=== PATIENT | female | born 1965 | race Caucasian/White ===

== ENCOUNTER 2016-09-22 11:17 | Emergency (ER) | payer OTHER ==
[2016-09-22] MEDS ORDERED: Ondansetron INJ* 2 MG/ML VIAL IV ONE (11:46)
[2016-09-22] MEDS ORDERED: Meclizine TAB* 12.5 MG PO ONE (11:46)
[2016-09-22] MEDS ORDERED: NS 0.9% 1000 ML* 1,000 ML IV ONE (11:46)
[2016-09-22 12:10] LABS: Urine Bilirubin Negative (Negative); Urine Glucose Negative (Negative); Urine Nitrite Negative (Negative)
--- NOTE | 2016-09-22 12:24 | RAD ---
HISTORY: Dizziness, near syncope, head trauma COMPARISONS: November 27, 2012 TECHNIQUE: Multiple contiguous axial CT scans were obtained of the head without intravenous contrast. FINDINGS: HEMORRHAGE/INFARCT: There is no hemorrhage or acute infarct. MASSES/SHIFT: There is no mass or shift. EXTRA-AXIAL SPACES: There are no extra-axial fluid collections. SULCI AND VENTRICLES: The sulci and ventricles are normal in size and position for the patient's stated age. CEREBRUM: There are no focal parenchymal abnormalities. BRAINSTEM: There are no focal parenchymal abnormalities. CEREBELLUM: There are no focal parenchymal abnormalities. VESSELS: The vessels are grossly normal. PARANASAL SINUSES: The paranasal sinuses are clear. ORBITS: The orbits are unremarkable. BONES AND SOFT TISSUE: No bone or soft tissue abnormalities are noted. OTHER: None IMPRESSION: NO ACUTE INTRACRANIAL PATHOLOGY.
[2016-09-22 12:25] LABS: Benzodiazepine Urine Screen None Detected (None Detect)
--- NOTE | 2016-09-22 12:27 | RAD ---
HISTORY: Dizziness anxiety COMPARISONS: June 06, 2015 VIEWS: 2: Frontal dual-energy and lateral views of the chest. FINDINGS: CARDIOMEDIASTINAL SILHOUETTE: The cardiomediastinal silhouette is normal. CULLEN: The cullen are normal. PLEURA: The costophrenic angles are sharp. No pleural abnormalities are noted. LUNG PARENCHYMA: There is a stable mild diffuse reticular pattern. ABDOMEN: The upper abdomen is clear. There is no subphrenic gas. BONES AND SOFT TISSUES: No bone or soft tissue abnormalities are noted. OTHER: None. IMPRESSION: STABLE MILD CHRONIC APPEARING INTERSTITIAL CHANGES. NO ACTIVE CARDIOPULMONARY DISEASE.
[2016-09-22 12:44] LABS: Hematocrit 39 % (35-47); Hemoglobin 13.2 g/dl (12.0-16.0); Mean Corpuscular HGB Conc 34 g/dl (31-36); Mean Corpuscular Hemoglobin 29 pg (27-31); Mean Corpuscular Volume 85 fL (80-97); Mean Platelet Volume 9 um3 (7.4-10.4); Red Blood Count 4.53 10^6/ul (4.0-5.4); Red Cell Distribution Width 14 % (10.5-15); White Blood Count 7.6 10^3/ul (3.5-10.8)
[2016-09-22 12:58] LABS: ALT 33 U/L (7-52); AST 21 U/L (13-39); Albumin 4.3 g/dL (3.2-5.2); Alkaline Phosphatase 55 U/L (34-104); Anion Gap 6 mmol/L (2-11); BUN/Creatinine Ratio 15.9 (8-20); Blood Urea Nitrogen 13 mg/dL (6-24); C Reactive Protein 12.59 mg/L (< 5.00); CO2 Carbon Dioxide 29 mmol/L (22-32); Calcium 9.5 mg/dL (8.6-10.3); Chloride 103 mmol/L (101-111); Creatine Kinase 56 U/L (10-223); EGFR African American 94.1 (>60); EGFR Non-African American 73.2 (>60); Globulin 2.8 g/dL (2-4); Glucose 116 mg/dL (70-100); Magnesium 1.7 mg/dL (1.9-2.7); Potassium 3.8 mmol/L (3.5-5.0); Sodium 138 mmol/L (133-145); Total Protein 7.1 g/dL (6.4-8.9)
[2016-09-22 13:13] LABS: Alcohol < 10 mg/dL (<10)
[2016-09-22 13:24] LABS: TSH (Thyroid Stimulating Horm) 1.72 mcIU/mL (0.34-5.60)
[2016-09-22] MEDS ORDERED: Magnesium Oxide TAB* 400 MG PO ONE (14:08)
[2016-09-22 14:30] VITALS: BP 116/81
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
== END 2016-09-22 14:28 | disposition home or self-care (01) ==
LOC: ED 11:17
DX: R42 Dizziness and giddiness (principal); R51 Headache; I25.2 Old myocardial infarction; K21.9 Gastro-esophageal reflux disease without esophagitis; Z87.891 Personal history of nicotine dependence
CPT/HCPCS: 36415; 70450; 71020; 80053; 80307; 80320; 81003; 82550; 83605; 83735; 83880; 84443; 84484; 85025; 86140; 87502; 93005; 96361; 96374; 99284; A9270-GY; G0480; J2405

== ENCOUNTER 2016-11-15 16:27 | Observation (INO) | payer OTHER ==
[2016-11-15] MEDS ORDERED: Aspirin Low Dose CHEW TAB* 81 MG PO ONE (18:55)
[2016-11-15 19:02] LABS: Hematocrit 40 % (35-47); Hemoglobin 13.4 g/dl (12.0-16.0); Mean Corpuscular HGB Conc 34 g/dl (31-36); Mean Corpuscular Hemoglobin 28 pg (27-31); Mean Corpuscular Volume 84 fL (80-97); Mean Platelet Volume 9 um3 (7.4-10.4); Red Blood Count 4.73 10^6/ul (4.0-5.4); Red Cell Distribution Width 14 % (10.5-15); White Blood Count 10.9 10^3/ul (3.5-10.8)
[2016-11-15 19:17] LABS: Albumin 4.6 g/dL (3.2-5.2); BUN/Creatinine Ratio 18.4 (8-20); Calcium 9.9 mg/dL (8.6-10.3); EGFR African American 87.6 (>60); EGFR Non-African American 68.1 (>60); Total Bilirubin 0.5 mg/dL (0.2-1.0); Total Protein 7.6 g/dL (6.4-8.9)
[2016-11-15] MEDS ORDERED: Albuterol HFA INHALER* 8 gm MDI INH PRN (19:30)
[2016-11-15] MEDS ORDERED: ALPRAZolam TAB* 0.25 MG PO PRN (19:30)
[2016-11-15] MEDS: Heparin VIAL(*) 5000 UNITS/ML VIAL (FIVE THOUSAND) SUBCUT SCH (21:07)
--- NOTE | 2016-11-15 21:10 | RAD ---
Indication: Chest pain, dizziness. Single frontal view of the chest performed at 1922 hours was reviewed. Comparison is made with previous exam dated September 22, 2016. No mediastinal shift is noted. Heart is of normal size and configuration. Lung dougherty appear clear. IMPRESSION: NO ACTIVE CARDIOPULMONARY DISEASE IS NOTED.
--- NOTE | 2016-11-15 21:39 | HP ---
CC: Dr. Jacqui Joseph * [facility] MEDICINE HISTORY AND PHYSICAL: DATE OF ADMISSION: 11/15/16 PRIMARY CARE PHYSICIAN: Dr. Jacqui Joseph. ATTENDING PHYSICIAN: Dr. Jeet Olvera *(dictation provided by Nesha Luis NP). CHIEF COMPLAINT: Presyncopal episodes. HISTORY OF PRESENT ILLNESS: Ms. Lieberman is a 51-year-old female with a past medical history of obesity, BOOP, anxiety, who presents today to the hospital with concern for presyncopal episodes. Ms. Lieberman states that over the past few weeks, she has been having episodes where she will feel like she is about to pass out. She describes her vision as gtunneling and going dark. She describes feeling sweaty and tingly. She has had some nausea. She has felt short of breath. She is also describing burning sensation in the center of her chest with these episodes. These episodes occur randomly and they are not associated with activity. She was a previous smoker and alcoholic, who has been abstinent from both of these for the past couple of years. She has been in increased stress recently with plans for going to a conference this weekend. Because of these symptoms, she went to see Dr. Sears, who felt that it was not pulmonary in nature. She also went to see Gastroenterology, who felt that these symptoms were not gastroenterological in nature. The patient also described symptoms consistent with IBS with constipation, diarrhea, abdominal pain, nausea, and vomiting. The plan had been for the patient to follow up with the family services manager for endoscopy, both upper and lower, and that is being arranged outpatient. These symptoms are separate from these episodes where she feels presyncopal. After she went to see the family services manager today , they recommended that she follow up with Cardiology. She stopped by Dr. Best's office where an EKG was checked and there was concern that there were subtle changes in the ST segments and therefore, she was asked to come to the emergency room for evaluation. The patient states she needed to stop at home to take care of her pet, but then did present today. She states that while at Dr. Best's office, she had another episode where she felt presyncopal. She describes having a sense of "impending doom." She had another episode on driving back here to the hospital today where she felt like she would pass out and actually was about to pull off the road when the symptoms resolved. In the emergency room today, the patient's troponin is 0.00. Her EKG showed some depressions in V2, V3, T-wave inversions in V2 and V3, with a little bit of flattening in V3 compared to previous. She is in sinus rhythm. PAST MEDICAL HISTORY: 1. History of PVCs, on metoprolol. 2. Obesity. 3. Anxiety. 4. History of alcoholism, currently alcohol free for the past 2 years. 5. 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 6. History of recurrent aspiration pneumonitis secondary to alcoholism. 7. IBS. PAST SURGICAL HISTORY: 1. History of x2. 2. History of hysterectomy and oophorectomy. MEDICATIONS: 1. B complex vitamin 1 tab daily. 2. Calcium 2000 mg p.o. daily. 3. Calcium, magnesium, zinc 1 tab p.o. daily. 4. Fluticasone/vilanterol 1 inhalation daily. 5. Multivitamin 1 tab p.o. daily. 6. [place]-3 fatty acid 1200 mg p.o. daily. 7. Alprazolam 0.25 mg p.o. t.i.d. p.r.n. 8. Albuterol inhaler 2 puffs inhaled q.4 hours p.r.n. 9. Cholecalciferol 1000 units p.o. daily. 10. Escitalopram 20 mg p.o. daily. 11. Metoprolol succinate 50 mg p.o. daily. 12. Spironolactone 25 mg p.o. daily. ALLERGIES: To NICKEL and SULFA DRUGS. FAMILY HISTORY: The patient states her father has but she did not know the circumstances surrounding that. Her mother is alive and well. No history of significant cardiac disease in the family per her recollection today. SOCIAL HISTORY: Again, the patient is a former smoker, but quit and has been off alcohol for the past 2 years. REVIEW OF SYSTEMS: A 14-point review of systems is completed on Ms. Lieberman and all those not mentioned above were negative. PHYSICAL EXAMINATION GENERAL: Ms. Lieberman is sitting in the bed. She is in no acute distress. VITAL SIGNS: Temperature 97.5, heart rate 60, respiratory rate 16, O2 saturation 97% on room air, blood pressure 103/58. LUNGS: Clear to auscultation bilaterally with no accessory muscle use and good aeration. HEART: S1, S2. No murmur, rub, or gallop, and regular. ABDOMEN: Soft and nontender with bowel sounds positive x4. EXTREMITIES: No cyanosis or edema. NEURO: She is alert, she is oriented x3. She moves all extremities equally. There is no facial asymmetry or focal weakness. Extraocular movements are intact. SKIN: Intact. DIAGNOSTIC STUDIES/LAB DATA: Sodium 135, potassium 4.0, chloride 100, serum bicarbonate 27, BUN 16, creatinine 0.87, glucose 115. Troponin 0.00. WBC 10.9 , hemoglobin 13.4, hematocrit 40, platelet count 222. EKG is as been read above. Chest x-ray is pending. ASSESSMENT AND PLAN: Ms. 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 Dr. Best's office was concerned that her EKG showed some ST depression and T-wave inversions that were perhaps new. Therefore, she was asked to come to the emergency room and to be admitted for further evaluation. Our plans are as follows: 1. Presyncopal episodes. Again, the patient has a first troponin which was negative. Her EKG does show some mild changes. Plan to repeat EKG in the a.m. Her troponins will be trended and she will go on for nuclear medicine chemical stress test tomorrow. She will also be monitored on telemetry for any evidence of arrhythmia that could be leading to this symptom. Also plan to check orthostatic vitals. I do not have any other clear sense of what would be causing these symptoms if they are not cardiac in nature. The patient does describe being under extreme stress recently, perhaps, it is a stress reaction. She also reports having some gastrointestinal upset that is a little more intense for her than usual and she is following up with Gastroenterology for that. Further workup will be determined based on clinical course. 2. 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 Plan to continue home medications. 3. Premature ventricular contractions. Continue metoprolol. 4. Hypertension. Continue spironolactone. 5. DVT prophylaxis. With heparin subcu. 6. Disposition. To telemetry floor. TIME SPENT: Approximately 60 minutes was spent in the admission of this patient , more than half the time spent with the patient at the bedside reviewing the events leading to this hospitalization, performing the physical examination, and reviewing my plan of care. NESHA LUIS NP [id number]/[facility] #: [id number] [place]
[2016-11-16] MEDS: Heparin VIAL(*) 5000 UNITS/ML VIAL (FIVE THOUSAND) SUBCUT SCH ×2 (05:34→15:12)
[2016-11-16] MEDS ORDERED: Metoprolol Succinate XL TAB* 50 MG PO SCH (09:00)
[2016-11-16] MEDS ORDERED: Citalopram TAB* 40 MG PO SCH (09:00)
[2016-11-16] MEDS ORDERED: Cholecalciferol TAB* 1000 UNITS PO SCH (09:00)
[2016-11-16] MEDS ORDERED: Spironolactone TAB* 25 MG PO SCH (09:00)
[2016-11-16] MEDS ORDERED: Regadenoson* 0.4 MG/5 ML SYRINGE ONE (12:13)
[2016-11-16] MEDS ORDERED: Aminophylline IV* 25 MG/ML 10 ML VIAL ONE (12:14)
--- NOTE | 2016-11-16 14:49 | PN ---
Subjective Date of Service: 11/16/16 Interval History: Ms. Lieberman denies complaint today and is eager for discharge to home. Objective Active Medications: Albuterol (Ventolin Hfa Inhaler*) 1 puff INH Q4H PRN Alprazolam (Xanax Tab*) 0.25 mg PO TID PRN Cholecalciferol (Vitamin D Tab*) 1,000 units PO DAILY [facility] Citalopram Hydrobromide (Celexa Tab*) 40 mg PO DAILY [facility] Heparin Sodium (Porcine) (Heparin Vial(*)) 5,000 units SUBCUT Q8HR [facility] Metoprolol Succinate (Toprol Xl Tab*) 50 mg PO DAILY [facility] Spironolactone (Aldactone Tab*) 25 mg PO DAILY [facility] Vital Signs 11/15/16 11/15/16 11/15/16 19:09 19:25 19:32 Temperature Pulse Rate 70 71 Respiratory 17 17 Rate Blood Pressure 125/79 (mmHg) O2 Sat by Pulse 94 Oximetry 11/15/16 11/15/16 11/16/16 20:00 23:46 00:07 Temperature 98.7 F 97.5 F Pulse Rate 75 58 Respiratory 20 20 17 Rate Blood Pressure 128/93 97/61 (mmHg) O2 Sat by Pulse 94 97 Oximetry 11/16/16 11/16/16 11/16/16 02:03 04:09 07:24 Temperature 97.3 F 98.0 F Pulse Rate 58 59 Respiratory 16 16 20 Rate Blood Pressure 103/62 105/65 (mmHg) O2 Sat by Pulse 97 93 Oximetry 11/16/16 11:10 Temperature 97.5 F Pulse Rate 61 Respiratory 16 Rate Blood Pressure 114/81 (mmHg) O2 Sat by Pulse 96 Oximetry Oxygen Devices in Use Now: None Appearance: Female sitting up in bed in NAD Eyes: No Scleral Icterus Ears/Nose/Mouth/Throat: Mucous Membranes Moist Neck: Trachea Midline Respiratory: Symmetrical Chest Expansion and Respiratory Effort, Clear to Auscultation Cardiovascular: NL Sounds; No Murmurs; No JVD, No Edema Abdominal: NL Sounds; No Tenderness; No Distention Lymphatic: No Cervical Adenopathy Extremities: No Edema Skin: No Rash or Ulcers Neurological: Alert and Oriented x 3, NL Muscle Strength and Tone Nutrition: Taking PO's Result Diagrams: 11/15/16 18:50 11/15/16 18:50 Additional Lab and Data: Lab Results 11/15/16 Range/Units 18:50 WBC 10.9 H (3.5-10.8) 10^3/ul RBC 4.73 (4.0-5.4) 10^6/ul Hgb 13.4 (12.0-16.0) g/dl Hct 40 (35-47) % MCV 84 (80-97) fL MCH 28 (27-31) pg MCHC 34 (31-36) g/dl RDW 14 (10.5-15) % Plt Count 222 (150-450) 10^3/ul MPV 9 (7.4-10.4) um3 Neut % (Auto) 67.6 (38-83) % Lymph % (Auto) 24.5 L (25-47) % [place] % (Auto) 5.2 (1-9) % Eos % (Auto) 1.0 (0-6) % Baso % (Auto) 1.7 (0-2) % Absolute Neuts (auto) 7.4 (1.5-7.7) 10^3/ul Absolute Lymphs (auto) 2.7 (1.0-4.8) 10^3/ul Absolute Monos (auto) 0.6 (0-0.8) 10^3/ul Absolute Eos (auto) 0.1 (0-0.6) 10^3/ul Absolute Basos (auto) 0.2 (0-0.2) 10^3/ul Absolute Nucleated RBC 0.01 10^3/ul Nucleated RBC % 0 Assess/Plan/Problems-Billing Assessment: Mr. 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 - Patient Problems (1) Pre-syncope Comment: Associated with chest pain. Trops negative. Concern new possibly ischemic EKG changes. Stress test without evidence of reversible ischemia, low risk. (2) BOOP (bronchiolitis obliterans with organizing pneumonia) Comment: Asymptomatic. Follows with Dr. Sears. Continue breo and albuterol. (3) Anxiety Comment: Continue alprazolam and escitalopram. (4) Afib Comment: In SR. Not on anticoagulation due to history of cerebral aneurysm, follows with Dr. Murray. (5) DVT prophylaxis Comment: Heparin SQ. Status and Disposition: OBV. Anticipate discharge to home when medically stable.
--- NOTE | 2016-11-16 14:59 | RAD ---
Edited for charges. INDICATION: Near syncopal episodes. COMPARISON: No relevant prior exams available on the [facility] [place] for comparison. TECHNIQUE: 10.570 mCi of Tc-99m Myoview were administered IV. SPECT images of the heart were obtained. Later on the same day, under the direction of Dr. Dodd, the patient was given an IV injection of a pharmacologic stress agent. Subsequently, the patient was given an IV injection of 25.300 mCi Tc-99m Myoview. SPECT images of the heart were obtained and a gated wall motion study was performed. FINDINGS: Gated wall motion images were obtained at stress and demonstrate wall motion to be within normal limits. The calculated left ventricular ejection fraction is 65 % at stress. Estimated LEFT ventricular end diastolic volume is 113 mL. TID 1.14. Artifact from inferior gut activity noted. Suggestion of mild fixed thinning at the cardiac apex. Based on review of the attenuation corrected and non corrected images the distribution of radiopharmaceutical within the myocardium on the stress and rest images is within normal limits. No suspicious fixed or reversible regions of hypoperfusion evident. IMPRESSION: 1. Upper normal LEFT ventricular end-diastolic volume. Normal range LEFT ventricular ejection fraction at stress. 2. No compelling evidence for presence of an infarct or stress-induced ischemia. ASSESSMENT: Low risk. MTDD
[2016-11-16 16:11] VITALS: BP 126/80
--- NOTE | 2016-11-17 03:31 | DS ---
CC: Dr. Jacqui Joseph; Dr. Best * DISCHARGE SUMMARY: DATE OF ADMISSION: 11/15/16 DATE OF DISCHARGE: 11/16/16 ATTENDING PHYSICIAN: Yazan Bueno MD *(dictation provided by Nesha Luis NP ) PRIMARY CARE PHYSICIAN: Dr. Jacqui Joseph. BINDER LAYER: Danitza Best MD PRIMARY DIAGNOSIS: Presyncopal episodes. SECONDARY DIAGNOSES: 1. History of premature ventricular contractions, on metoprolol. 2. Obesity. 3. Anxiety. 4. History of alcoholism, currently abstinent from past 2 years. 5. 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 6. History of recurrent aspirations pneumonitis secondary to alcoholism. 7. Irritable bowel syndrome. PAST SURGICAL HISTORY: 1. History of x2. 2. History of hysterectomy and oophorectomy. MEDICATIONS AT THE TIME OF DISCHARGE: There are no medications changes: 1. B complex vitamin 1 tab daily. 2. Calcium 2000 mg p.o. daily. 3. Calcium, magnesium, and zinc 1 tab p.o. daily. 4. Fluticasone/vilanterol 1 inhalation daily. 5. Multivitamin 1 tab p.o. daily. 6. Hammond-3 fatty acid 1200 mg p.o. daily. 7. Alprazolam 0.25 mg p.o. t.i.d. p.r.n. 8. Albuterol inhaler 2 puffs inhaled q.4 hours p.r.n. 9. Cholecalciferol 1000 units p.o. daily. 10. Escitalopram 20 mg p.o. daily. 11. Metoprolol succinate 50 mg p.o. daily. 12. Spironolactone 25 mg p.o. daily. HOSPITAL COURSE: Ms. Lieberman is a 51-year-old female who presents to the hospital on 11/15/16 with concern for episodes of presyncope. Please see the dictated H and P from myself for complete details. In brief, the patient had reported that she had had episodes where she felt like she was going to pass out starting in September. There was no clear pattern to these episodes. One episode happened while at school while walking out, one episode happened at [employer] while standing in line to pay, and one episode happened when she was sitting on a couch at home. She describes feeling like the room was going dark , with symptoms of diaphoresis and nausea. She has had some discomfort in the center of her chest with these episodes. She has been evaluated in the emergency department here and then in [place] for the episodes with no acute findings. She followed with Dr. 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 She also followed up at [facility], and she is scheduled for an upper and lower endoscopy, though it was not felt that her her presyncopal episodes were related to any GI complaint. She then saw Dr. Best and the EKG was obtained, which showed concern for possible ST segment changes and therefore she came to the emergency room. In the emergency room here, she had troponin, which was 0. EKG showed suppressions of V2, V3 with T-wave inversions in V2, V3 with sinus rhythm. Ms. Lieberman was admitted to the hospital. She went on for a stress test, which was read as follows: "Upper normal left ventricular end-diastolic volume, normal range left ventricular ejection fraction at rest. No compelling evidence for presence of infarct or stress-induced ischemia, low risk." Ms. Lieberman had no episodes of presyncope while here in the hospital. She had no evidence of arrhythmia on telemetry monitoring. Her orthostatic vital signs did not show her to be orthostatic. Her symptoms do not appear to be related to any ischemic heart disease. I question, whether or not perhaps she does have arrhythmia leading to these symptoms although her description of them are a bit unusual. I have recommended to her that she go follow up with Dr. Best and possibly consider a loop monitor implantation. I have also discussed with her that her symptoms could be related to stress and anxiety, a possibility that she herself suggested. Regardless, I think she warrants consideration of loop monitor implantation and close follow up, Ms. Lieberman is medically stable discharge to home to follow up with Dr. Best and Dr. Jacqui Joseph. DISPOSITION: Home. DIET: Low-fat, low salt. ACTIVITY: As tolerated. FOLLOWUP PLANS: Please follow up with Dr. Best and Dr. Jacqui Joseph. I asked the patient to call for an appointment tomorrow morning. TIME SPENT: Approximately 60 minutes was spent in the discharge of this patient , more than half of the time was spent with the patient at the bedside reviewing the events leading up to this hospitalization, performing the physical examination, and reviewing my plan of care. NESHA LUIS NP [id number]/[facility] #: [id number] [place]
== END 2016-11-16 17:18 | disposition home or self-care (01) ==
LOC: ED 16:27 → MEDTELE 19:05
PROVIDERS: ADMIT Internal Medicine; ATTEND Internal Medicine
DX: R55 Syncope and collapse (principal); I49.3 Ventricular premature depolarization; E66.9 Obesity, unspecified; F41.9 Anxiety disorder, unspecified; F10.20 Alcohol dependence, uncomplicated; K58.9 Irritable bowel syndrome, unspecified; Z79.899 Other long term (current) drug therapy; Z88.2 Allergy status to sulfonamides; Z87.891 Personal history of nicotine dependence; R94.31 Abnormal electrocardiogram [ECG] [EKG]
CPT/HCPCS: 36415; 71010; 78452; 80053; 83605; 84484; 85025; 93005; 93017; 96372; 99283; A9270-GY; A9502; G0378; J0280; J1644; J2785

== ENCOUNTER 2016-12-03 09:01 | Day surgery (SDC) | payer OTHER ==
--- NOTE | 2016-11-27 22:28 | HP ---
PREOPERATIVE HISTORY AND PHYSICAL: DATE OF ADMISSION: 12/03/16 PROVIDER: David Green MD (DICTATED BY RALF ANDREWS) CHIEF COMPLAINT: Left foot pain. HISTORY OF PRESENT ILLNESS: Jarrod is a 51-year-old female who has been followed by Dr. Green for ongoing pain and swelling in the left foot secondary to a ganglion cyst. This has been giving her some dorsal nerve tingling as well. She underwent an MRI showing a multiloculated ganglion cyst which stretches the entire length of the first web space and tracks to the second MTP joint. She states that it is gradually getting worse and is making footwear harder to find that is comfortable without pressing on this area. She is interested in surgical intervention for excision of the cyst. PAST MEDICAL HISTORY: 1. History of high blood pressure. 2. History of a heart attack. 3. Arthritis. 4. Thyroid nodules. 5. GERD. 6. Depression. 7. Anxiety. 8. History of alcohol abuse. PAST SURGICAL HISTORY: 1. Tonsils and adenoids. 2. Pilonidal cystectomy. 3. Appendectomy. 4. Two C-sections. 5. Complete hysterectomy. 6. An open lung biopsy. She reports facial itching and also states that she stopped breathing with anesthesia. CURRENT MEDICATIONS: 1. Breo Ellipta 100/25 mcg inhaler 1 to 2 puffs inhaled daily. 2. Ranitidine HCl 300 mg 1 p.o. q.h.s. 3. Toprol-XL 50 mg 1 p.o. daily. 4. Lexapro 20 mg 1 p.o. daily. 5. Multivitamin 1 p.o. daily. 6. Vitamin B complex 1 p.o. daily. 7. Calcium and magnesium 750, 300/300 mg daily. 8. Fish oil supplement daily. 9. Vitamin C supplement daily. 10. Spironolactone 25 mg 1 p.o. daily. 11. Vitamin D3 1000 international units 1 p.o. daily. 12. Probiotic as needed. 13. Ventolin HFA 108 mcg 1 to 2 puffs q.4 hours p.r.n. 14. Xanax 0.25 mg 1 p.o. 4 times daily as needed. ALLERGIES: SULFA ANTIBIOTICS and NICKEL. FAMILY HISTORY: Positive for high blood pressure. SOCIAL HISTORY: The patient lives alone. 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 She is a previous smoker; however, she quit 2-1/ 2 years ago. She smoked for 30 years prior to that. She denies alcoholic beverages, though she is a recovering addict. She does not exercise regularly. REVIEW OF SYSTEMS: Constitutional: Positive for recent hospitalization for chest pain; however, she was diagnosed with anxiety. Negative for fevers, chills, or night sweats. Eyes: Negative for blurred or double vision. ENT: Positive for runny nose secondary to allergies. Negative for frequent nosebleeds or hearing changes. Cardiovascular: Positive for recent chest pain. Negative for heart palpitations. Respiratory: Positive for shortness of breath. Negative for chronic cough. Gastrointestinal: Negative for nausea , vomiting, diarrhea, or constipation. Positive for GERD. Genitourinary: Negative for urinary tract infections or kidney stones. Musculoskeletal: Negative for chronic back pain or previous fractures. Neurologic: Negative for dizziness, lightheadedness, peripheral neuropathy, or weakness. Skin: Positive for rash on her face. Negative for any other skin lesions. Endocrine: Positive for recent weight gain. Negative for fatigue. Hematology: Negative for easy bleeding or bruising. Allergic: Positive for seasonal allergies. Negative for hay fever. Psychiatric: Positive for depression and anxiety. PHYSICAL EXAMINATION GENERAL: She is a well-developed, well-nourished pleasant female in no acute distress at rest. She is alert and oriented x3 with appropriate mood and affect. VITAL SIGNS: The patient is 5 feet 9 inches, 275 pounds, blood pressure 115/75 , pulse of 76, temperature 97.2, respirations 17. HEENT: Normocephalic, atraumatic. Her hearing and vision are grossly intact. NECK: Her trachea is midline. RESPIRATORY: Lungs clear to auscultation bilaterally. No wheezes, rales, or rhonchi. CARDIOVASCULAR: Regular rate and rhythm. No murmurs, rubs, or gallops. Normal S1, S2. ABDOMEN: Obese, nontender. Normal bowel sounds. EXTREMITIES: Exam of the left lower extremity, skin is intact without abrasions or open wounds. There is a palpable soft tissue mass over the dorsum of the foot that extends down into the forefoot. This is tender to palpation. She has a strongly positive Tinel's over the DP and in this area. Her sensation to light touch is intact distally. She has a 2+ dorsalis pedis pulse. IMPRESSION: Left foot ganglion cyst. PLAN: The patient is to undergo left midfoot ganglion cyst excision by Dr. Green on 12/03/16. The risks, benefits, and postoperative course were discussed with the patient at length and she would like to proceed. A prescription for oxycodone was sent to her pharmacy for postoperative pain. All of her questions were answered to her full satisfaction. She is understanding to call if she develops problems or concerns. We will follow up with the patient in the postoperative phase. RALF ANDREWS [id number]/[facility] #: [id number] [place]
[~2016-12-03 09:01] MED LIST: Buffered Lidocaine 0.9% SYRIN* 5 ML/SYR SYRINGE INTRADERM ONE; Buffered Lidocaine 0.9% SYRIN* 5 ML/SYR SYRINGE ONE; Famotidine IV* 10 MG/ML 2 ML (20 mg) IV ONE; Famotidine IV* 10 MG/ML 2 ML (20 mg) ONE; ceFAZolin 2 GM PREMIX(*) 2 GM/50 ML BAG IVPB ONE
[2016-12-03] MEDS ORDERED: Ondansetron INJ* 2 MG/ML VIAL ONE (09:28)
[2016-12-03] MEDS ORDERED: Ketorolac INJ* 30 MG/ML 1 ML VIAL ONE (09:28)
[2016-12-03] MEDS ORDERED: Dexamethasone IV* 4 MG/ML 1 ML (4 MG) ONE (09:28)
[2016-12-03] MEDS ORDERED: Propofol* 10 MG/ML 20 ML BTL IV PUSH ONE (09:28)
[2016-12-03] MEDS ORDERED: Lidocaine 2% PF * 5 ML VIAL ONE (09:28)
[2016-12-03] MEDS ORDERED: fentaNYL* 50 MCG/ML 2 ML VIAL (100 MCG VIAL) ONE ×2 (09:29→10:29)
[2016-12-03] MEDS ORDERED: KETAMINE HCL* 50 MG/ML 10 ML VIAL ONE (09:29)
[2016-12-03] MEDS ORDERED: Midazolam* 1 MG/ML 5 ML VIAL (5 MG) ONE (09:29)
[2016-12-03] MEDS ORDERED: Lidocaine 2% PF* 10 ML AMP ONE (10:04)
[2016-12-03] MEDS ORDERED: Bupivacaine 0.5% SDV PF* 30 ML VIAL ONE (10:04)
[2016-12-03] MEDS ORDERED: Ondansetron INJ* 2 MG/ML VIAL IV PRN (10:43)
[2016-12-03] MEDS ORDERED: oxyCODONE/Acetamin 5/325 MG* TAB PO PRN (10:43)
[2016-12-03] MEDS ORDERED: DiMENhydriNATE IV* 50 MG/ML VIAL IV PUSH PRN (10:43)
[2016-12-03] MEDS ORDERED: fentaNYL* 50 MCG/ML 2 ML VIAL (100 MCG VIAL) IV PRN (10:43)
[2016-12-03] MEDS ORDERED: HYDROmorphone* 1 MG/ML 1 ML SYR ONE (11:06)
[2016-12-03] MEDS ORDERED: oxyCODONE/Acetamin 5/325 MG* TAB ONE (12:12)
[2016-12-03 13:06] VITALS: BP 125/68
--- NOTE | 2016-12-04 16:13 | OP ---
DATE OF OPERATION: 12/03/16 - [facility] DATE OF : 61 SURGEON: David Green MD TECHNICAL MARKETING ENGINEER: Sylwia Barriga PA-C ANESTHESIOLOGIST: Petr Solomon MD ANESTHESIA: General PRE-OP DIAGNOSIS: Cyst, left ganglion, mid foot. POST-OP DIAGNOSIS: Cyst, left ganglion, mid foot. OPERATIVE PROCEDURE: Excision of cyst, left mid foot. DESCRIPTION OF PROCEDURE: The patient was taken to the operating room where S- shaped incision was made along the first and second metatarsal interspace dorsally. The ganglion was encountered just deep to the tendons. We freed up the distal end of the tendon and retracting it proximally as we dissected it away from the first and second metatarsals. Proximally, there was a small tongue of the ganglion coursing more laterally near the base of the second metatarsal. This was transected and then we irrigated and cauterized the small tail at that level. The connecting branch over the redundant branch of the deep peroneal artery was interrupted at this point and cauterized. The cyst was sent for pathology. We irrigated all the area thoroughly and closing with 2 -0 Vicryl, 3-0 nylon for the skin and a compressive dressing plaster splint. [id number]/[facility] #: [id number] MTDD
== END 2016-12-03 13:14 | disposition home or self-care (01) ==
LOC: OR 09:01
PROVIDERS: ATTEND Orthopaedic Surgery
DX: M67.472 Ganglion, left ankle and foot (principal); I10 Essential (primary) hypertension; I25.2 Old myocardial infarction; K21.9 Gastro-esophageal reflux disease without esophagitis; F32.9 Major depressive disorder, single episode, unspecified; F41.9 Anxiety disorder, unspecified; Z88.2 Allergy status to sulfonamides; Z87.891 Personal history of nicotine dependence
CPT/HCPCS: 88304; A9270-GY; J0690; J1100; J1170; J1885; J2001; J2250; J2405; J2704; J3010

== ENCOUNTER 2017-11-28 09:31 | Day surgery (SDC) | payer OTHER ==
[~2017-11-28 09:31] MED LIST changes: -Buffered Lidocaine 0.9% SYRIN* 5 ML/SYR SYRINGE ONE; +Bupivacaine 0.25% SDV* 30 ML ONE; -Famotidine IV* 10 MG/ML 2 ML (20 mg) IV ONE; -Famotidine IV* 10 MG/ML 2 ML (20 mg) ONE; +Sodium Citrate/Citric Acid* 15 ML UDC PO ONE; -ceFAZolin 2 GM PREMIX(*) 2 GM/50 ML BAG IVPB ONE
[2017-11-28] MEDS ORDERED: ceFAZolin 2 GM PREMIX (*) 2 GM/50 ML BAG IVPB ONE (09:52)
[2017-11-28] MEDS ORDERED: ceFAZolin 1 GM VIAL(*) ONE (09:52)
[2017-11-28] MEDS ORDERED: Sodium Citrate/Citric Acid* 15 ML UDC ONE (09:53)
[2017-11-28] MEDS ORDERED: Mepivacaine 2% MPF (20 MG/ML)* 20 ML MPF ONE (10:19)
[2017-11-28] MEDS ORDERED: Mepivacaine 1% (10 MG/ML)* 30 ML SDV ONE (10:20)
[2017-11-28] MEDS ORDERED: fentaNYL* 50 MCG/ML 2 ML VIAL (100 MCG VIAL) ONE (10:21)
[2017-11-28] MEDS ORDERED: Midazolam* 1 MG/ML 2 ML VIAL (2 MG) ONE ×4 (10:21→11:57)
[2017-11-28] MEDS ORDERED: Lidocaine 0.5%* 50 ML SDV ONE (11:12)
[2017-11-28] MEDS ORDERED: KETAMINE HCL* 50 MG/ML 10 ML VIAL ONE (11:30)
[2017-11-28] MEDS ORDERED: Propofol* 10 MG/ML 20 ML BTL IV PUSH ONE (11:37)
[2017-11-28] MEDS ORDERED: Naloxone* 0.4 MG/ML 1 ML VIAL IV PRN (12:01)
[2017-11-28] MEDS ORDERED: Levalbuterol 0.63MG/3ML NEB* UNIT OF USE INH ONE (13:11)
[2017-11-28 13:42] VITALS: BP 111/60
--- NOTE | 2017-11-29 08:34 | OP ---
DATE OF OPERATION: 11/28/17 - [facility] DATE OF : 61 SURGEON: Davdi Urbano MD MEDICAL AND SCIENTIFIC ILLUSTRATOR: RALF Gonzalez, followed by RALF Roberts. ANESTHESIOLOGIST: Dr. Reynolds. ANESTHESIA: Axillary block plus local plus MAC. 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 OPERATIVE PROCEDURE: 1. Left thumb basal joint arthroplasty with trapeziectomy. 2. Distally based split flexor carpi radialis tendon transfer with some suspension and tendon interposition. ESTIMATED BLOOD LOSS: 10 mL. COMPLICATIONS: None. FINDINGS: Severe osteoarthritis as expected. The scaphotrapezoid joint was okay. DESCRIPTION OF PROCEDURE: Jarrod was seen in the preoperative holding area. The correct side, site, and procedure were identified. We came back to the operating room. The arm was prepped and draped in the usual fashion. A time- out was performed. I began by exsanguinating the arm with the Esmarch and the tourniquet was inflated to 250 mmHg. I then made a longitudinal incision just dorsal to the first dorsal compartment tendons. Dissection was carried down full thickness to preserve the dorsal sensory nerve. The radial artery was mobilized and retracted out of the way with the Ragnell retractor. I then raised the subperiosteal and capsular flaps to expose the trapezium. The soft tissue all about the trapezium was released. A rongeur was used to excise the trapezium in piecemeal fashion until it was excised in its entirety together with all the osteophytes and synovitis. The FCR tendon was healthy and intact in the base of the wound. My research lab assistant applied axial traction on the second ray and placed the [place] elevator into the scaphotrapezoid joint. I was able to inspect the joint. The articular surface looked good. I then released the soft tissue subperiosteally over the dorsal radial aspect of the thumb and metacarpal base. Sequentially larger drill beads were used to drill a drill hole from the dorsal radial aspect of the base of thumb metacarpal extending out the volar ulnar articular surface, corner of articular surface just adjacent to the base of the second metacarpal. The bone tunnel and area was copiously irrigated. We then turned out attention to harvesting the tendon. I made a 1 to 2 cm transverse incision over the distal FCR tendon just proximal to the wrist flexion crease. The sheath overlying the tendon was released. The tendon was pulled up into the wound with the right angle clamp. I then split the tendon with the 15-blade and a 26 gauge wire was passed into the tendon splint. I then came about 7 cm proximal to the first transverse incision and made a second incision and then a third transverse incision proximal to that. The sheath was released along the entirety of the tendon. A Pooja clamp was then used to pull the wire underneath the skin into the most proximal wound releasing the tendon at the musculotendinous junction. The free end of the tendon was then pulled into the distal wound. The end of the tendon was sewn tightly with the 3-0 Ethibond suture to prevent fraying. The muscle remnant was debrided off with the knife. I then used two 26 gauge wires to pass the tendon from the distal wrist wound into the thumb base wound. The tendon was split all the way down to the base of the second metacarpal. I then took the split end and used the 26-gauge wire to pass it through my bone tunnel back around the intact limb and then appropriate tension was set and the tendon transfer was secured with 3-0 Ethibond [id number] suture securing all 3 limbs at the transfer. Two additional [id number] sutures were used to complete the tendon transfer, each of these sewing intact limb to intact limb. The remainder of the tendon end was rolled up into a ball and secured with a 3- 0 Ethibond suture. This was placed as an interposition between the base of the metacarpal and the distal pole of the scaphoid and trapezoid. The wounds were irrigated out. The capsule was closed with 3-0 Ethibond suture. The skin was closed with 4-0 nylon suture. I had already infiltrated Marcaine and 0.5% Lidocaine prior to making skin incision. So, no additional local was needed. Wounds were dressed with Xeroform, 4x4s, sterile Webril, and then a thumb spica splint was placed with the IP joint free. Tourniquet was deflated while we are closing the skin. The hand pinked up immediately. After dressings were on, she was taken to the recovery room in stable condition. [id number]/[facility] #: [id number] [facility] HOSPITALJoby
== END 2017-11-28 13:58 | disposition home or self-care (01) ==
LOC: OREAST 09:31
PROVIDERS: ATTEND Orthopaedic Surgery Hand Surgery
DX: M18.12 Unilateral primary osteoarthritis of first carpometacarpal joint, left hand (principal); I10 Essential (primary) hypertension; E78.00 Pure hypercholesterolemia, unspecified; I51.9 Heart disease, unspecified; Z87.891 Personal history of nicotine dependence; Z88.2 Allergy status to sulfonamides; Z91.048 Other nonmedicinal substance allergy status
CPT/HCPCS: A9270-GY; J0670; J0690; J2250; J2704; J3010

== ENCOUNTER 2017-12-18 11:50 | Day surgery (SDC) | payer OTHER ==
[2017-12-18] MEDS ORDERED: Lidocaine 1% MPF wEPI 200,000* 30 ML SDV ONE (12:02)
--- NOTE | 2017-12-26 22:56 | OP ---
CC: Jacqui Joseph MD * DATE OF OPERATION: 12/18/17 - [facility] DATE OF : 61 SURGEON: Malik Paredes MD DISTRIBUTOR CLEANER: None. ANESTHESIA: Local. PRE-OP DIAGNOSIS: Lipoma, left upper back. POST-OP DIAGNOSIS: Lipoma, left upper back. OPERATIVE PROCEDURE: Excision of lipoma, left upper back. ESTIMATED BLOOD LOSS: Minimal. IV FLUIDS: None. SPECIMEN: Lipoma, left upper back. DRAINS: None. COMPLICATIONS: None. COUNTS: Instrument, needle, and sponge counts correct. DESCRIPTION OF PROCEDURE: The patient was brought to the operating room and placed on the table prone. The skin overlying the mass had been marked preoperatively and site was sterilely prepped, draped, and time-out was performed. Local anesthetic was infiltrated consisting of 1% lidocaine with epinephrine was infiltrated into the skin and soft tissue. A transverse incision was made over the palpable mass. Subcutaneous tissues were entered and using a combination of sharp and blunt dissection, a fatty mass was excised from the surrounding tissues. This measured 2 x 1.5 x 1 cm. The specimen was submitted to pathology in formalin. The wound hemostasis was assured with cautery. Closure was performed with 4-0 Monocryl in a running subcuticular fashion. Steri-Strips were applied. The patient tolerated the procedure well. [id number]/[facility] #: [id number] [facility]
== END 2017-12-18 12:57 | disposition home or self-care (01) ==
LOC: OR 11:50
PROVIDERS: ATTEND Surgery
DX: D17.1 Benign lipomatous neoplasm of skin and subcutaneous tissue of trunk (principal); Z87.891 Personal history of nicotine dependence; E78.5 Hyperlipidemia, unspecified; J45.909 Unspecified asthma, uncomplicated; K21.9 Gastro-esophageal reflux disease without esophagitis; E78.2 Mixed hyperlipidemia; E66.01 Morbid (severe) obesity due to excess calories; G47.33 Obstructive sleep apnea (adult) (pediatric); I10 Essential (primary) hypertension
CPT/HCPCS: 88304; J2001

== ENCOUNTER 2018-04-25 12:28 | Inpatient (IN) | payer OTHER ==
[2018-04-25] MEDS ORDERED: Aspirin 81 mg CHEW TAB* 81 MG TAB.CHEW PO ONE (12:42)
[2018-04-25] MEDS ORDERED: Nitroglycerin TAB 0.4 MG* 0.4 MG TAB SL ONE (12:42)
--- NOTE | 2018-04-25 12:43 | ED ---
HPI Chest Pain - HPI Summary HPI Summary: Patient is a 52 y/o F w/ c/o SOB and "cold tingling" in her chest with radiation to shoulders. She states that she had an episode of SOB which awoke her from her sleep today at 0830. Patient is on bipap at night, she reports that she readjusted her mask and went to sleep. At 0915, patient reports another episode of SOB alongside a "cold tingling" feeling in her chest which radiated to her shoulders. Cold sweats are also reported. Patient reports PMHx of [place] and panic attack. She took .5 mg of alprazolam SL, felt a little bit better temporarily, but Sx resumed. Patient took 1 nitro with no relief, decided to come to ED. In room, she states she is experiencing throat tightness and nausea. SOB and "cold tingling" are noted to come and go, patient states she is not having these Sx in the room. Hx of stents, bypass surgery is denied. She reports blockage in one artery, but not enough for stent. Patient's stone mason is Dr. Best, last seen a couple of months ago for routine check- up. She denies pain, swelling in legs. Patient does note recent left leg surgery performed by Dr. Hernandes. Fever, chills, erythema at eyes, sore throat, cough, abdominal pain, vomiting, dysuria, hematuria, myalgia, edema, rash and dizziness are not reported. On triage, pain is rated 3/10, nothing is noted to aggravate/alleviate Sx. Home medications and allergies are reviewed. - History of Current Complaint Chief Complaint: EDChestPainROMI Time Seen by Provider: 04/25/18 12:33 Hx Obtained From: Patient Onset/Duration: Started Hours Ago - onset 0830, Still Present - nause, throat tightness, Resolved - patient reports no SOB or chest "cold tingling" in room Timing: Intermittent Initial Severity: Mild - 3/10 Current Severity: None - chest Sx resolved, only notes nausea and throat tightness in room Pain Intensity: 0 Pain Scale Used: 0-10 Numeric - 0/10 Chest Pain Location: Diffuse Chest Pain Radiates: Yes Chest Pain Radiates To:: Shoulder - bilateral Character: Other: - "cold tingling" Aggravating Factor(s): Nothing Alleviating Factor(s): Nothing Associated Signs and Symptoms: Positive: Chest Pain - "cold tingling", Tingling - "cold tingling" in chest, Shortness of Breath, Diaphoresis, Nausea, Other: - POSITIVE - THROAT TIGHTNESS; NEGATIVE - ERYTHEMA OF EYES, SORE THROAT, DYSURIA, HEMATURIA, MYALGIA, RASH. Negative: Dizziness, Swelling, Fever, Chills, Cough, Productive Cough, Nonproductive Cough, Abdominal Pain, Calf Pain/Swelling, Vomiting, Edema - Additional Pertinent History Primary Care Physician: MIKHAIL - Allergy/Home Medications Allergies/Adverse Reactions: Allergies Allergy/AdvReac Type Severity Reaction Status Date / Time nickel Allergy Intermediate Blisters Verified 04/25/18 12:31 Sulfa (Sulfonamide Allergy Intermediate muscle Verified 04/25/18 12:31 Antibiotics) spasms Home Medications: Home Medications Escitalopram (NF) [Lexapro 20 mg (NF)] 20 mg PO QAM 04/25/18 [History Confirmed 04/25/18] Milk Thistle 500 mg PO BEDTIME 04/25/18 [History Confirmed 04/25/18] [place]-3 Fatty Acids (Nf) [Fish Oil (NF)] 1,200 mg PO DAILY 04/25/18 [History Confirmed 04/25/18] Vitamin B Complex TAB* [B Complex-50*] 1 tab PO QAM 04/25/18 [History Confirmed 04/25/18] PMH/Surg Hx/FS Hx/Imm Hx Endocrine/Hematology History: Denies: Hx Diabetes Cardiovascular History: Reports: Hx Angina, Hx Hypertension - When was drinking , stopped drinking BP down, Hx Myocardial Infarction, Other Cardiovascular Problems/Disorders - DID A CARDIAC CATH NO STENTS Denies: Hx Coronary Artery Disease, Hx Hypercholesterolemia, Hx Pacemaker/ICD Respiratory History: Reports: Hx Seasonal Allergies, Hx Sleep Apnea, Other Respiratory Problems/Disorders - INTERSTITIAL LUNG DISEASE GI History: Reports: Hx Gastroesophageal Reflux Disease - diet controlled, Hx Irritable Bowel - under control, Hx Ulcer - healed at this time, Other GI Disorders - ulcer History: Reports: Other Problems/Disorders - urethra stretched Denies: Hx Renal Disease Musculoskeletal History: Reports: Hx Arthritis - lower back Denies: Other Musculoskeletal History Sensory History: Reports: Hx Contacts or Glasses Denies: Hx Hearing Aid Opthamlomology History: Reports: Hx Contacts or Glasses Neurological History: Denies: Other Neuro Impairments/Disorders Psychiatric History: Reports: Hx Anxiety, Hx Depression Denies: Hx Panic Disorder - Cancer History Hx Chemotherapy: No Hx Radiation Therapy: No - Surgical History Surgery Procedure, Year, and Place: appendectomy. hysterectomy, x2. oophorectomy. pilonidal cyst ,removed ganglion cyst. tonsillectomy and adenoidectomy 5 years ald Hx Anesthesia Reactions: Yes - after appy had mod itching- no issues with other surgeries-was given benedr - Immunization History Date of Tetanus Vaccine: unknown Date of Influenza Vaccine: unknown Infectious Disease History: No Infectious Disease History: Denies: History Other Infectious Disease, Traveled Outside the [place] in Last 30 Days - Family History Known Family History: Positive: Other - Positive breast CA to aunt - Social History Alcohol Use: None Alcohol Amount: 5 DRINKS Hx Substance Use: No Substance Use Type: Reports: None Substance Use Comment - Amount & Last Used: age 18 Hx Tobacco Use: Yes Smoking Status (MU): Former Smoker Amount Used/How Often: smoked 35 yrs, 1 ppd Review of Systems Negative: Fever, Chills Negative: Erythema Positive: Other - POSITIVE - THROAT TIGHTNESS . Negative: Sore Throat Positive: Chest Pain - "COLD TINGLING" WITH RADIATION TO SHOULDERS Positive: Shortness Of Breath. Negative: Cough Positive: Nausea. Negative: Abdominal Pain, Vomiting Negative: dysuria, hematuria Positive: Other - NEGATIVE - CALF PAIN . Negative: Myalgia, Edema Negative: Rash Neurological: Other - NEGATIVE - DIZZINESS All Other Systems Reviewed And Are Negative: Yes Physical Exam - Summary Physical Exam Summary: Constitutional: Well-developed, Well-nourished, Alert. (-) Distressed Skin: Warm, Dry HENT: Normocephalic; Atraumatic Eyes: Conjunctiva normal Neck: Musculoskeletal ROM normal neck. (-) JVD, (-) Stridor, (-) Tracheal deviation Cardio: Rhythm regular, rate normal, Heart sounds normal; Intact distal pulses; The pedal pulses are 2+ and symmetric. Radial pulses are 2+ and symmetric. (-) Murmur Pulmonary/Chest wall: Effort normal. (-) Respiratory distress, (-) Wheezes, (-) Rales Abd: Soft, (-) epigastric tenderness, (-) Distension, (-) Guarding, (-) Rebound Musculoskeletal: (-) Edema Lymph: (-) Cervical adenopathy Neuro: Alert, Oriented x3 Psych: Mood and affect Normal Triage Information Reviewed: Yes Vital Signs On Initial Exam: Initial Vitals Temp Pulse Resp BP Pulse Ox 96.9 F 92 20 152/90 97 04/25/18 12:29 04/25/18 12:29 04/25/18 12:29 04/25/18 12:29 04/25/18 12:29 Vital Signs Reviewed: Yes Diagnostics - Vital Signs Vital Signs Temp Pulse Resp BP Pulse Ox 04/25/18 12:29 96.9 F 92 20 152/90 97 - Laboratory Result Diagrams: 04/25/18 12:56 04/25/18 12:56 Lab Statement: Any lab studies that have been ordered have been reviewed, and results considered in the medical decision making process. - Radiology CXR Radiology Interpretation Completed By: Radiologist Summary of Radiographic Findings: CXR IMPRESSION: NO ACTIVE CARDIOPULMONARY DISEASE. THIS REPORT WAS REVIEWED BY ED PHYSICIAN. - EKG 1230 Cardiac Rate: NL - RATE OF 79 BPM EKG Rhythm: Sinus Rhythm Summary of EKG Findings: FIRST EKG SHOWS SINUS SHYTHM WITH RATE OF 79 BPM, T- WAVE INVERSION IN V2, V3, NO STEMI. 1510 Cardiac Rate: Bradycardia - RATE OF 59 BPM EKG Rhythm: Sinus Bradycardia Summary of EKG Findings: SECOND EKG SHOWED SINUS BRADYCARDIA WITH RATE OF 59 BPM , T-WAVE INVERSION V1,V2,V3. NO STEMI. Re-Evaluation - Re-Evaluation First Eval Re-Evaluation Time: 13:37 Change: Improved Comment: 1337 - Patient reports that she would prefer to be worked up as outpatient. Patient is not experiencing Sx at this point. Second Eval Re-Evaluation Time: 13:50 Change: Unchanged Comment: [facility] consult was discussed, patient agreeable with follow up with [facility] as outpatient if second trop is negative. Third Eval Re-Evaluation Time: 16:15 Change: Worse Comment: Patient reports that she is experiencing indigestion and throat discomfort with radiation to chest. As Sx have resumed, patient is agreeable with admission at this point. Chest Pain Course/Dx - Course Course Of Treatment: Patient is a 52 y/o F w/ c/o SOB and "cold tingling" in her chest with radiation to shoulders. She states that she had an episode of SOB which awoke her from her sleep today at 0830. Patient is on bipap at night, she reports that she readjusted her mask and went to sleep. At 0915, patient reports another episode of SOB alongside a "cold tingling" feeling in her chest which radiated to her shoulders. Cold sweats are also reported. Patient reports PMHx of [place] and panic attack. She took .5 mg of alprazolam SL, felt a little bit better temporarily, but Sx resumed. Patient took 1 nitro with no relief, decided to come to ED. In room, she states she is experiencing throat tightness and nausea. SOB and "cold tingling" are noted to come and go, patient states she is not having these Sx in the room. Hx of stents, bypass surgery is denied. She reports blockage in one artery, but not enough for stent. Patient's stone mason is Dr. Best, last seen a couple of months ago for routine check- up. She denies pain, swelling in legs. Patient does note recent left leg surgery performed by Dr. Hernandes. Physical exam is unremarkable. During ED course, patient received ASA 324 mg, Xanax 0.5 mg. Labs showed first trop negative, second trop negative. Glucose 167, BUN/creatinine 26.3, D-dimer <200, baso% 2.1, eos% 1.3, lymph% 24.8. FIRST EKG SHOWS SINUS SHYTHM WITH RATE OF 79 BPM, T-WAVE INVERSION IN V2, V3, NO STEMI. SECOND EKG SHOWED SINUS BRADYCARDIA WITH RATE OF 59 BPM, T-WAVE INVERSION V1,V2,V3. NO STEMI. CXR IMPRESSION: NO ACTIVE CARDIOPULMONARY DISEASE. 1337 - Patient reports that she would prefer to be worked up as outpatient. Patient is not experiencing Sx at this point. 1335 - Patient's case discussed with Dr. Alvarez, it is recommended that Dr. Best be contacted. 1346 - Dr. Best states that as atypical chest pain has resolved, patient can be discharged and set up appointment with her in three days if second trop is negative. 1615 - Patient reports that she is experiencing indigestion and throat discomfort with radiation to chest. As Sx have resumed, patient is agreeable with admission at this point. 1622 - Patient 's Sx discussed with Dr. Alvarez once more, Dr. Alvarez accepts for admission. Dx of unspecified chest pain. - Diagnoses Provider Diagnoses: Chest pain, unspecified - Provider Notifications Discussed Care Of Patient With: Nelly Alvarez Time Discussed With Above Provider: 13:35 Instructed by Provider To: Other - 1335 - Patient's case discussed with Dr. Alvarez , it is recommended that Dr. Best be contacted. 1346 - Dr. Best states that as atypical chest pain has resolved, patient can be discharged and set up appointment with her in three days if second trop is negative. 1622 - Patient's Sx discussed with Dr. Alvarez once more, Dr. Alvarez accepts for admission. Discharge - Sign-Out/Discharge Documenting (check all that apply): Patient Departure - admit - Discharge Plan Condition: Good Disposition: ADMITTED TO [facility] Referrals: Jacqui Joseph MD [Primary Care Provider] - - Attestation Statements Document Initiated by Scribe: Yes Documenting Scribe: NE MULLINS Provider For Whom Scribe is Documenting (Include Credential): MARILYNN COE MD Scribe Attestation: NE Mon , scribed for MARILYNN COE MD on 04/25/18 at 1818.
--- OUTSIDE RECORDS SUMMARY | 2018-04-25 12:53 | XMS REPORT ---
:1965 External Reference #:[id number] Author Organization [facility] Address [address] [place] [address] Phone [phone] Care Team Providers Name Role Phone Jacqui Joseph M.D. 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 Primary Care Physician Unavailable Payers Type Date Identification Numbers Payment Provider Subscriber Medicaid Effective: Policy Number: [id number] [facility] Maral Lieberman 2013 PayID: [id number] [address] [address] [place] [address] Problems Date Description Provider Status Onset: 04/30/2011 Generalized anxiety disorder Neeru Patel M.D. Active Onset: 05/08/2011 Depressive disorder Neeru Patel M.D. Active Onset: 10/30/2012 Vitamin D deficiency Neeru Patel M.D. Active Onset: 10/30/2012 Lichen Neeru Patel M.D. Active Onset: 09/14/2015 Moderate recurrent major depression Werner Bolivar M.D. Active Onset: 09/14/2015 Chronic alcoholism in remission Werner Bolivar M.D. Active Onset: 09/14/2015 Impaired fasting glycaemia Werner Bolivar M.D. Active Onset: 09/14/2015 Coronary arteriosclerosis Jacqui Joseph M.D. Active Onset: 09/14/2015 Obstructive sleep apnea syndrome Jacqui Joseph M.D. Active Onset: 09/14/2015 Bronchiolitis obliterans organizing Jacqui Joseph M.D. Active pneumonia Note: 2/2 aspiration PNA alcohol Onset: 09/14/2015 Morbid obesity Jacqui Joseph M.D. Active Onset: 07/14/2016 Essential hypertension Jacqui Joseph M.D. Active Onset: 06/18/2017 Obesity Jacqui Joseph M.D. Active Onset: 07/10/2011 Hand joint pain Neeru Patel M.D. Inactive Inactive: 09/14/2015 Onset: 12/03/2011 Lesion of ulnar nerve Chema Suarez M.D. Inactive Inactive: 09/14/2015 Onset: 06/17/2014 Continuous chronic alcoholism Neeru Patel M.D. Inactive Inactive: 09/14/2015 Onset: 07/26/2014 Chronic pain syndrome Neeru Patel M.D. Inactive Inactive: 09/14/2015 Onset: 07/26/2014 Paroxysmal supraventricular Neeru Patel M.D. Inactive tachycardia Inactive: 09/14/2015 Family History Date Family Member(s) Problem(s) Comments General No lung or colon CA. Maternal grandmother of burst aortic aneurysm. Father due to Unknown Causes () Father Diabetes Mellitus, II Father mostly unknown. DM, throat cancer. smoker. drinker. Mother Alcoholism Mother Arthritis Mother Abusive to patient growing up. First Daughter Bipolar Disorder First Daughter Layne. Second Daughter Luann, Number of Siblings 1 brother, 1 sister. healthy. First Brother Skin Cancer First Brother [place] with his . healthy. etoh. First Sister Juan. [place] near mom, healthy. Maternal Aunts Breast CA. Social History Type Date Description Comments Education Some college. Marital Status Patient is Living Situation Patient lives alone Diet Patient is on a cardiac diet Cigarette Use Former Cigarette Smoker Got depressed when tried to quit in 2010. Stopped again 01/26/2014. ETOH Use Has consumed alcohol in the finished detox when past 09/26/2014. AA in past, SOBER Smoking Patient is a former smoker Exercise Type/Frequency Does not exercise Current Allergies, Adverse Reactions, Alerts Date Description Reaction Status Severity Comments 09/06/2010 Sulfa muscle spasms active Medications Medication Date Status Form Strength Qnty SIG Indications Ordering Provider Cyclobenzaprine 03/26/ Active Tablets 5mg 30tabs 1/2-1 M54.5 Jacqui HCL 2018 tablet [place], every M.D. night at bedtime as needed True Metrix Meter 12/10/ Active Kit W/Device 1units test R73.09 Jacqui 2018 three [place], times a M.D. day - Dx-R73.09 - last seen 11/22/17 True Metrix Blood 12/10/ Active Strips 100uni test bs Jacqui Glucosetest Strips 2017 ts tid - [place], Dx: M.D. R73.09 - last seen 11/22/17 Lancets Thin 12/10/ Active Misc 100uni tid Jacqui 2018 ts testing - [place], Dx: Rupert.Joby. 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 Oxalate tablet by Paul, mouth every SHEET METAL ROOFER day Alprazolam 06/18/2013 Active Tablets 0.5mg 60tabs 1/2-1 by F41.1 Maria Fernanda C. mouth twice Paul, a day as SHEET METAL ROOFER needed Ventolin HFA 12/26/2012 Active Aerosol 108(9 18units Inhale 2 J17 Jacqui 0Base Doses Into [place], ) The Lungs M.D. mcg/A Four Times A ct Day as Needed Toprol XL Active Tablets 50mg 1 po qam Unknown Womens Multi Active Capsules qd Unknown Fish Oil Active Capsules 1000m once daily Unknown Concentrate g Breo Ellipta Active Aerosol 200-2 1 puff daily Unknown 5mcg/ Inh Nitrofurantoin 11/22/2017 Hx Capsules 100mg 10caps take one by R35.0 Maria Fernanda C. Monohyd Macro - mouth twice Paul, 03/26/2018 daily for 5 SHEET METAL ROOFER days. Phenazopyridine 11/22/2017 Hx Tablets 200mg 6tabs take one by R35.0 Maria Fernanda C. HCL - mouth 3 Paul, 03/26/2018 times daily SHEET METAL ROOFER as needed for pain Meclizine HCL 12/21/2016 Hx Tablets 25mg 30tabs 1 tab three Jacqui - times a day [facility]3] 06/17/2017 as needed M.D. Onetouch Delica 07/25/2016 Hx Misc 100unit Test Fasting Jacqui Gonsales Extra Fine - s Blood Sugar [place], 33G 12/10/2017 In Morning M.D. Or as Directed Azithromycin 07/14/2016 Hx Tablets 250mg 6tabs 2 tabs J01.90 Jacqui - andra, then [place], 11/09/2016 1 tab daily M.D. 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 Physical Therapy 11/11/2015 Hx evaluate and R20.8 Evelyne - treat EUSEBIO Villarreal 04/30/2016 numbness and tingling in both thighs Cyclobenzaprine 11/11/2015 Hx Tablets 10mg 30tabs 1 by mouth R20.8 Evelyne HCL - at bedtime EUSEBIO Villarreal 04/30/2016 Levofloxacin 05/19/2015 Hx Tablets 500mg 10tabs 1 by mouth J01.90 Werner Bolivar, - every day M.D. 09/15/2015 for 10 days Bupropion HCL ER 03/17/2015 Hx Tablets 300mg 30tabs 1 by mouth F33.1 Werner Bolivar, (XL) - ER 24HR every day M.D. 06/23/2015 Diazepam 03/17/2015 Hx Tablets 2mg 60tabs 1-2 by mouth Werner Bolivar, - twice a day M.D. 05/19/2015 as needed Metaxalone 03/17/2015 Hx Tablets 800mg 60tabs 1 by mouth M79.1 Werner Bolivar, - 3-4 times M.D. 09/15/2015 every day as needed Bupropion HCL ER 02/10/2015 Hx Tablets 150mg 1 by mouth 300.02 Werner Bolivar, (SR) - ER 12HR every day M.D. 02/10/2015 Bupropion HCL ER 02/10/2015 Hx Tablets 150mg 30tabs 1 by mouth F41.1 Werner Bolivar (XL) - ER 24HR every day M.D. 03/17/2015 Work Note 02/10/2015 Hx Please 311 Werner Bolivar, - excuse M.D. 03/17/201502/02-02/21/15 . May return to work on 02/22/15 Bupropion HCL 02/02/2015 Hx Tablets 100mg 60tabs 1 by mouth 300.02 Yola - daily, after [place], 02/10/2015 1 week if POWDER WORKER tolerable increase to 1 by mouth twice a day Omeprazole 01/13/2015 Hx Capsules 40mg 90caps 1 by mouth Jacqui Bello DR every day [place], 09/15/2015 M.D. Metformin HCL 01/13/2015 Hx Tablets 500mg 60tabs 1 by mouth R73.01 Werner Bolivar, - twice a day M.D. 09/15/2015 Onetouch Verio 01/05/2015 Hx Kit W/Dev 1units as directed Werner Bolivar, - ice M.D. 12/10/2017 Oneuch Delica 01/05/2015 Hx Misc 30G 1box test fasting Jacqui Dewitt 30G - blood sugar [place], 07/25/2016 in the in M.D. the morning or as directed, dx 250.00 [facility] Hx Strips 100unit Use To Test Jacqui kasper Three Times [place], 12/10/2017 A Day M.D. Celecoxib 11/30/2014 Hx Capsules 200mg 30caps 1 by mouth 729.1 Werner Bolivar, - every day M.D. 01/13/2015 Bumetanide 11/19/2014 Hx Tablets 0.5mg 60tabs 1-2 by mouth Neeru Wilson - daily Amanda, 11/30/2014 M.D. Spironolactone 11/13/2014 Hx Tablets 25mg 90tabs 1 by mouth 782.3 Werner Bolivar, - three times M.D. 11/30/2014 a day as needed Furosemide 11/04/2014 Hx Tablets 20mg 20tabs 1 po every 782.3 Sadaf - day Lyubov, 11/13/2014 Afnp-C Note 11/04/2014 Hx was seen in 782.3 Sadaf - this office Lyubov, 11/07/2014 today for Afnp-C follow up Diazepam 10/15/2014 Hx Tablets 5mg 1/2 tablet Evelyne - by mouth at EUSEBIO Villarreal 03/17/2015 bedtime and taper off as directed Hydrochlorothiazid 10/15/2014 Hx Tablets 25mg 30tabs 1/2 - 1 by 782.3 Evelyne e - mouth daily EUSEBIO Villarreal 11/04/2014 as needed for fluid retention Diazepam 09/27/2014 Hx Tablets 10mg 120tabs 1 po qid Neeru Wilson - Amanda, 10/15/2014 M.D. Centrum 07/26/2014 Hx 1 po daily Neeru Wilson Multivitamins - Amanda, 09/15/2015 M.D. Escitalopram 08/15/2013 Hx Tablets 10mg 45tabs take 1+1/2 311 Neeru Wilson Oxalate - tablets by Amanda, 01/13/2015 mouth once M.D. daily current bottle was not returned to her from her detox center in [place]. Cipro 07/28/2013 Hx Tablets 250mg 14tabs 1 po bid x 7 599.0 Werner Bolivar, - days M.D. 07/30/2013 Pyridium 07/28/2013 Hx Tablets 100mg 6tabs 1 by mouth 599.0 Werner Bolivar, - three times M.D. 07/30/2013 a day Tramadol HCL 07/18/2013 Hx Tablets 50mg 90tabs 1-2 by mouth Werner Bolivar, - every 6 M.D. 09/15/2015 hours as needed pain Gabapentin 07/18/2013 Hx Capsules 300mg 90caps 1 po tid 786.50 Neeru Wilson - Amanda, 09/03/2013 M.D. Prednisone 12/26/2012 Hx Tablets 10mg 21tabs 2 bid x 3 517.1 Neeru Wilson - days, then 1 Amanda, 07/11/2013 bid x 3 M.D. days, then 1 qd x3 days, then 1 qod until gone Escitalopram 12/26/2012 Hx Tablets 20mg 30tabs 1 po qd 311 Neeru Wilson Oxalate - Amanda, 08/15/2013 M.D. Benzonatate 11/26/2012 Hx Capsules 200mg 30caps 1 po tid prn 466.0 Sadaf - for cough Lyubov, 12/06/2012 Afnp-C Azithromycin 11/26/2012 Hx Tablets 500mg 5tabs 1 po qd x 5 466.0 Sadaf - Lyubov, 12/01/2012 Afnp-C Ondansetron HCL 11/05/2012 Hx Tablets 4mg 10tabs 1 po q 4 hrs 787.02 Evelyne Villarreal, EUSEBIO 12/26/2012 Escitalopram 10/30/2012 Hx Tablets 10mg 45tabs 1 1/2 po qd 311 Neeru MaMaya Oxalate - Amanda, 12/26/2012 M.DMaya Escitalopram 04/27/2012 Hx Tablets 10mg 45tabs 1 and 1/2 Neeru LMaya Oxalate - po qd Amanda, 12/26/2012 M.DMaya Tobi Contour 09/10/2011 Hx 100unit take blood Neeru Wilson Blood Glucose Test - s sugar qd or Amanda, Strips 01/05/2015 as directed M.D. Tobi Contour 09/10/2011 Hx 100unit take blood Neeru L. Lancets - s sugar qd or Amanda, 01/05/2015 as directed M.D. Lexapro 07/10/2011 Hx Tablets 10mg 135tabs Take One And 311 Neeru L. - One-half Amanda, 10/30/2012 each day. M.Joby. Chivo medically necessary Lexapro 03/06/2011 Hx Tablets 10mg 135tabs 1 and 1/2 311 Neeru L. - po qd Amanda, 05/08/2011 M.Joby. Lexapro 02/06/2011 Hx Tablets 10mg 30tabs 1 po qd 311 Neeru L. - Amanda, 07/10/2011 M.Deysi Alprazolam 02/06/2011 Hx Tablets 0.25m 30tabs 1 po bid 300.02 Neeru L. - g Amanda, 06/18/2013 M.DMaya Clonazepam 12/08/2010 Hx Tablets 0.5mg 60tabs 1/2 to 1 300.02 Neeru LMaya - pill po bid Amanda, 02/06/2011 M.DMaya Lexapro 12/08/2010 Hx Tablets 10mg 30tabs 1 po qd Neeru L. - Amanda, 02/06/2011 M.DMaya Xanax Hx Tablets 0.25m 45tabs prn Unknown - g 02/06/2011 Ibuprofen Hx Tablets 800mg take 1 Unknown - tablet po 12/26/2012 tid prn pain Ondansetron Odt Hx Tablets 4mg 1 po q Unknown - Dispers 6-8hrs prn 12/26/2012 nausea Omeprazole Hx Capsules 20mg 90caps 1 by mouth Carrie Bello DR every day [place], 01/13/2015 Afnp-C Prilosec Hx Capsules 20mg 1 by mouth Perez - every day 04/30/2016 Crestor Hx Tablets 5mg 1 tab MWF Unknown - 10/16/2017 Medications Administered in Office Medication Date Status Form Strength Qnty SIG Indications Ordering Provider TB Intradermal Administered Injection Unknown Test 015 TB Intradermal Administered Injection Kierra Test 013 TJ Sepulveda Immunizations CPT Code Status Date Vaccine Lot # [id number] Given 08/04/2016 MMR Virus Immunization [id number] Given 06/30/2016 MMR Virus Immunization [id number] Vital Signs Date Vital Result Comment 03/26/2018 BP Systolic 110 mmHg BP Diastolic 78 mmHg Heart Rate 68 /min Body Temperature 97.5 F Respiratory Rate 16 /min Height 68 inches 5'8" Weight 305.00 lb BMI (Body Mass Index) 46.4 kg/m2 02/24/2018 BP Systolic 104 mmHg BP Diastolic 82 mmHg Heart Rate 78 /min Body Temperature 97.3 F Height 67.50 inches 5'7.50" Weight 304.00 lb BMI (Body Mass Index) 46.9 kg/m2 11/22/2017 BP Systolic 120 mmHg BP Diastolic 80 mmHg Heart Rate 84 /min Body Temperature 97.8 F Respiratory Rate 16 /min Height 67.50 inches 5'7.50" Weight 302.00 lb BMI (Body Mass Index) 46.6 kg/m2 10/16/2017 BP Systolic 110 mmHg BP Diastolic 68 mmHg Heart Rate 68 /min Body Temperature 97.9 F Height 67.50 inches 5'7.50" Weight 298.00 lb BMI (Body Mass Index) 46.0 kg/m2 06/25/2017 BP Systolic 120 mmHg BP Diastolic 70 mmHg Heart Rate 74 /min Body Temperature 97.8 F Respiratory Rate 16 /min Height 67.50 inches 5'7.50" 06/18/2017 BP Systolic 130 mmHg BP Diastolic 80 mmHg Heart Rate 84 /min Body Temperature 97.9 F Height 67.50 inches 5'7.50" Weight 302.25 lb BMI (Body Mass Index) 46.6 kg/m2 02/13/2017 BP Systolic 120 mmHg BP Diastolic 70 mmHg Heart Rate 80 /min Body Temperature 97.9 F Respiratory Rate 18 /min Height 67.50 inches 5'7.50" Weight 297.00 lb BMI (Body Mass Index) 45.8 kg/m2 12/21/2016 BP Systolic 110 mmHg BP Diastolic 64 mmHg Heart Rate 80 /min Body Temperature 97.9 F Respiratory Rate 18 /min Height 67.50 inches 5'7.50" Weight 293.00 lb BMI (Body Mass Index) 45.2 kg/m2 11/22/2016 BP Systolic 134 mmHg BP Diastolic 78 mmHg Heart Rate 84 /min Body Temperature 98.0 F Respiratory Rate 18 /min Height 67.50 inches 5'7.50" Weight 295.00 lb BMI (Body Mass Index) 45.5 kg/m2 11/09/2016 BP Systolic 132 mmHg BP Diastolic 84 mmHg Heart Rate 84 /min Body Temperature 98.1 F Respiratory Rate 20 /min Height 67.50 inches 5'7.50" Weight 295.00 lb BMI (Body Mass Index) 45.5 kg/m2 07/14/2016 BP Systolic 132 mmHg BP Diastolic 84 mmHg Heart Rate 84 /min Body Temperature 98.6 F Respiratory Rate 20 /min Height 67.50 inches 5'7.50" Weight 280.00 lb BMI (Body Mass Index) 43.2 kg/m2 06/30/2016 BP Systolic 132 mmHg BP Diastolic 80 mmHg Heart Rate 84 /min Body Temperature 98.0 F Respiratory Rate 20 /min Height 67.50 inches 5'7.50" Weight 280.00 lb BMI (Body Mass Index) 43.2 kg/m2 04/30/2016 BP Systolic 122 mmHg BP Diastolic 80 mmHg Heart Rate 76 /min Body Temperature 97.8 F Respiratory Rate 20 /min O2 % BldC Oximetry 96 % Height 67.50 inches 5'7.50" Weight 280.12 lb BMI (Body Mass Index) 43.2 kg/m2 11/17/2015 BP Systolic 118 mmHg BP Diastolic 72 mmHg Heart Rate 72 /min Body Temperature 97.8 F Height 67.50 inches 5'7.50" 11/11/2015 BP Systolic 110 mmHg BP Diastolic 74 mmHg Heart Rate 76 /min Body Temperature 98.4 F Respiratory Rate 16 /min Height 67.50 inches 5'7.50" Weight 275.00 lb BMI (Body Mass Index) 42.4 kg/m2 09/15/2015 BP Systolic 118 mmHg BP Diastolic 68 mmHg Heart Rate 72 /min Body Temperature 98.6 F Respiratory Rate 16 /min Height 67.50 inches 5'7.50" Weight 277.00 lb BMI (Body Mass Index) 42.7 kg/m2 06/23/2015 BP Systolic 110 mmHg BP Diastolic 76 mmHg Heart Rate 72 /min Body Temperature 98.1 F Respiratory Rate 18 /min Height 67.50 inches 5'7.50" Weight 270.00 lb BMI (Body Mass Index) 41.7 kg/m2 05/19/2015 BP Systolic 118 mmHg BP Diastolic 80 mmHg Heart Rate 84 /min Body Temperature 97.9 F Respiratory Rate 16 /min Height 67.50 inches 5'7.50" Weight 270.12 lb BMI (Body Mass Index) 41.7 kg/m2 03/17/2015 BP Systolic 118 mmHg BP Diastolic 62 mmHg Heart Rate 68 /min Body Temperature 97.8 F Height 67.50 inches 5'7.50" Weight 263.00 lb BMI (Body Mass Index) 40.6 kg/m2 02/10/2015 BP Systolic 118 mmHg BP Diastolic 60 mmHg Heart Rate 80 /min Body Temperature 98.2 F Respiratory Rate 16 /min Height 67.50 inches 5'7.50" 02/02/2015 BP Systolic 110 mmHg BP Diastolic 74 mmHg Heart Rate 72 /min Body Temperature 98.0 F Respiratory Rate 16 /min Height 67.50 inches 5'7.50" Weight 262.00 lb BMI (Body Mass Index) 40.4 kg/m2 01/13/2015 BP Systolic 116 mmHg BP Diastolic 76 mmHg Heart Rate 78 /min Body Temperature 98.9 F Respiratory Rate 16 /min Height 67.50 inches 5'7.50" Weight 257.12 lb BMI (Body Mass Index) 39.7 kg/m2 12/14/2014 BP Systolic 118 mmHg BP Diastolic 74 mmHg Heart Rate 84 /min Body Temperature 98.6 F Respiratory Rate 18 /min Height 67.50 inches 5'7.50" Weight 263.00 lb BMI (Body Mass Index) 40.6 kg/m2 11/30/2014 BP Systolic 110 mmHg BP Diastolic 70 mmHg Heart Rate 76 /min Body Temperature 98.9 F Respiratory Rate 18 /min Height 67.50 inches 5'7.50" Weight 259.00 lb BMI (Body Mass Index) 40.0 kg/m2 11/15/2014 BP Systolic 128 mmHg BP Diastolic 70 mmHg Heart Rate 84 /min Body Temperature 99.1 F Respiratory Rate 16 /min Height 67.50 inches 5'7.50" Weight 250.50 lb BMI (Body Mass Index) 38.7 kg/m2 11/13/2014 BP Systolic 120 mmHg BP Diastolic 68 mmHg Heart Rate 76 /min Body Temperature 97.5 F Respiratory Rate 16 /min Height 67.50 inches 5'7.50" Weight 254.00 lb BMI (Body Mass Index) 39.2 kg/m2 11/04/2014 BP Systolic 124 mmHg BP Diastolic 70 mmHg Heart Rate 84 /min Body Temperature 98.2 F Respiratory Rate 18 /min Height 67.50 inches 5'7.50" Weight 248.00 lb BMI (Body Mass Index) 38.3 kg/m2 10/15/2014 BP Systolic 124 mmHg BP Diastolic 70 mmHg Heart Rate 76 /min Body Temperature 99.0 F Respiratory Rate 16 /min Height 67.50 inches 5'7.50" Weight 244.38 lb BMI (Body Mass Index) 37.7 kg/m2 09/30/2014 BP Systolic 160 mmHg BP Diastolic 98 mmHg Heart Rate 76 /min Body Temperature 98.6 F Respiratory Rate 18 /min Height 67.50 inches 5'7.50" Weight 239.00 lb BMI (Body Mass Index) 36.9 kg/m2 08/16/2014 BP Systolic 134 mmHg BP Diastolic 84 mmHg Heart Rate 66 /min Body Temperature 97.8 F Respiratory Rate 18 /min Height 67.50 inches 5'7.50" Weight 231.00 lb BMI (Body Mass Index) 35.6 kg/m2 07/26/2014 BP Systolic 168 mmHg BP Diastolic 88 mmHg Heart Rate 90 /min Body Temperature 98.1 F Respiratory Rate 16 /min Height 67.50 inches 5'7.50" Weight 233.25 lb BMI (Body Mass Index) 36.0 kg/m2 06/17/2014 BP Systolic 130 mmHg BP Diastolic 84 mmHg Heart Rate 68 /min Body Temperature 97.2 F Respiratory Rate 20 /min Height 67.50 inches 5'7.50" Weight 228.00 lb BMI (Body Mass Index) 35.2 kg/m2 05/11/2014 BP Systolic 148 mmHg BP Diastolic 98 mmHg Heart Rate 76 /min Body Temperature 98.3 F Respiratory Rate 18 /min Height 67.50 inches 5'7.50" Weight 227.00 lb BMI (Body Mass Index) 35.0 kg/m2 10/22/2013 BP Systolic 124 mmHg BP Diastolic 80 mmHg Heart Rate 66 /min Body Temperature 98.7 F Respiratory Rate 18 /min Height 67.50 inches 5'7.50" Weight 216.00 lb BMI (Body Mass Index) 33.3 kg/m2 09/04/2013 BP Systolic 126 mmHg BP Diastolic 82 mmHg Heart Rate 90 /min Body Temperature 97.6 F Height 67.50 inches 5'7.50" Weight 212.12 lb BMI (Body Mass Index) 32.7 kg/m2 07/30/2013 BP Systolic 130 mmHg BP Diastolic 80 mmHg Heart Rate 68 /min Body Temperature 97.5 F Respiratory Rate 18 /min Height 67.50 inches 5'7.50" Weight 211.00 lb BMI (Body Mass Index) 32.6 kg/m2 07/28/2013 BP Systolic 136 mmHg BP Diastolic 80 mmHg Heart Rate 76 /min Body Temperature 98.2 F Respiratory Rate 18 /min Height 68.25 inches 5'8.25" Weight 212.00 lb BMI (Body Mass Index) 32.0 kg/m2 07/18/2013 BP Systolic 138 mmHg BP Diastolic 80 mmHg Heart Rate 60 /min Body Temperature 98.7 F Respiratory Rate 18 /min O2 % BldC Oximetry 98 % Height 68.25 inches 5'8.25" Weight 215.25 lb BMI (Body Mass Index) 32.5 kg/m2 07/17/2013 BP Systolic 138 mmHg BP Diastolic 84 mmHg Heart Rate 71 /min Body Temperature 98.0 F O2 % BldC Oximetry 99 % Height 68.25 inches 5'8.25" Weight 215.25 lb BMI (Body Mass Index) 32.5 kg/m2 07/11/2013 BP Systolic 116 mmHg BP Diastolic 80 mmHg Heart Rate 78 /min Body Temperature 97.9 F Respiratory Rate 16 /min Height 68.25 inches 5'8.25" Weight 215.50 lb BMI (Body Mass Index) 32.5 kg/m2 02/25/2013 BP Systolic 130 mmHg BP Diastolic 90 mmHg Heart Rate 72 /min Body Temperature 98.1 F Respiratory Rate 16 /min Height 68.25 inches 5'8.25" Weight 210.00 lb BMI (Body Mass Index) 31.7 kg/m2 12/26/2012 BP Systolic 130 mmHg BP Diastolic 90 mmHg Heart Rate 72 /min Body Temperature 97.1 F Respiratory Rate 16 /min O2 % BldC Oximetry 9697 % Height 68.25 inches 5'8.25" Weight 210.00 lb BMI (Body Mass Index) 31.7 kg/m2 11/26/2012 BP Systolic 120 mmHg BP Diastolic 80 mmHg Heart Rate 68 /min Body Temperature 98.6 F Respiratory Rate 16 /min O2 % BldC Oximetry 98 % Height 68.25 inches 5'8.25" Weight 213.00 lb BMI (Body Mass Index) 32.1 kg/m2 11/05/2012 BP Systolic 138 mmHg BP Diastolic 78 mmHg Heart Rate 76 /min Body Temperature 98.4 F Respiratory Rate 18 /min Height 68.25 inches 5'8.25" 10/30/2012 BP Systolic 132 mmHg BP Diastolic 92 mmHg Heart Rate 74 /min Body Temperature 97.7 F Respiratory Rate 16 /min Height 68.25 inches 5'8.25" Weight 214.00 lb BMI (Body Mass Index) 32.3 kg/m2 12/03/2011 BP Systolic 110 mmHg BP Diastolic 78 mmHg Heart Rate 72 /min Height 68.25 inches 5'8.25" Weight 221.00 lb BMI (Body Mass Index) 33.4 kg/m2 08/28/2011 BP Systolic 112 mmHg BP Diastolic 82 mmHg Heart Rate 72 /min Body Temperature 98.5 F Height 68.25 inches 5'8.25" Weight 244.00 lb BMI (Body Mass Index) 36.8 kg/m2 07/10/2011 BP Systolic 120 mmHg BP Diastolic 80 mmHg Heart Rate 80 /min Body Temperature 98.3 F Height 68.25 inches 5'8.25" Weight 241.00 lb BMI (Body Mass Index) 36.4 kg/m2 05/08/2011 BP Systolic 128 mmHg BP Diastolic 80 mmHg Heart Rate 76 /min Body Temperature 98.0 F Height 68.25 inches 5'8.25" Weight 238.00 lb BMI (Body Mass Index) 35.9 kg/m2 03/06/2011 BP Systolic 110 mmHg BP Diastolic 70 mmHg Heart Rate 80 /min Body Temperature 98.0 F Height 68.25 inches 5'8.25" Weight 231.00 lb BMI (Body Mass Index) 34.9 kg/m2 02/06/2011 BP Systolic 114 mmHg BP Diastolic 62 mmHg Heart Rate 88 /min Body Temperature 98.1 F Respiratory Rate 20 /min Height 68.25 inches 5'8.25" Weight 244.00 lb BMI (Body Mass Index) 36.8 kg/m2 12/08/2010 BP Systolic 120 mmHg BP Diastolic 70 mmHg Heart Rate 84 /min Body Temperature 98.4 F Respiratory Rate 16 /min Height 68.25 inches 5'8.25" Weight 242.00 lb BMI (Body Mass Index) 36.5 kg/m2 09/06/2010 BP Systolic 126 mmHg BP Diastolic 80 mmHg Heart Rate 72 /min Body Temperature 97.8 F Respiratory Rate 16 /min Height 68.25 inches 5'8.25" Weight 238.00 lb BMI (Body Mass Index) 35.9 kg/m2 Results Test Date Test Result H/L Range Note Laboratory test finding 11/28/2017 Point of Care 125 mg/dL High 70-100 1 Glucose Urine Culture Routine 11/22/2017 Urine Culture, Final report 2, 3 Routine Result 1 No growth 2, 4 Ua - Micro (a) 11/22/2017 Appearance slightly cloudy Color yellow Glucose, Urine (Fma/CMC/CTX) neg Bilirubin neg Ketones trace SP Grav >=1.030 Blood neg PH 5.5 Protein neg Urobil 0.2 Nitrite neg Leukocytes (Fma/CMC/Centrex) neg Hyaline - /Lpf Granular - /Lpf WBC (a,Centrex) 1-2 RBC - Mucus - /Lpf Epith few /Lpf Bacteria trace /Hpf Amorphous small amount /Lpf Crystals, Fluid (Fma/CMC/CTX) - Z#Comments - Laboratory test finding 10/16/2017 Hemoglobin A1c (a) 5.8% % High 4.1- 5.7 HCV AB NEG negative HIV 1&2 Antibody Screen ([facility]) NEG Negative Comprehensive Metabolic Prof 10/16/2017 Sodium 137 mEq/L 134-149 Potassium 3.6 mEq/L 3.6-5.5 Chloride 100 mEq/L 94-112 Carbon Dioxide 25 mEq/L 21-32 Glucose 125 mg/dL High 70-105 5 BUN 10 mg/dL 6-26 Creatinine 0.8 mg/dL 0.6-1.4 BUN/Creat Ratio 12.5 CALC 8.0-36.0 Calcium 9.2 mg/dL 8.6-10.2 Total Protein 6.5 g/dL 6.4-8.3 Albumin 4.4 g/dL 3.8-5.5 Globulin 2.1 g/dL 2.0-4.8 A/G Ratio 2.1 CALC 0.6-2.3 Alk. Phosphatase 70 U/L 30-110 Alt (SGPT) 44 U/L High 7-35 6 Ast (Sgot) 22 U/L 5-34 Total Bilirubin 0.3 mg/dL 0.2-1.3 GFR Non- >60 ml/min/1.73m^ >=60 GFR >60 ml/min/1.73m^ >=60 Comprehensive Metabolic Prof 06/11/2017 Sodium 139 mEq/L 134-149 Potassium 4.3 mEq/L 3.6-5.5 Chloride 103 mEq/L 94-112 Carbon Dioxide 31 mEq/L 21-32 Glucose 138 mg/dL High 70-105 7 BUN 14 mg/dL 6-26 Creatinine 0.8 mg/dL 0.6-1.4 BUN/Creat Ratio 17.5 CALC 8.0-36.0 Calcium 9.8 mg/dL 8.6-10.2 Total Protein 6.9 g/dL 6.4-8.3 Albumin 4.6 g/dL 3.8-5.5 Globulin 2.3 g/dL 2.0-4.8 A/G Ratio 2.0 CALC 0.6-2.3 Alk. Phosphatase 64 U/L 30-110 Alt (SGPT) 47 U/L High 7-35 8 Ast (Sgot) 26 U/L 5-34 Total Bilirubin 0.5 mg/dL 0.2-1.3 GFR Non- >60 ml/min/1.73m^ >=60 GFR >60 ml/min/1.73m^ >=60 Lipid Profile 06/11/2017 Cholesterol 178 mg/dL 120-200 Triglycerides 177 mg/dL 30-200 HDL Cholesterol 46 mg/dL 30-85 LDL (Calculated) 97 CALC 0-129 VLDL Cholesterol 35 mg/dL 0-50 HDL Risk Factor 3.9 CALC 0.0-4.4 Laboratory test finding 06/11/2017 TSH 1.17 mIU/L 0.50-6.00 Complete Blood Count 06/11/2017 WBC 7.5 x10^3/UL 3.6-9.6 RBC 4.70 x10^6/UL 3.90-5.70 HGB 13.7 g/dL 12.1-17.2 HCT 41 % 36-50 MCV 87.0 fL 82.2-97.4 MCH 29.2 pg 27.6-33.3 MCHC 33.4 g/dL 33.0-35.5 RDW 14.9 % High 11.6-13.7 PLT 223 x10^3/UL 150-400 MPV 7.8 fL 7.4-10.4 Gran # 5.3 x10^3/UL 1.5-7.2 Lymph# 1.9 x10^3/UL 0.7-4.9 Burt# 0.3 x10^3/UL 0.1-0.9 Gran % 69.8 % 42.2-75.2 Lymph % 26.0 % 20.5-51.1 Burt% 4.2 % 1.7-9.3 Laboratory test 06/11/2017 Hemoglobin A1c (Fma) 5.9 % % High 4.1-5.7 finding Laboratory test 01/08/2017 Surgical Pathology SEE RESULT BELOW 9 finding CBC Auto Diff 11/15/2016 White Blood Count 10.9 10^3/uL High 3.5-10.8 Red Blood Count 4.73 10^6/uL 4.0-5.4 Hemoglobin 13.4 g/dL 12.0-16.0 Hematocrit 40 % 35-47 Mean Corpuscular Volume 84 fL 80-97 Mean Corpuscular Hemoglobin 28 pg 27-31 Mean Corpuscular HGB Conc 34 g/dL 31-36 Red Cell Distribution Width 14 % 10.5-15 Platelet Count 222 10^3/uL 150-450 Mean Platelet Volume 9 um3 7.4-10.4 Abs Neutrophils 7.4 10^3/uL 1.5-7.7 Abs Lymphocytes 2.7 10^3/uL 1.0-4.8 Abs Monocytes 0.6 10^3/uL 0-0.8 Abs Eosinophils 0.1 10^3/uL 0-0.6 Abs Basophils 0.2 10^3/uL 0-0.2 Abs Nucleated RBC 0.01 10^3/uL Granulocyte % 67.6 % 38-83 Lymphocyte % 24.5 % Low 25-47 Monocyte % 5.2 % 1-9 Eosinophil % 1.0 % 0-6 Basophil % 1.7 % 0-2 Nucleated Red Blood Cells % 0 Laboratory test finding 11/15/2016 Lactic Acid 1.1 mmol/L 0.5-2.0 10 Comp Metabolic Panel 11/15/2016 Sodium 135 mmol/L 133-145 Potassium 4.0 mmol/L 3.5-5.0 Chloride 100 mmol/L Low 101-111 Co2 Carbon Dioxide 27 mmol/L 22-32 Anion Gap 8 mmol/L 2-11 Glucose 115 mg/dL High 70-100 Blood Urea Nitrogen 16 mg/dL 6-24 Creatinine 0.87 mg/dL 0.51-0.95 BUN/Creatinine Ratio 18.4 8-20 Calcium 9.9 mg/dL 8.6-10.3 Total Protein 7.6 g/dL 6.4-8.9 Albumin 4.6 g/dL 3.2-5.2 Globulin 3.0 g/dL 2-4 Albumin/Globulin Ratio 1.5 1-3 Total Bilirubin 0.50 mg/dL 0.2-1.0 Alkaline Phosphatase 57 U/L 34-104 Alt 55 U/L High 7-52 Ast 35 U/L 13-39 Egfr Non- 68.1 >60 Egfr 87.6 >60 11 Laboratory test finding 11/15/2016 Troponin I 0.00 ng/mL <0.04 Lipid Profile 11/09/2016 Cholesterol 194 mg/dL 120-200 Triglycerides 430 mg/dL High 30-200 HDL Cholesterol 35 mg/dL 30-85 LDL (Calculated) 73 CALC 0-129 VLDL Cholesterol 86 mg/dL High 0-50 HDL Risk Factor 5.5 CALC High 0.0-4.4 Complete Blood Count 11/09/2016 WBC 8.3 x10^3/UL 3.6-9.6 RBC 4.49 x10^6/UL 3.90-5.70 HGB 13.3 g/dL 12.1-17.2 HCT 39 % 36-50 MCV 87.0 fL 82.2-97.4 MCH 29.6 pg 27.6-33.3 MCHC 33.9 g/dL 33.0-35.5 RDW 14.7 % High 11.6-13.7 PLT 233 x10^3/UL 150-400 MPV 7.3 fL Low 7.4-10.4 Gran # 5.9 x10^3/UL 1.5-7.2 Lymph# 2.1 x10^3/UL 0.7-4.9 Burt# 0.3 x10^3/UL 0.1-0.9 Gran % 69.6 % 42.2-75.2 Lymph % 26.2 % 20.5-51.1 Burt% 4.2 % 1.7-9.3 Comprehensive Metabolic Prof 11/09/2016 Sodium 136 mEq/L 134-149 Potassium 4.1 mEq/L 3.6-5.5 Chloride 96 mEq/L 94-112 Carbon Dioxide 28 mEq/L 21-32 Glucose 120 mg/dL High 70-105 BUN 13 mg/dL 6-26 Creatinine 0.9 mg/dL 0.6-1.4 BUN/Creat Ratio 14.4 CALC 8.0-36.0 Calcium 9.6 mg/dL 8.6-10.2 Total Protein 7.2 g/dL 6.4-8.3 Albumin 4.3 g/dL 3.8-5.5 Globulin 2.9 g/dL 2.0-4.8 A/G Ratio 1.5 CALC 0.6-2.3 Alk. Phosphatase 64 U/L 30-110 Alt (SGPT) 53 U/L High 7-35 Ast (Sgot) 31 U/L 5-34 Total Bilirubin 0.3 mg/dL 0.2-1.3 GFR Non- >60 ml/min/1.73m^ >=60 GFR >60 ml/min/1.73m^ >=60 Laboratory test finding 11/09/2016 TSH 1.87 mIU/L 0.50-6.00 Free T4 0.97 ng/dL 0.75-1.54 Vitamin B-12 673 pg/mL 230-1050 Folate Level >20.00 ng/mL High 3.00-16.00 LDL, Direct 101 mg/dL 0-130 Rheumatoid Arthritis 11/09/2016 Ra Latex Turbid. <10.0 IU/mL 0.0-13.9 12 Factor ([facility]) Laboratory test 11/09/2016 Antinuclear Negative 12, 13 finding Antibodies, Ifa C-Reactive Protein, Quant 12.4 mg/L High 0.0-4.9 12 Lyme, Western Blot, Serum 11/09/2016 IgG P93 Ab. Absent 12 IgG P66 Ab. Absent 12 IgG P58 Ab. Absent 12 IgG P45 Ab. Absent 12 IgG P41 Ab. Present 12 IgG P39 Ab. Absent 12 IgG P30 Ab. Absent 12 IgG P28 Ab. Absent 12 IgG P23 Ab. Absent 12 IgG P18 Ab. Absent 12 Lyme IgG WB Interp. Negative 12, 14 IgM P41 Ab. Absent 12 IgM P39 Ab. Absent 12 IgM P23 Ab. Absent 12 Lyme IgM WB Interp. Negative 12, 15 Laboratory test finding 11/09/2016 Hemoglobin A1c (Fma) 6.1 % High 4.1- 5.7 Sedimentation Rate 25mm Rapid Influenza A & B 09/22/2016 Influenza A Molecular NEGATIVE Negative 16 Molecular Influenza B Molecular NEGATIVE Negative Laboratory test 09/22/2016 Rapid Influenza A & B SEE RESULT BELOW 17 finding Antigen CBC Auto Diff 05/04/2016 White Blood Count 9.5 10^3/uL 3.5-10.8 Red Blood Count 4.66 10^6/uL 4.0-5.4 Hemoglobin 13.4 g/dL 12.0-16.0 Hematocrit 40 % 35-47 Mean Corpuscular Volume 85 fL 80-97 Mean Corpuscular Hemoglobin 29 pg 27-31 Mean Corpuscular HGB Conc 34 g/dL 31-36 Red Cell Distribution Width 14 % 10.5-15 Platelet Count 190 10^3/uL 150-450 Mean Platelet Volume 9 um3 7.4-10.4 Abs Neutrophils 5.3 10^3/uL 1.5-7.7 Abs Lymphocytes 3.0 10^3/uL 1.0-4.8 Abs Monocytes 0.5 10^3/uL 0-0.8 Abs Eosinophils 0.5 10^3/uL 0-0.6 Abs Basophils 0.1 10^3/uL 0-0.2 Abs Nucleated RBC 0 10^3/uL Granulocyte % 56.3 % 38-83 Lymphocyte % 32.0 % 25-47 Monocyte % 5.2 % 1-9 Eosinophil % 5.4 % 0-6 Basophil % 1.1 % 0-2 Nucleated Red Blood Cells % 0 Laboratory test finding 05/04/2016 Lactic Acid 1.2 mmol/L 0.5-2.0 18 Comp Metabolic Panel 05/04/2016 Sodium 133 mmol/L 133-145 Potassium 3.8 mmol/L 3.5-5.0 Chloride 100 mmol/L Low 101-111 Co2 Carbon Dioxide 26 mmol/L 22-32 Anion Gap 7 mmol/L 2-11 Glucose 141 mg/dL High 70-100 Blood Urea Nitrogen 15 mg/dL 6-24 Creatinine 0.88 mg/dL 0.51-0.95 BUN/Creatinine Ratio 17.0 8-20 Calcium 9.1 mg/dL 8.6-10.3 Total Protein 7.2 g/dL 6.4-8.9 Albumin 4.2 g/dL 3.2-5.2 Globulin 3.0 g/dL 2-4 Albumin/Globulin Ratio 1.4 1-3 Total Bilirubin 0.40 mg/dL 0.2-1.0 Alkaline Phosphatase 52 U/L 34-104 Alt 37 U/L 7-52 Ast 26 U/L 13-39 Egfr Non- 67.5 >60 Egfr 86.8 >60 19 Laboratory test finding 05/04/2016 Magnesium 1.9 mg/dL 1.9-2.7 Lipase 34 U/L 11.0-82.0 C Reactive Protein 11.78 mg/L High < 5.00 20 Laboratory test finding 11/23/2015 Hemoglobin A1c (Fma) 6.0 % High 4.1- 5.7 Comprehensive Metabolic Prof 11/23/2015 Sodium 142 mEq/L 134-149 Potassium 4.3 mEq/L 3.6-5.5 Chloride 102 mEq/L 94-112 Carbon Dioxide 27 mEq/L 21-32 Glucose 124 mg/dL High 70-105 21 BUN 12 mg/dL 6-26 Creatinine 0.8 mg/dL 0.6-1.4 BUN/Creat Ratio 15.0 CALC 8.0-36.0 Calcium 9.3 mg/dL 8.6-10.2 Total Protein 7.2 g/dL 6.4-8.3 Albumin 4.5 g/dL 3.8-5.5 Globulin 2.7 g/dL 2.0-4.8 A/G Ratio 1.7 CALC 0.6-2.3 Alk. Phosphatase 63 U/L 30-110 Alt (SGPT) 43 U/L High 7-35 22 Ast (Sgot) 26 U/L 5-34 Total Bilirubin 0.4 mg/dL 0.2-1.3 GFR Non- >60 ml/min/1.73m^ >=60 GFR >60 ml/min/1.73m^ >=60 Lipid Profile 11/23/2015 Cholesterol 185 mg/dL 120-200 Triglycerides 172 mg/dL 30-200 HDL Cholesterol 40 mg/dL 30-85 LDL (Calculated) 111 CALC 0-129 VLDL Cholesterol 34 mg/dL 0-50 HDL Risk Factor 4.6 CALC High 0.0-4.4 Laboratory test finding 11/23/2015 TSH 1.66 mIU/L 0.50-6.00 Complete Blood Count 11/23/2015 WBC 6.8 x10^3/UL 3.6-9.6 RBC 4.56 x10^6/UL 3.90-5.70 HGB 14.0 g/dL 12.1-17.2 HCT 40 % 36-50 MCV 88.0 fL 82.2-97.4 MCH 30.7 pg 27.6-33.3 MCHC 34.9 g/dL 33.0-35.5 RDW 14.1 % High 11.6-13.7 PLT 199 x10^3/UL 150-400 MPV 7.7 fL 7.4-10.4 Gran # 4.5 x10^3/UL 1.5-7.2 Lymph# 2.0 x10^3/UL 0.7-4.9 Burt# 0.3 x10^3/UL 0.1-0.9 Gran % 65.0 % 42.2-75.2 Lymph % 30.4 % 20.5-51.1 Burt% 4.6 % 1.7-9.3 Laboratory test finding 11/17/2015 Uric Acid 6.9 mg/dL 2.5-9.2 Protein Electrophoresis 11/17/2015 Protein, Total, 7.1 g/dL 6.0-8.5 23 W/Interp Serum Albumin 4.1 g/dL 2.9-4.4 23, 24 Zajpg-4-Ofdtsjme 0.3 g/dL 0.1-0.4 23, 25 Ftuyu-5-Mqbfebbo 0.7 g/dL 0.4-1.2 23, 26 Beta Globulin 1.1 g/dL 0.6-1.3 23, 27 Gamma Globulin 1.0 g/dL 0.5-1.6 23, 28 M-Cornelio Not Observed g/dL Not Observed 23 Globulin, Total 3.0 g/dL 2.0-4.5 23, 29 A/G Ratio 1.4 0.7-2.0 23, 30 Please note: See Comment: , 31 P E Interpretation, S See Comment: 23, 32 Laboratory test finding 11/17/2015 PDF [id number] SEE IMAGE 23 Comprehensive Metabolic Prof 06/06/2015 Sodium 137 mEq/L 134-149 Potassium 3.8 mEq/L 3.6-5.5 Chloride 96 mEq/L 94-112 Carbon Dioxide 30 mEq/L 21-32 Glucose 110 mg/dL High 70-105 33 BUN 9 mg/dL 6-26 Creatinine 0.7 mg/dL 0.6-1.4 BUN/Creat Ratio 12.9 CALC 8.0-36.0 Calcium 9.5 mg/dL 8.6-10.2 Total Protein 7.1 g/dL 6.4-8.3 Albumin 4.7 g/dL 3.8-5.5 Globulin 2.4 g/dL 2.0-4.8 A/G Ratio 2.0 CALC 0.6-2.3 Alk. Phosphatase 72 U/L 30-110 Alt (SGPT) 43 U/L High 7-35 34 Ast (Sgot) 27 U/L 5-34 Total Bilirubin 0.4 mg/dL 0.2-1.3 GFR Non- >60 ml/min/1.73m^ >=60 GFR >60 ml/min/1.73m^ >=60 Laboratory test finding 06/06/2015 Hemoglobin A1c 5.9 % High 4.1-5.7 (Fma/CMC,CX) Comprehensive Metabolic 03/17/2015 Sodium 139 mEq/L 134-149 Prof Potassium 3.8 mEq/L 3.6-5.5 Chloride 98 mEq/L 94-112 Carbon Dioxide 28 mEq/L 21-32 Glucose 101 mg/dL 70-105 BUN 9 mg/dL 6-26 Creatinine 0.8 mg/dL 0.6-1.4 BUN/Creat Ratio 11.3 CALC 8.0-36.0 Calcium 9.4 mg/dL 8.6-10.2 Total Protein 7.0 g/dL 6.4-8.3 Albumin 4.4 g/dL 3.8-5.5 Globulin 2.6 g/dL 2.0-4.8 A/G Ratio 1.7 CALC 0.6-2.3 Alk. Phosphatase 62 U/L 30-110 Alt (SGPT) 45 U/L High 7-35 35 Ast (Sgot) 29 U/L 5-34 Total Bilirubin 0.4 mg/dL 0.2-1.3 GFR Non- >60 ml/min/1.73m^ >=60 GFR >60 ml/min/1.73m^ >=60 Laboratory test finding 03/17/2015 Hemoglobin A1c 5.5 % 4.1-5.7 ([facility] Comprehensive Metabolic 01/13/2015 Sodium 135 mEq/L 134-149 Prof Potassium 3.9 mEq/L 3.6-5.5 Chloride 101 mEq/L 94-112 Carbon Dioxide 30 mEq/L 21-32 Glucose 92 mg/dL 70-105 BUN 14 mg/dL 6-26 Creatinine 0.7 mg/dL 0.6-1.4 BUN/Creat Ratio 20.0 CALC 8.0-36.0 Calcium 9.7 mg/dL 8.6-10.2 Total Protein 7.4 g/dL 6.4-8.3 Albumin 4.5 g/dL 3.8-5.5 Globulin 2.9 g/dL 2.0-4.8 A/G Ratio 1.6 CALC 0.6-2.3 Alk. Phosphatase 58 U/L 30-110 Alt (SGPT) 58 U/L High 7-35 36 Ast (Sgot) 31 U/L 5-34 Total Bilirubin 0.3 mg/dL 0.2-1.3 Laboratory test finding 12/14/2014 Hemoglobin A1c 5.7 % 4.1-5.7 ([facility] Comprehensive Metabolic 12/07/2014 Sodium 135 mEq/L 134-149 Prof Potassium 4.3 mEq/L 3.6-5.5 Chloride 98 mEq/L 94-112 Carbon Dioxide 27 mEq/L 21-32 Glucose 231 mg/dL High 70-105 37 BUN 11 mg/dL 6-26 Creatinine 0.7 mg/dL 0.6-1.4 BUN/Creat Ratio 15.7 CALC 8.0-36.0 Calcium 9.4 mg/dL 8.6-10.2 Total Protein 6.5 g/dL 6.4-8.3 Albumin 4.0 g/dL 3.8-5.5 Globulin 2.5 g/dL 2.0-4.8 A/G Ratio 1.6 CALC 0.6-2.3 Alk. Phosphatase 61 U/L 30-110 Alt (SGPT) 62 U/L High 7-35 38 Ast (Sgot) 47 U/L High 5-34 39 Total Bilirubin 0.5 mg/dL 0.2-1.3 Laboratory test finding 11/23/2014 Aldolase, Serum 6.6 U/L 3.3-10.3 CCP Antibodies Igg/Iga 31 units High 0-19 40 Agnieszka Panel--LD (Ctx) 11/23/2014 Antinuclear Abs, Ifa Negative 41 Anti Dsdna Antibodies <1 IU/mL 0-9 42 Rheumatoid Arth Factor 8.2 IU/mL 0.0-13.9 Sjogren's AB Anti Ssa/SSB 11/23/2014 Sjogren's Anti-SS-A <0.2 AI 0.0-0.9 Sjogren's Anti-SS-B <0.2 AI 0.0-0.9 Antiextractable Nuclear Ag 11/23/2014 STRING CUTTER Antibodies <0.2 AI 0.0-0.9 Beard Antibodies <0.2 AI 0.0-0.9 Hla-B27 Disease Association 11/23/2014 Hla-B27 Negative 43 Laboratory test finding 11/20/2014 TSH 1.16 mIU/L 0.50-6.00 Free T4 0.89 ng/dL 0.75-1.54 Comprehensive Metabolic Prof 11/20/2014 Sodium 137 mEq/L 134-149 Potassium 3.9 mEq/L 3.6-5.5 Chloride 99 mEq/L 94-112 Carbon Dioxide 25 mEq/L 21-32 Glucose 176 mg/dL High 70-105 44 BUN 9 mg/dL 6-26 Creatinine 0.7 mg/dL 0.6-1.4 BUN/Creat Ratio 12.9 CALC 8.0-36.0 Calcium 9.8 mg/dL 8.6-10.2 Total Protein 7.0 g/dL 6.4-8.3 Albumin 4.5 g/dL 3.8-5.5 Globulin 2.5 g/dL 2.0-4.8 A/G Ratio 1.8 CALC 0.6-2.3 Alk. Phosphatase 63 U/L 30-110 Alt (SGPT) 56 U/L High 7-35 Ast (Sgot) 41 U/L High 5-34 Total Bilirubin 0.5 mg/dL 0.2-1.3 Laboratory test finding 11/20/2014 CK 55 U/L 26-140 CBC Electronic ([facility]) 11/20/2014 WBC 5.4 3.6-9.6 RBC 4.24 3.90-5.70 Hemoglobin (a/CMC/CTX) 13.3 g/dL 12.1 - 17.2 Hematocrit (a/CMC/CTX) 39.9 % 36.1 - 50.3 Platelets 206 10^3/ul 150-400 Lymph% 35.9 % 17.0-48.0 Mixed% 5.4 Neutrophils % 58.7 Mean Corpuscular Vol 94 82.2-97.4 Mean Corpuscular Hemoglobin 31.4 27.6-33.3 Mean Corpuscular Hemo Concen 33.4 32.0-36.0 RDW 12.6 11.6-13.7 Mean Platelet Volume 7.3 5.5-11.0 CBC Electronic ([facility]) 11/13/2014 WBC 5.9 3.6-9.6 RBC 4.18 3.90-5.70 Hemoglobin (a/CMC/CTX) 13.4 g/dL 12.1 - 17.2 Hematocrit (a/CMC/CTX) 39.6 % 36.1 - 50.3 Platelets 193 10^3/ul 150-400 Lymph% 35.8 % 17.0-48.0 Mixed% 6.7 Neutrophils % 57.5 Mean Corpuscular Vol 95 82.2-97.4 Mean Corpuscular Hemoglobin 31.9 27.6-33.3 Mean Corpuscular Hemo Concen 33.7 32.0-36.0 RDW 12.7 11.6-13.7 Mean Platelet Volume 6.7 5.5-11.0 Laboratory test finding 11/13/2014 Ammonia 21 umol/L 9-33 45 Comprehensive Metabolic Prof 11/13/2014 Sodium 141 mEq/L 134-149 Potassium 4.0 mEq/L 3.6-5.5 Chloride 100 mEq/L 94-112 Carbon Dioxide 29 mEq/L 21-32 Glucose 135 mg/dL High 70-105 46 BUN 10 mg/dL 6-26 Creatinine 0.7 mg/dL 0.6-1.4 BUN/Creat Ratio 14.3 CALC 8.0-36.0 Calcium 10.0 mg/dL 8.6-10.2 Total Protein 7.2 g/dL 6.4-8.3 Albumin 4.0 g/dL 3.8-5.5 Globulin 3.2 g/dL 2.0-4.8 A/G Ratio 1.3 CALC 0.6-2.3 Alk. Phosphatase 58 U/L 30-110 Alt (SGPT) 68 U/L High 7-35 47 Ast (Sgot) 49 U/L High 5-34 48 Total Bilirubin 0.6 mg/dL 0.2-1.3 Ua - Non Micro ([facility]) 10/15/2014 Appearance CLEAR Color YELLOW Glucose, Urine (a/[facility]CTX) NEG Bilirubin NEG Ketones NEG SP Grav 1.010 Blood NEG PH 6.0 Protein NEG Urobil 0.2 Nitrite NEG Leukocytes ([facility]) NEG Laboratory test finding 10/15/2014 TSH 1.26 mIU/L 0.50-6.00 Comprehensive Metabolic Prof 10/15/2014 Sodium 140 mEq/L 134-149 Potassium 3.8 mEq/L 3.6-5.5 Chloride 102 mEq/L 94-112 Carbon Dioxide 24 mEq/L 21-32 Glucose 128 mg/dL High 70-105 49 BUN 9 mg/dL 6-26 Creatinine 0.8 mg/dL 0.6-1.4 BUN/Creat Ratio 11.3 CALC 8.0-36.0 Calcium 9.4 mg/dL 8.6-10.2 Total Protein 6.6 g/dL 6.4-8.3 Albumin 4.3 g/dL 3.8-5.5 Globulin 2.3 g/dL 2.0-4.8 A/G Ratio 1.9 CALC 0.6-2.3 Alk. Phosphatase 55 U/L 30-110 Alt (SGPT) 90 U/L High 7-35 Ast (Sgot) 61 U/L High 5-34 Total Bilirubin 0.6 mg/dL 0.2-1.3 Surgical Pathology 08/09/2014 S RUN DATE: 08/11/ <SEE NOTE> 50 Hepatic 07/26/2014 Total Protein 7.2 g/dL 6.4-8.3 Albumin 4.4 g/dL 3.8-5.5 Globulin 2.8 g/dL 2.0-4.8 A/G Ratio 1.6 CALC 0.6-2.3 Alk. Phosphatase 74 U/L 30-110 Alt (SGPT) 144 U/L High 7-35 51 Ast (Sgot) 105 U/L High 5-34 52 Total Bilirubin 0.8 mg/dL 0.2-1.3 Direct Bilirubn 0.2 mg/dL 0.0-0.6 Indirect Bilirubin 0.60 mg/dL 0.10-1.00 Laboratory test finding 07/26/2014 Gamma gt 106 U/L High 5-71 Comprehensive Metabolic Prof 06/22/2014 Sodium 140 mEq/L 134-149 Potassium 3.7 mEq/L 3.6-5.5 Chloride 99 mEq/L 94-112 Carbon Dioxide 30 mEq/L 21-32 Glucose 97 mg/dL 70-105 BUN 10 mg/dL 6-26 Creatinine 0.7 mg/dL 0.6-1.4 BUN/Creat Ratio 14.3 CALC 8.0-36.0 Calcium 9.8 mg/dL 8.6-10.2 Total Protein 7.9 g/dL 6.4-8.3 Albumin 4.5 g/dL 3.8-5.5 Globulin 3.4 g/dL 2.0-4.8 A/G Ratio 1.3 CALC 0.6-2.3 Alk. Phosphatase 56 U/L 30-110 Alt (SGPT) 143 U/L High 7-35 53 Ast (Sgot) 85 U/L High 5-34 54 Total Bilirubin 0.8 mg/dL 0.2-1.3 Lipid Profile 06/22/2014 Cholesterol 242 mg/dL High 120-200 Triglycerides 236 mg/dL High 30-200 HDL Cholesterol 57 mg/dL 30-85 LDL (Calculated) 138 CALC High 0-129 VLDL Cholesterol 47 mg/dL 0-50 HDL Risk Factor 4.2 CALC 0.0-4.4 Laboratory test finding 06/22/2014 TSH 1.62 mIU/L 0.50-6.00 Vitamin D25 74 30-100 Complete Blood Count 06/22/2014 WBC 5.5 x10^3/UL 3.6-9.6 RBC 4.48 x10^6/UL 3.90-5.70 HGB 15.2 g/dL 12.1-17.2 HCT 44 % 36-50 MCV 99.0 fL High 82.2-97.4 MCH 34.0 pg High 27.6-33.3 MCHC 34.3 g/dL 33.0-35.5 RDW 11.9 % 11.6-13.7 PLT 190 x10^3/UL 150-400 MPV 7.8 fL 7.4-10.4 Gran # 3.0 x10^3/UL 1.5-7.2 Lymph# 2.2 x10^3/UL 0.7-4.9 Burt# 0.3 x10^3/UL 0.1-0.9 Gran % 54.8 % 42.2-75.2 Lymph % 39.7 % 20.5-51.1 Burt% 5.5 % 1.7-9.3 Hepatitis Acute Panel 06/22/2014 Hep B Surface NON-REACTIVE Non-Reactive 55 Antigen Hep C Antibody NON-REACTIVE Non-Reactive 55 Hep C S/Co Ratio 0.1 0.0-0.7 55 Hep B Core Antibody Igm NON-REACTIVE Non-Reactive 55 Hep A Antibody Igm NON-REACTIVE Non-Reactive 55 Comprehensive Metabolic Prof 05/11/2014 Sodium 136 mEq/L 134-149 Potassium 4.0 mEq/L 3.6-5.5 Chloride 97 mEq/L 94-112 Carbon Dioxide 30 mEq/L 21-32 Glucose 102 mg/dL 70-105 BUN 10 mg/dL 6-26 Creatinine 0.7 mg/dL 0.6-1.4 BUN/Creat Ratio 14.3 CALC 8.0-36.0 Calcium 9.7 mg/dL 8.6-10.2 Total Protein 7.6 g/dL 6.4-8.3 Albumin 4.9 g/dL 3.8-5.5 Globulin 2.7 g/dL 2.0-4.8 A/G Ratio 1.8 CALC 0.6-2.3 Alk. Phosphatase 62 U/L 30-110 Alt (SGPT) 135 U/L High 7-35 56 Ast (Sgot) 89 U/L High 5-34 57 Total Bilirubin 0.8 mg/dL 0.2-1.3 Laboratory test finding 11/10/2013 Troponin I 0.00 ng/mL <0.03 58 CBC Auto Diff 11/10/2013 White Blood Count 7.4 10^3/uL 4.8-10.8 Red Blood Count 4.53 10^6/uL 4.0-5.4 Hemoglobin 15.2 g/dL 12.0-16.0 Hematocrit 43 % 35-47 Mean Corpuscular Volume 94 fL 80-97 Mean Corpuscular Hemoglobin 34 pg High 27-31 Mean Corpuscular HGB Conc 36 g/dL 31-36 Red Cell Distribution Width 13 % 10.5-15 Platelet Count 166 10^3/uL 150-450 Mean Platelet Volume 8 um3 7.4-10.4 Abs Neutrophils 4.4 10^3/uL 1.5-7.7 Abs Lymphocytes 2.3 10^3/uL 1.0-4.8 Abs Monocytes 0.5 10^3/uL 0-0.8 Abs Eosinophils 0.1 10^3/uL 0-0.6 Abs Basophils 0.1 10^3/uL 0-0.2 Abs Nucleated RBC 0.01 10^3/uL Granulocyte % 59.4 % 38-83 Lymphocyte % 31.4 % 25-47 Monocyte % 6.9 % 1-9 Eosinophil % 1.6 % 0-6 Basophil % 0.7 % 0-2 Nucleated Red Blood Cells % 0.1 Comp Metabolic Panel 11/10/2013 Sodium 136 mmol/L 133-145 Potassium 3.7 mmol/L 3.7-5.6 Chloride 101 mmol/L 101-111 Co2 Carbon Dioxide 27 mmol/L 22-32 Anion Gap 8 mmol/L 2-11 Glucose 101 mg/dL High 70-100 Blood Urea Nitrogen 10 mg/dL 6-24 Creatinine 0.68 mg/dL 0.51-0.95 BUN/Creatinine Ratio 14.7 8-20 Calcium 9.6 mg/dL 8.6-10.3 Total Protein 7.0 g/dL 6.4-8.9 Albumin 4.3 g/dL 3.2-5.2 Globulin 2.7 g/dL 2-4 Albumin/Globulin Ratio 1.6 1-3 Total Bilirubin 0.70 mg/dL 0.2-1.0 Alkaline Phosphatase 63 U/L 34-104 Alt 54 U/L High 7-52 Ast 37 U/L 13-39 Egfr Non- 91.6 >60 Egfr 117.8 >60 59 Laboratory test finding 11/10/2013 Lipase 41 U/L 11.0-82.0 CKMB 11/10/2013 CKMB ng/mL 0.7 ng/mL 0.6-6.3 Laboratory test finding 11/10/2013 Troponin I 0.00 ng/mL <0.03 60 C Reactive Protein 8.52 mg/L High < 5.00 61 Inr/Protime 11/10/2013 Inr 1.00 0.85-1.06 Laboratory test 11/10/2013 D Dimer Quantitative < 200 ng/mL Less Than 230 62 finding Laboratory test 10/22/2013 Varicella Zoster V 823 index Immune >165 63 finding AB,Igg MMR Imm 10/22/2013 Rubella Antibodies, 2.50 index 64 IgG Rubeola Ab, IgG <25.0 AU/mL Low Immune >29.9 65 Mumps Abs, IgG <9.0 AU/mL Low Immune >10.9 66 Ua - Micro (Fma) 07/28/2013 Appearance clear Color yellow Glucose - Bilirubin - Ketones - SP Grav 1.020 Blood small PH 5.5 Protein - Urobil 0.2 Nitrite - Leukocytes (Fma/CMC/Centrex) - Hyaline - /Lpf Granular - /Lpf WBC (Fma,[facility]rex) 0-1 RBC 2-3 Mucus - /Lpf Epith occ /Lpf Bacteria trace /Hpf Amorphous - /Lpf Crystals, Fluid (Fma/CMC/CTX) - Z#Comments - Basic Metabolic Profile 07/11/2013 BUN 8 mg/dL 6-26 Calcium 9.9 mg/dL 8.6-10.2 Chloride 98 mEq/L 94-112 Creatinine 0.8 mg/dL 0.6-1.4 Carbon Dioxide 29 mEq/L 21-32 Glucose 115 mg/dL High 70-105 67 Sodium 144 mEq/L 134-149 Potassium 3.8 mEq/L 3.6-5.5 BUN/Creat Ratio 10.8 Calc 8.0-36.0 Laboratory test finding 07/11/2013 TSH 1.23 mIU/L 0.50-6.00 Laboratory test finding 07/11/2013 Monospot (a/Centrex) NEG CBC Electronic (a) 07/11/2013 WBC 4.5 3.6-9.6 RBC 4.08 3.90-5.70 Hemoglobin (Fma/CMC/CTX) 13.9 g/dL 12.1 - 17.2 Hematocrit (Fma/CMC/CTX) 38.4 % 36.1 - 50.3 Platelets 224 10^3/ul 150-400 Lymph% 37.2 % 17.0-48.0 Mixed% 4.3 Neutrophils % 58.5 Mean Corpuscular Vol 94 82.2-97.4 Mean Corpuscular Hemoglobin 34.2 High 27.6-33.3 Mean Corpuscular Hemo Concen 36.3 High 32.0-36.0 RDW 12.4 11.6-13.7 Mean Platelet Volume 7.2 6.5-11.0 CBC Auto Diff 01/09/2013 White Blood Count 10.3 10^3/uL 4.8-10.8 Red Blood Count 4.33 10^6/uL 4.0-5.4 Hemoglobin 13.6 g/dL 12.0-16.0 Hematocrit 40 % 35-47 Mean Corpuscular Volume 92 fL 80-97 Mean Corpuscular Hemoglobin 31 pg 27-31 Mean Corpuscular HGB Conc 34 g/dL 31-36 Red Cell Distribution Width 14 % 10.5-15 Platelet Count 202 10^3/uL 150-450 Mean Platelet Volume 9 um3 7.4-10.4 Abs Neutrophils 7.0 10^3/uL 1.5-7.7 Abs Lymphocytes 2.2 10^3/uL 1.0-4.8 Abs Monocytes 0.8 10^3/uL 0-0.8 Abs Eosinophils 0.2 10^3/uL 0-0.6 Abs Basophils 0.1 10^3/uL 0-0.2 Abs Nucleated RBC 0 10^3/uL Granulocyte % 67.8 % 38-83 Lymphocyte % 21.4 % Low 25-47 Monocyte % 8.2 % 1-9 Eosinophil % 2.0 % 0-6 Basophil % 0.6 % 0-2 Nucleated Red Blood Cells % 0 Laboratory test finding 01/09/2013 Erythrocyte Sed Rate 70 mm/Hr High 0- 14 Anca Panel For Vasculitis 01/09/2013 Myeloperoxidase AB <0.2 U 68 Proteinase 3 AB <0.2 U 69 Laboratory test finding 01/09/2013 Angiotension Converting Enzyme 28 U/L 8 - 53 70 Agnieszka (Anti-Nuclear AB) Screen Negative Negative Hypersensitivity Pneumonitis 01/09/2013 Aspergillus fumigatus IgG 8.3 mg/L <=102 Ab Micropolyspora faeni IgG Ab <2.0 mg/L <=13.2 71 Thermoactinomyces vulgaris IgG 12.2 mg/L <=23.9 72 CBC Auto Diff 12/06/2012 White Blood Count 9.3 10^3/uL 4.8-10.8 Red Blood Count 3.91 10^6/uL Low 4.0-5.4 Hemoglobin 12.6 g/dL 12.0-16.0 Hematocrit 36 % 35-47 Mean Corpuscular Volume 93 fL 80-97 Mean Corpuscular Hemoglobin 32 pg High 27-31 Mean Corpuscular HGB Conc 35 g/dL 31-36 Red Cell Distribution Width 13 % 10.5-15 Platelet Count 214 10^3/uL 150-450 Mean Platelet Volume 9 um3 7.4-10.4 Abs Neutrophils 5.8 10^3/uL 1.5-7.7 Abs Lymphocytes 2.5 10^3/uL 1.0-4.8 Abs Monocytes 0.8 10^3/uL 0-0.8 Abs Eosinophils 0.1 10^3/uL 0-0.6 Abs Basophils 0.1 10^3/uL 0-0.2 Abs Nucleated RBC 0 10^3/uL Granulocyte % 62.5 % 38-83 Lymphocyte % 27.0 % 25-47 Monocyte % 8.4 % 1-9 Eosinophil % 1.3 % 0-6 Basophil % 0.8 % 0-2 Nucleated Red Blood Cells % 0 Comp Metabolic Panel 12/06/2012 Sodium 137 mmol/L 133-145 Potassium 3.0 mmol/L Low 3.5-5.0 Chloride 102 mmol/L 101-111 Co2 Carbon Dioxide 27.0 mmol/L 22-32 Anion Gap 8.0 mmol/L 2-11 Glucose 93 mg/dL 70-100 Blood Urea Nitrogen 5 mg/dL Low 6-24 Creatinine 0.60 mg/dL 0.50-1.40 BUN/Creatinine Ratio 8.3 8-20 Calcium 8.9 mg/dL 8.1-9.9 Total Protein 6.9 g/dL 6.2-8.1 Albumin 3.2 g/dL Low 3.6-5.4 Globulin 3.7 g/dL 2-4 Albumin/Globulin Ratio 0.9 Low 1-3 Total Bilirubin 0.4 mg/dL 0.4-1.5 Alkaline Phosphatase 70 U/L 30-110 Alt 27 U/L 14-54 Ast 22 U/L 12-42 Egfr Non- 106.3 >60 Egfr 136.6 >60 73 Urinalysis 11/27/2012 Urine Color Simona Urine Appearance Clear Urine Specific Bassett 1.023 1.010-1.030 Urine Esterase Negative Negative Urine Nitrate Negative Negative Urine Urobilinogen Negative E.U./dL Negative Urine Protein Trace mg/dL Negative Urine pH 5.5 5-9 Urine Blood Negative Negative Urine Ketones Negative mg/dL Negative Urine Bilirubin Negative Negative Urine Glucose Negative mg/dL Negative CBC Auto Diff 11/27/2012 White Blood Count 11.1 10^3/uL High 4.8-10.8 Red Blood Count 4.56 10^6/uL 4.0-5.4 Hemoglobin 14.9 g/dL 12.0-16.0 Hematocrit 42 % 35-47 Mean Corpuscular Volume 93 fL 80-97 Mean Corpuscular Hemoglobin 33 pg High 27-31 Mean Corpuscular HGB Conc 35 g/dL 31-36 Red Cell Distribution Width 13 % 10.5-15 Platelet Count 255 10^3/uL 150-450 Mean Platelet Volume 9 um3 7.4-10.4 Abs Neutrophils 8.0 10^3/uL High 1.5-7.7 Abs Lymphocytes 2.1 10^3/uL 1.0-4.8 Abs Monocytes 0.7 10^3/uL 0-0.8 Abs Eosinophils 0.1 10^3/uL 0-0.6 Abs Basophils 0.1 10^3/uL 0-0.2 Abs Nucleated RBC 0 10^3/uL Granulocyte % 72.6 % 38-83 Lymphocyte % 18.9 % Low 25-47 Monocyte % 6.6 % 1-9 Eosinophil % 1.2 % 0-6 Basophil % 0.7 % 0-2 Nucleated Red Blood Cells % 0 Inr/Protime 11/27/2012 Inr 1.04 High 0.87-0.97 Laboratory test 11/27/2012 Activated Partial 35.7 seconds 22.18-37.18 finding Thrombo Time B Type Natriuretic Peptide 21.0 pg/mL 0-100 Comp Metabolic Panel 11/27/2012 Sodium 139 mmol/L 133-145 Potassium 3.7 mmol/L 3.5-5.0 Chloride 102 mmol/L 101-111 Co2 Carbon Dioxide 27.0 mmol/L 22-32 Anion Gap 10.0 mmol/L 2-11 Glucose 115 mg/dL High 70-100 Blood Urea Nitrogen 9 mg/dL 6-24 Creatinine 0.50 mg/dL 0.50-1.40 BUN/Creatinine Ratio 18.0 8-20 Calcium 9.3 mg/dL 8.1-9.9 Total Protein 7.3 g/dL 6.2-8.1 Albumin 3.6 g/dL 3.6-5.4 Globulin 3.7 g/dL 2-4 Albumin/Globulin Ratio 1.0 1-3 Total Bilirubin 0.7 mg/dL 0.4-1.5 Alkaline Phosphatase 76 U/L 30-110 Alt 36 U/L 14-54 Ast 31 U/L 12-42 Egfr Non- 131.1 >60 Egfr 168.6 >60 74 Laboratory test finding 11/27/2012 Magnesium 1.7 mg/dL 1.7-2.6 Troponin I 0.01 ng/mL 0-0.06 75 TSH (Thyroid Stimulating Horm) 0.54 miu/mL 0.34-5.60 Laboratory test finding 10/30/2012 Vitamin D, 25 Oh 48.1 ng/mL 30.0- 100.0 76 Laboratory test finding 01/04/2012 Free T4 1.18 ng/dL 0.75-1.54 B12 528 pg/mL 230-1050 Laboratory test finding 09/07/2011 Hemoglobin A1c (Fma/CMC,CX) 5.4 % 4.1- 5.7 Sed Rate (Fma/CMC/Centrex) 13 mm Glucose, Serum (Fma/CMC/CTX) 112 mg/dL High 70-105 Agnieszka Panel--LD (Ctx/cmc) 09/07/2011 Antinuclear Abs, Ifa Negative 77 Rheumatoid Arth Factor 9.4 IU/mL 0.0-13.9 Anti Dsdna Antibodies <1 IU/mL 0-9 78 Hla B27 Disease Assoc. HLA-B*27 Negativ <SEE NOTE> 79 Antiextractable Nuclear Ag 09/07/2011 STRING CUTTER Antibodies <0.2 AI 0.0-0.9 Beard Antibodies <0.2 AI 0.0-0.9 Sjogren's AB Anti Ssa/SSB 09/07/2011 Sjogren's Anti-SS-A <0.2 AI 0.0-0.9 Sjogren's Anti-SS-B <0.2 AI 0.0-0.9 Ua - Non Micro (a) 08/28/2011 Appearance clear Color yellow Glucose - Bilirubin - Ketones - SP Grav 1.025 Blood - PH 5.5 Protein - Urobil 0.2 Nitrite - Leukocytes (Fma/CMC/Centrex) - Laboratory test finding 08/14/2011 Vitamin D, 25 Oh 46.4 ng/mL 30.0- 100.0 80, 81 Gamma gt 37 U/L 5-71 80 CBC Electronic (a) 08/14/2011 WBC 7.1 3.6-9.6 RBC 4.53 3.90-5.70 Hemoglobin (Fma/CMC/CTX) 14.6 g/dL 12.1 - 17.2 Hematocrit (Fma/CMC/CTX) 43.0 % 36.1 - 50.3 Platelets 234 10^3/ul 150-400 Lymph% 27.5 20.5-51.1 Mixed% 3.2 Neutrophils % 69.3 Mean Corpuscular Vol 95 82.2-97.4 Mean Corpuscular Hemoglobin 32.1 27.6-33.3 Mean Corpuscular Hemo Concen 33.8 32.0-36.0 RDW 11.5 Low 11.6-13.7 Mean Platelet Volume 8.5 6.5-11.0 Laboratory test finding 08/14/2011 TSH 0.68 mIU/L 0.50-6.00 Lipid Profile 08/14/2011 Cholesterol 181 mg/dL 120-200 HDL 32 mg/dL 30-85 Triglycerides 198 mg/dL 30-200 HDL Risk Factor 5.7 CALC High 0.0-4.0 LDL (Calculated) 109 CALC 0-129 VLDL (Calculated) 40 mg/dL 0-50 Comprehensive Metabolic Prof 08/14/2011 Albumin 4.8 g/dL 3.8-5.5 Alk. Phos. 66 U/L 30-110 Alt (SGPT) 95 U/L High 7-35 Ast (Sgot) 42 U/L High 5-34 BUN 12 mg/dL 6-26 Calcium 9.6 mg/dL 8.6-10.2 Chloride 100 mEq/L 94-112 Creatinine 0.7 mg/dL 0.6-1.4 Carbon Dioxide 29 mEq/L 21-32 Glucose 108 mg/dL High 70-105 82 Sodium 139 mEq/L 134-149 Total Bilirubin 0.5 mg/dL 0.2-1.3 Total Protein 7.2 g/dL 6.3-8.1 Potassium 4.0 mEq/L 3.6-5.5 Globulin 2.4 g/dL 2.0-4.8 A/G Ratio 2.0 Calc 0.6-2.2 BUN/Creat Ratio 16.6 Calc 8.0-36.0 Factor II (Prothrombin) [place] 04/07/2011 [place] [address] Mutation Method . () 83 Prothrombin 55873 Mutation Negative [place] 84 [place] [address] Mutation Interp . () 85 Reviewed By Jason Hung MD () 86 Cardiolipin Igg,Igm,Iga AB 04/07/2011 Cardiolipin Igg AB <4.0 GPL () 87 Cardiolipin Igm AB <4.0 MPL () 88 Cardiolipin Iga AB <4.0 APL () 89 Lupus Anticoagulant AB 04/07/2011 Prothrombin Time 11.4 sec 10.3-12.8 Inr 1.0 0.9-1.1 Aptt 30 sec 26-36 DRVVT Screen Ratio 1.0 ratio <1.2 Interpretation SEE BELOW () 90 Activated Protein C 04/07/2011 Act Protein C Resistance 2.9 >or=2.3 Resistance Ratio Act Protein C Resist Interp . () 91 1 Sole Edge Inker Machine: [id number] 2 SRC:urine 1 jackson top urine vacutainer 3 Source of Specimen: urine 1 jackson top urine 4 Source of Specimen: urine 1 jackson top urine 5 consistent w/ previous results 6 consistent w/ previous results 7 consistent w/ previous results 8 consistent w/ previous results 9 SEE RESULT BELOW Name: MARAL LIEBERMAN Francesca : [address]: Ismael Shaffer MD Acct: [id number] Unit: [id number] AGE: 51 Location: ENDO Re01/08/17 SEX: F Status: DEP REF SPEC: [id number] NEO: 01/08/17-[address] [facility] DR: Ismael Shaffer MD REQ: [id number] RECD: 01/08/17 STATUS: BENNY CLAYTON DR: Jacqui Joseph MD _ ORDERED: LEVEL 4/2 FINAL DIAGNOSIS 1. Stomach, antrum, biopsy: -- Gastric antral mucosa with mild diffuse chronic inflammation. -- No active gastritis nor Helicobacter pylori-like organisms identified. 2. Gastric esophageal nodule, biopsy: -- Gastric Cardia-type mucosa with foveolar hyperplasia. -- No goblet cell/intestinal metaplasia or dysplasia identified. -- No squamous component identified. CLINICAL HISTORY No history given POST-OPERATIVE DIAGNOSIS Esophagus - gastroesophageal junction nodule biopsied; stomach - normal, biopsied; duodenum - small ulcer GROSS DESCRIPTION 1. The specimen is received in formalin labeled, Gastric Antral Biopsy, and consists of a 0.7 x 0.2 x 0.1 cm huff-pink irregular soft tissue fragment, which is submitted entirely in one cassette. 2. The specimen is received in formalin labeled, Gastric Esophageal Nodule Biopsy, and consists of a 0.5 x 0.3 x 0.1 cm huff-pink irregular soft tissue fragment, which is submitted entirely in one cassette. Signed (signature on file) Stoney Sepulveda MD 1541 END OF REPORT * ML=Testing performed at Main Lab DEPARTMENT OF PATHOLOGY, [address] [place] [address] Stoney Sepulveda M.D. Director [facility] # [id number] 10 [facility] Severe Sepsis and Septic Shock Management Bundle Measure requires all lactic acids initially measuring >2.0 mmol/L be repeated. 11 Because ethnic data is not always readily available, this report includes an eGFR for both -Americans and non- Americans. The National Kidney Disease Education Program (NKDEP) does not endorse the use of the MDRD equation for patients that are not between the ages of 18 and 70, are , have extremes of body size, muscle mass, or nutritional status, or are non- or non-. According to the National Kidney Foundation, irrespective of diagnosis, the stage of the disease is based on the level of kidney function: Stage Description GFR(mL/min/1.73 m(2)) 1 Kidney damage with normal or decreased GFR 90 2 Kidney damage with mild decrease in GFR 60-89 3 Moderate decrease in GFR 30-59 4 Severe decrease in GFR 15-29 5 Kidney failure <15 (or dialysis) 12 2 sst 13 Negative <1:80 Borderline 1:80 Positive >1:80 14 Positive: 5 of the following Borrelia-specific bands: 18,23,28,30,39,41,45,58, 66, and 93. Negative: No bands or banding patterns which do not meet positive criteria. 15 Note: An equivocal or positive EIA result followed by a negative Western Blot result is considered NEGATIVE. An equivocal or positive EIA result followed by a positive Western Blot is considered POSITIVE by the CDC. Positive: 2 of the following bands: 23,39 or 41 Negative: No bands or banding patterns which do not meet positive criteria. Criteria for positivity are those recommended by CDC/ASTPHLD. p23=Osp C, x05=eyagucveo Note: Sera from individuals with the following may cross react in the Lyme Western Blot assays: other spirochetal diseases (periodontal disease, leptospirosis, relapsing fever, yaws, and pinta); connective autoimmune (Rheumatoid Arthritis and Systemic Lupus Erythematosus and also individuals with Antinuclear Antibody); other infections ([place] Spotted Fever; Stanley-Meneses Virus, and Cytomegalovirus). 16 Sole Edge Inker Machine: [id number] 17 SEE RESULT BELOW Name: MARYMARAL L : [address]: Juan Talley MD Acct: [id number] Unit: [id number] AGE: 50 Location: ED Re09/22/16 SEX: F Status: REG ER SPEC: [id number] NEO: 09/22/[address] [facility] DR: Juan Talley MD REQ: [id number] RECD: 09/22/16 STATUS: RADHA CLAYTON DR: Neeru Patel MD _ SOURCE: [facility]: ORDERED: Flu A B Request Procedure Result Reported Site Rapid Influenza A B Request Final 09/22/16- 1351 ML Specimen received for Influenza A/B Molecular testing * ML - MAIN LAB ([facility]) . END OF REPORT * ML=Testing performed at Main Lab DEPARTMENT OF PATHOLOGY, [address] [place] [address] Stoney Sepulveda M.D. Director [facility] # [id number] 18 [facility] Severe Sepsis and Septic Shock Management Bundle Measure requires all lactic acids initially measuring >2.0 mmol/L be repeated. 19 Because ethnic data is not always readily available, this report includes an eGFR for both -Americans and non- Americans. The National Kidney Disease Education Program (NKDEP) does not endorse the use of the MDRD equation for patients that are not between the ages of 18 and 70, are , have extremes of body size, muscle mass, or nutritional status, or are non- or non-. According to the National Kidney Foundation, irrespective of diagnosis, the stage of the disease is based on the level of kidney function: Stage Description GFR(mL/min/1.73 m(2)) 1 Kidney damage with normal or decreased GFR 90 2 Kidney damage with mild decrease in GFR 60-89 3 Moderate decrease in GFR 30-59 4 Severe decrease in GFR 15-29 5 Kidney failure <15 (or dialysis) 20 Acute inflammation: >10.00 21 consistent w/ previous results 22 consistent w/ previous results 23 24 Effective November 21, 2015 the reference interval for Albumin will be changing to: 0 - 30 days Not Estab. >30 days 2.9 - 4.4 25 Effective November 21, 2015 the reference interval for Ubvyy-0-Lxpfgqiy will be changing to: 0 - 30 days Not Estab. >30 days 0.0 - 0.4 26 Effective November 21, 2015 the reference interval for Ziqfw-9-Uimfwuan will be changing to: 0 - 30 days Not Estab. >30 days 0.4 - 1.0 27 Effective November 21, 2015 the reference interval for Beta Globulin will be changing to: 0 - 30 days Not Estab. 1 - 6 months 0.5 - 1.3 >6 months 0.7 - 1.3 28 Effective November 21, 2015 the reference interval for Gamma Globulin will be changing to: 0 - 30 days Not Estab. 1 - 6 months 0.3 - 1.6 7 months - 5 years 0.4 - 1.3 6 - 17 years 0.6 - 1.5 >17 years 0.4 - 1.8 29 Effective November 21, 2015 the reference interval for Globulin, Total will be changing to: 0 - 30 days Not Estab. >30 days 2.2 - 3.9 30 Effective November 21, 2015 the reference interval for A/G Ratio will be changing to: 0 - 30 days Not Estab. >30 days 0.7 - 1.7 31 Protein electrophoresis scan will follow via computer, mail, or cabin cleaner delivery. 32 The SPE pattern appears essentially unremarkable. Evidence of monoclonal protein is not apparent. 33 RESULTS VERIFIED BY REPEAT ANALYSIS 34 consistent w/ previous results 35 consistent w/ previous results 36 consistent w/ previous results 37 RESULTS VERIFIED BY REPEAT ANALYSIS 38 consistent w/ previous results 39 consistent w/ previous results 40 Negative <20 Weak positive 20 - 39 Moderate positive 40 - 59 Strong positive >59 41 Negative <1:80 Borderline 1:80 Positive >1:80 42 Negative <5 Equivocal 5 - 9 Positive >9 43 HLA-B*27 Negative HLA Lab CLIA ID Number [id number] This test was performed using PCR (Polymerase Chain Reaction)/SSOP (Sequence Specific Oligonucleotide Probes) technique. SBT (Sequence Based Typing) and/or SSP (Sequence Specific Primers) may be used as supplemental methods when necessary. Please contact HLA Customer Service at if you have any questions. Director of HLA Laboratory Dr Josh Mcfarland, PhD 44 consistent w/ previous results 45 1 POURED OFF PLASMA FROM CHILLED GREEN TUBE AND FROZEN 46 consistent w/ previous results 47 consistent w/ previous results 48 consistent w/ previous results 49 RESULTS VERIFIED BY REPEAT ANALYSIS 50 RUN DATE: 08/11/14 [facility] LAB LIVE PAGE 1 RUN TIME: [address] [place] [address] Specimen Inquiry Name: MARAL SOLANO Francesca : [address]: Ismael Shaffer MD Acct: [id number] Unit: [id number] AGE: 48 Location: ENDO Re08/09/14 SEX: F Status: REG REF SPEC: [id number] NEO: 08/09/14- SUBM DR: Ismale Shaffer MD REQ: [id number] RECD: 08/09/14 STATUS: SOUT OTHR DR: Neeru Patel MD _ ORDERED: LEVEL IV/3 FINAL DIAGNOSIS 1. Stomach, antrum, biopsy: -- Gastric antral mucosa with mild chronic inflammation. -- No active inflammation or Helicobacter pylori like organisms identified. 2. Colon, 35 cm, biopsy: -- Hyperplastic polyp. 3. Colon, rectum, biopsy: -- Hyperplastic polyp. CLINICAL HISTORY No clinical information provided POST-OPERATIVE DIAGNOSIS Esophagus - normal, no erosive esophagitis, no hiatal hernia; stomach - gastritis; duodenum - normal. Screening colonoscopy to cecum - biopsy at 35 cm. and rectum. 10 years GROSS DESCRIPTION 1. The specimen is received in formalin labeled, Biopsy Gastric Antrum, and consists of a 0.5 x 0.4 x 0.2 cm aggregate of multiple huff pierre irregular soft tissue fragments, which is submitted entirely in one cassette. 2. The specimen is received in formalin labeled, Biopsy Colon Polyp at 35 cm, and consists of a 0.5 x 0.3 x 0.2 cm huff irregular soft tissue fragment, which is submitted entirely in one cassette. 3. The specimen is received in formalin labeled, Biopsy Rectal Polyp, and consists of a 0.4 x 0.3 x 0.2 cm huff-jackson irregular soft tissue fragment, which is submitted entirely in CONTINUED ON NEXT PAGE * ML=Testing performed at Main Lab DEPARTMENT OF PATHOLOGY, [facility] [employer] [place], [place] [address] Stoney Sepulveda M.D. Director [facility] # [id number] RUN DATE: 08/11/14 [facility] LAB LIVE PAGE 2 RUN TIME: 1127 [facility] [employer] [place] [employer] [place], [place] [address] Specimen Inquiry Patient: MARAL SOLANO [id number] (Continued) GROSS DESCRIPTION (Continued) GROSS DESCRIPTION (Continued) one cassette. Signed (signature on file) Stoney Sepulveda MD 1128 END OF REPORT * ML=Testing performed at Main Lab DEPARTMENT OF PATHOLOGY, [address] [place] [address] Stoney Sepulveda M.D. Director [facility] # [id number] 51 consistent w/ previous results 52 consistent w/ previous results 53 consistent w/ previous results 54 consistent w/ previous results 55 FASTING; 1 SST 56 RESULTS VERIFIED BY REPEAT ANALYSIS 57 RESULTS VERIFIED BY REPEAT ANALYSIS 58 Reference Range and Interpretation: TnI (ng/mL) Interpretation Less Than 0.03 ng/mL Not supportive of diagnosis of UT 0.03 - 0.50 ng/mL Indeterminate: suggest serial studies if clinically indicated. Greater than 0.5 ng/mL Consistent with diagnosis of UT 59 Because ethnic data is not always readily available, this report includes an eGFR for both -Americans and non- Americans. The National Kidney Disease Education Program (NKDEP) does not endorse the use of the MDRD equation for patients that are not between the ages of 18 and 70, are , have extremes of body size, muscle mass, or nutritional status, or are non- or non-. According to the National Kidney Foundation, irrespective of diagnosis, the stage of the disease is based on the level of kidney function: Stage Description GFR(mL/min/1.73 m(2)) 1 Kidney damage with normal or decreased GFR 90 2 Kidney damage with mild decrease in GFR 60-89 3 Moderate decrease in GFR 30-59 4 Severe decrease in GFR 15-29 5 Kidney failure <15 (or dialysis) 60 Reference Range and Interpretation: TnI (ng/mL) Interpretation Less Than 0.03 ng/mL Not supportive of diagnosis of UT 0.03 - 0.50 ng/mL Indeterminate: suggest serial studies if clinically indicated. Greater than 0.5 ng/mL Consistent with diagnosis of UT 61 Acute inflammation: >10.00 62 Please note: The following may produce a false positive D Dimer test: - Rheumatoid factor greater than 60 IU/ml - Plasma hemoglobin greater than 0.05 gm/dl - Bilirubin greater than 50 mg/dl - Lipids greater than 1000 mg/dl - FDP greater than 20 ug/ml 63 Negative <135 Equivocal 135 - 165 Positive >165 A positive result generally indicates exposure to the pathogen or administration of specific immunoglobulins, but it is not indication of active infection or stage of disease. 64 Non-immune <0.90 Equivocal 0.90 - 0.99 Immune >0.99 65 Negative <25.0 Equivocal 25.0 - 29.9 Positive >29.9 Presence of antibodies to Rubeola is presumptive evidence of immunity except when acute infection is suspected. 66 Negative <9.0 Equivocal 9.0 - 10.9 Positive >10.9 A positive result generally indicates past exposure to Mumps virus or previous vaccination. 67 result rajesh'd 68 -- REFERENCE VALUE -- <0.4 (Negative) 69 -- REFERENCE VALUE -- <0.4 (Negative) Test Performed by: [facility] [place] [address] Associate Designer: Aric Villalobos III, M.D. 70 Test Performed by: [facility] [place] [address] Associate Designer: Aric Villalobos III, M.D. 71 Analyte Specific Reagent: This test was developed and its performance characteristics determined by [facility]. It has not been cleared or approved by the U.S. Food and Drug Administration. 72 Analyte Specific Reagent: This test was developed and its performance characteristics determined by [facility]. It has not been cleared or approved by the U.S. Food and Drug Administration. Test Performed by: [facility] - [address] [address] Associate Designer: Aric Villalobos III, M.D. 73 Because ethnic data is not always readily available, this report includes an eGFR for both -Americans and non- Americans. The National Kidney Disease Education Program (NKDEP) does not endorse the use of the MDRD equation for patients that are not between the ages of 18 and 70, are , have extremes of body size, muscle mass, or nutritional status, or are non- or non-. According to the National Kidney Foundation, irrespective of diagnosis, the stage of the disease is based on the level of kidney function: Stage Description GFR(mL/min/1.73 m(2)) 1 Kidney damage with normal or decreased GFR 90 2 Kidney damage with mild decrease in GFR 60-89 3 Moderate decrease in GFR 30-59 4 Severe decrease in GFR 15-29 5 Kidney failure <15 (or dialysis) 74 Because ethnic data is not always readily available, this report includes an eGFR for both -Americans and non- Americans. The National Kidney Disease Education Program (NKDEP) does not endorse the use of the MDRD equation for patients that are not between the ages of 18 and 70, are , have extremes of body size, muscle mass, or nutritional status, or are non- or non-. According to the National Kidney Foundation, irrespective of diagnosis, the stage of the disease is based on the level of kidney function: Stage Description GFR(mL/min/1.73 m(2)) 1 Kidney damage with normal or decreased GFR 90 2 Kidney damage with mild decrease in GFR 60-89 3 Moderate decrease in GFR 30-59 4 Severe decrease in GFR 15-29 5 Kidney failure <15 (or dialysis) 75 Reference Range and Interpretation: TnI (ng/mL) Interpretation Less Than 0.06 ng/mL Not supportive of diagnosis of UT 0.06 - 0.50 ng/mL Indeterminate: suggest serial studies if clinically indicated. Greater than 0.5 ng/mL Consistent with diagnosis of UT 76 Vitamin D deficiency has been defined by the [place] of [employer] and an Endocrine Society practice guideline as a level of serum 25-OH vitamin D less than 20 ng/mL (1,2). The Endocrine Society went on to further define vitamin D insufficiency as a level between 21 and 29 ng/mL (2). 1. IOM ([place] of [employer]). 2010. Dietary reference intakes for calcium and D. [place]: The National Academies Press. 2. Brandin Anguiano, Haim HUDSON, et al. Evaluation, treatment, and prevention of vitamin D deficiency: an Endocrine Society clinical practice guideline. JCEM. 2010; 96(7):1911-30. 77 Negative <1:80 Borderline 1:80 Positive >1:80 78 Negative <5 Equivocal 5 - 9 Positive >9 79 HLA-B*27 Negative . This test was performed using PCR (Polymerase Chain Reaction)/SSOP (Sequence Specific Oligonucleotide Probes) technique. SBT (Sequence Based Typing) and/or SSP (Sequence Specific Primers) may be used as supplemental methods when necessary. Please contact HLA Customer Service at if you have any questions. . Director of HLA Laboratory Dr Josh Mcfarland, PhD 80 FASTING; 2sst 81 Vitamin D deficiency has been defined by the [place] of [employer] and an Endocrine Society practice guideline as a level of serum 25-OH vitamin D less than 20 ng/mL (1,2). The Endocrine Society went on to further define vitamin D insufficiency as a level between 21 and 29 ng/mL (2). 1. IOM ([place] of [employer]). 2010. Dietary reference intakes for calcium and D. [place]: The National Academies Press. 2. Brandin Anguiano, Haim HUDSON, et al. Evaluation, treatment, and prevention of vitamin D deficiency: an Endocrine Society clinical practice guideline. JCEM. 2010; 96(7):1911-30. . Effective August 13, 2011, Vitamin D, 25 Hydroxy specimen requirements will change to serum only. 82 result rajesh'd 83 This test is a direct mutation analysis of leukocyte genomic DNA by the Invader Assay system (Invader, [employer], [place], [place]). 84 Analyte Specific Reagent This test was developed and its performance characteristics determined by Laboratory Medicine and Pathology, [facility]. It has not been cleared or approved by the U.S. Food and Drug Administration. 85 This individual DOES NOT have the Prothrombin [id number] mutation. Although the Prothrombin [id number] mutation is absent, the individual may have other genetic and environmental risk factors for thrombosis. Consider additional testing for hemostatic disorders associated with increased thrombosis risk, if indicated. Consider genetic consultation and counseling of potentially affected family members regarding laboratory testing. 86 Test Performed by: [facility] Dpt of Lab Med and Pathology [address] [place] [address] Associate Designer: Aric Villalobos III, M.D. 87 Interpretation: Negative (<10.0 GPL) 88 Interpretation: Negative (<10.0 MPL) Test Performed by: [facility] Dpt of Lab Med and Pathology [address] [place] [address] Associate Designer: Aric Villalobos III, M.D. 89 Interpretation: Negative (<10.0 APL) Test Performed by: [facility] Dpt of Lab Med and Pathology [address] [place] [address] Associate Designer: Aric Villalobos III, M.D. 90 No evidence of a lupus-like anticoagulant based on results of Prothrombin Time (PT), Activated Partial Thromboplastin Time (APTT) and Dilute Russells Viper Venom Time (DRVVT). Interpretation not reviewed by physician. Test Performed by: [facility] Dpt of Lab Med and Pathology [address] [place] [address] Associate Designer: Aric Villalobos III, M.D. 91 No evidence of resistance to Activated Protein C (APC). Normal results of Activated Protein-Resistance (APCRV) assay, excluding the patient as a carrier for the Factor V Leiden mutation. Test Performed by: [facility] Dpt of Lab Med and Pathology [address] [place] [address] Associate Designer: Aric Villalobos III, M.D. Procedures Date CPT Code Description Status Comment 12/28/2016 Mammogram Completed 04/30/2016 96968 Pulse Oximetry Completed 12/14/2014 25668 Finger Or Heel Stick Completed 08/30/2014 Mammogram Completed 08/09/2014 Colonoscopy Completed 07/25/2014 Colonoscopy Completed 2015 - 2 hyperplastic polyps. now repeat in 5 years 12/26/2012 92766 Pulse Oximetry Completed 11/26/2012 22459 Pulse Oximetry Completed 01/15/2011 Colonoscopy Completed Encounters Type Date Location Provider CPT E/M Dx Office Visit 11/22/2017 4:30p [facility] Maria Fernanda Miller, [place] [address]1802 R35.0 Office Visit 10/16/2017 1:00p [facility] Jacqui Joseph M.D. 20539 I10 R73.01 F41.1 Z77.21 D17.1 Office Visit 06/25/2017 2:40p [facility] Jacqui Joseph M.D. 59966 F41.1 Office Visit 06/18/2017 10:00a [facility] Jacqui Joseph M.D. 96279 R73.01 I10 F41.1 F33.1 I25.10 F10.21 E66.9 I83.11 M25.542 Office Visit 02/13/2017 4:30p [facility] Jacqui Joseph M.D. 54700 F41.1 F33.1 I10 I25.10 D17.22 R73.01 Office Visit 12/21/2016 11:00a [facility] Jacqui Joseph M.D. 86593 F41.1 F33.1 I10 I25.10 Z12.31 R11.0 Office Visit 11/22/2016 7:40p [facility] Office Jacqui Joseph M.D. 20064 F41.1 F33.1 F10.21 I10 I25.10 Office Visit 11/09/2016 3:10p [facility] Jacqui Joseph M.D. 28659 I25.10 R73.01 I10 F10.21 R20.8 F33.1 F41.1 M79.1 E78.1 Office Visit 07/14/2016 11:00a Main Office Jacqui Joseph M.D. 04003 J01.90 I25.10 R73.01 I10 Office Visit 06/30/2016 11:00a [facility] TJ Lauren 63364 Z11.59 R21 M79.671 Z23 Office Visit 04/30/2016 2:00p [facility] Suad Spence 90148 R06.00 K21.9 Office Visit 11/17/2015 3:15p Main Office TJ Lauren 50054 R20.8 R73.01 F10.21 M25.561 M25.521 M25.562 Office Visit 11/11/2015 3:45p Main Office Evelyne VillarrealEUSEBIO 72597 R20.8 Office Visit 09/15/2015 5:20p Main Office Jacqui Joseph M.D. 09214 F33.1 F10.21 R73.01 F41.1 I25.10 Z12.31 E66.8 G47.33 Office Visit 06/23/2015 3:00p Main Office Werner Bolivar M.D. 08714 F33.1 F10.21 R73.01 M25.561 Office Visit 05/19/2015 2:20p Main Office Werner Bolivar M.D. 12443 J01.90 F33.1 F10.21 R73.01 Office Visit 03/17/2015 3:30p Main Office Werner Bolivar M.D. 18983 F10.21 F33.1 F41.1 R60.0 M79.1 R73.01 Office Visit 02/10/2015 3:00p Main Office Werner Bolivar M.D. 89435 311 300.02 303.91 Office Visit 02/02/2015 1:15p [facility] YolaTJ Vasquez 98794 303.91 311 300.02 Office Visit 01/13/2015 2:50p Main Office Werner Bolivar M.D. 84978 303.91 782.3 790.21 Office Visit 12/14/2014 2:00p [facility] Werner Bolivar M.D. 59696 303.91 782.3 790.21 Office Visit 11/30/2014 4:00p [facility] Werner Bolivar M.D. 18480 782.3 729.1 303.91 Office Visit 11/15/2014 6:00p Main Office Neeru Patel M.D. 89174 782.3 303.91 311 338.4 Office Visit 11/13/2014 10:30a [facility] Werner Bolivar M.D. 35890 782.3 303.91 Office Visit 11/04/2014 3:30p Main Office Suad Harmon 03541 782.3 Office Visit 10/15/2014 2:30p [facility] Evelyne Villarreal, EUSEBIO 61818 782.3 Office Visit 09/30/2014 10:10a [facility] Neeru Patel M.D. 72491 303.91 311 427.0 401.9 Office Visit 08/16/2014 10:40a Main Office Neeru Patel M.D. 90140 303.91 785.6 V76.12 Office Visit 07/26/2014 5:40p Main Office Neeru Patel M.D. 65270 338.4 303.91 311 427.0 Office Visit 07/09/2014 2:00p [facility] Neeru Patel M.D. 30770 V74.1 Office Visit 06/17/2014 2:40p [facility] Neeru Patel M.D. 49001 401.9 303.91 790.6 268.9 Office Visit 05/11/2014 1:30p [facility] Neeru Patel M.D. 80242 303.91 311 300.02 716.99 Office Visit 10/22/2013 1:40p [facility] Neeru Patel M.D. 66610 239.2 727.42 303.91 V70.0 Office Visit 09/04/2013 1:40p [facility] Neeru Patel M.D. 19247 300.02 311 303.91 Office Visit 07/30/2013 2:00p [facility] Neeru Patel M.D. 91304 V70.0 311 300.02 303.91 305.1 356.8 Office Visit 07/28/2013 4:20p [facility] Werner Bolivar M.D. 06186 599.0 Office Visit 07/18/2013 11:45a Main Office Neeru Patel M.D. 65585 786.50 305.1 303.91 Office Visit 07/17/2013 3:15p [place] [address] 786.50 Office Visit 07/11/2013 11:20a Main Office Abelardo Zaldivar M.D. 93144 465.9 780.79 Office Visit 02/25/2013 4:15p Main Office Shade Tam M.D. 73188 v74.1 Office Visit 12/26/2012 1:00p [facility] Neeru Patel M.D. 18102 517.1 311 697.8 Office Visit 11/26/2012 10:00a [facility] Sadaf Mcarthur Afnp-C 93492 466.0 Office Visit 11/05/2012 10:45a [place] [address] 784.0 787.02 Office Visit 10/30/2012 9:20a [facility] Neeru Patel M.D. 73425 697.8 268.9 311 Office Visit 12/03/2011 4:10p Main Office Chema Suarez M.D. 64685 354.2 Office Visit 08/28/2011 4:00p Main Office Neeru Patel M.D. 05778 V70.0 327.23 716.99 375.15 346.22 268.9 790.6 Office Visit 07/10/2011 9:40a Main Office Neeru Patel M.D. 52640 311 719.44 V70.0 268.9 Office Visit 05/08/2011 9:00a Main Office Neeru Patel M.D. 85391 311 719.44 Office Visit 03/06/2011 3:30p [facility] Office Neeru Patel M.D. 17883 311 727.49 Office Visit 02/06/2011 3:30p [facility] Office Neeru Patel M.D. 89682 311 300.02 Office Visit 12/08/2010 3:30p [facility] Neeru Patel M.D. 58256 300.02 Office Visit 09/06/2010 1:00p [facility] Shade Tam M.D. 78459 346.20 Plan of Care 03/26/2018 - Jacqui Joseph M.D.Z00.01 Encounter for general adult medical exam w abnormal findingsNew Labs:CBC Electronic-ALL Lab CompaniComp Metabolic-ALL Lab CompaniLipid Panel-ALL Lab [facility] ([facility])Comments:Encourage an active and healthy lifestyle with proper eating habits including fruits, vegetables, 6-8 glasses of water a day and monitoring portion size. Recommend 30 minutes of daily physical activityincluding walking, aerobic exercise, sports , yoga or dance. Any activity is better than no activity.Recommend routine eye and dental exams. Next physical is due in 1-2 years.E66.9 Obesity, unspecifiedNew Labs:CBC Electronic-ALL Lab CompaniComp Metabolic-ALL Lab CompaniLipid Panel-ALL Lab [facility] ([facility])Hemoglobin A1c ([facility]) Microalb, Random ([facility])Free T4 ([facility])Ua - Micro ([facility])Comments: Counseled on heart healthy diet such as Mediterranean diet. Eat protein and vegetables first then carbohydrates last. Get at least 150 minutes of moderate aerobic activity or 75 minutes of vigorous aerobic activity a week, or a combination of moderate and vigorous activity. General goal of 30 minutes of physical activity a day.Follow up:fasting labs, 6 moI10 Essential (primary) hypertensionComments:The patient will continue to monitor blood pressure and let me know the blood pressure results if there are readings persistently above 140/80. Goal blood pressure is less than 140/80. Recommend low salt/cardiac diet and routine exercise.F41.1 Generalized anxiety disorderComments:stable on rdsbogfwirrP83.10 Athscl heart disease of [place] coronary artery w/o ang pctrsComments:continue present medication,will call if there is any increase in the frequency or severity of otdlgsZ64.33 Obstructive sleep apnea (adult) ( pediatric)Comments:return to [facility] for assessment of sleepiness while driving, don't drive while asleep consider modafinil discussed cardiac sewscV16.01 Impaired fasting glucoseNew Labs:Hemoglobin A1c ([facility])Comments:Counseled on heart healthy diet and exercise; limiting carbs and portion control, at least 30 minutes of physical activity daily; consider Mediterranean diet as a guide for healthy eating ; A1c> 6.5is diagnostic of iqyuoleaT83.31 Encntr screen mammogram for malignant neoplasm of breastNew Xrays:Mammography Screening, Bilateral; 2-View Each BreastComments:refer for vkmepixecS06.5 Low back painNew Medication:Cyclobenzaprine HCL 5 mgComments:Take medications as directed. Can use heat or ice on area 15 minutes on/off. Use a tennis ball or foam roller to massage and loosen muscle spasm. Stretching exercises are recommended twice a day. Callif symptoms aren't improved/worsen in next 1-2 weeks. Reviewed adverse side effects of medication. Advised to call the office if experiencing symptoms. Patient verbalized understanding. ibuprofen [id number] a day x 1 week if not better call office, may need repeat xrays and PTAllComments:~B_~U_ Medication Management~b_~u_ Patient Understands medications she's taking? Yes No Are there Barriers to Adherence? Yes No Has the patient been asked about herbal supplements and therapies, and OTC meds? Yes No
[2018-04-25 13:07] LABS: ABS Basophils 0.2 10^3/ul (0-0.2); ABS Eosinophils 0.1 10^3/ul (0-0.6); ABS Lymphocytes 1.9 10^3/ul (1.0-4.8); ABS Monocytes 0.4 10^3/ul (0-0.8); ABS Nucleated RBC 0 10^3/ul; Eosinophil % 1.3 % (0-6); Hematocrit 41 % (35-47); Hemoglobin 13.9 g/dl (12.0-16.0); Lymphocyte % 24.8 % (25-47); Mean Corpuscular HGB Conc 34 g/dl (31-36); Mean Corpuscular Hemoglobin 29 pg (27-31); Mean Corpuscular Volume 85 fL (80-97); Mean Platelet Volume 8.2 fL (7.4-10.4); Nucleated Red Blood Cells % 0.1; Platelet Count 203 10^3/ul (150-450); Red Blood Count 4.81 10^6/ul (4.00-5.40); Red Cell Distribution Width 15 % (10.5-15); White Blood Count 7.6 10^3/ul (3.5-10.8)
[2018-04-25 13:24] LABS: EGFR Non-African American 79.3 (>60)
[2018-04-25] MEDS ORDERED: ALPRAZolam TAB* 0.5 MG PO ONE (16:24)
[2018-04-25] MEDS ORDERED: Ondansetron INJ* 2 MG/ML VIAL IV PRN (17:15)
[2018-04-25] MEDS ORDERED: Al Hydrox/Mg Hydrox/Simet LIQ* 30 ML UDC PO PRN (17:15)
[2018-04-25] MEDS ORDERED: Magnesium Hydroxide LIQ* 30 ML UDC PO PRN (17:15)
[2018-04-25] MEDS ORDERED: Albuterol HFA INHALER* 8 gm MDI INH PRN (17:24)
--- NOTE | 2018-04-25 20:19 | HP ---
HISTORY AND PHYSICAL: ADDENDUM: The patient has been admitted due to recurrent chest "coldness." The plan is for the patient to have repeat troponin at 1830 tonight. In addition, she will have repeat labs in the morning. If the patient is asymptomatic and rules out, there is possibility that she could be discharged tomorrow with close followup with Dr. 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 This is the possibility as her POLO score is low 1 to 2. RUTH STEWART, EUSEBIO [id number]/CPS #: [id number] [place]
--- NOTE | 2018-04-25 21:16 | HP ---
ADDENDUM NOW INCLUDED ON THIS REPORT CC: Dr. Jacqui Joseph; Dr. Best * HISTORY AND PHYSICAL: DATE OF ADMISSION: 04/25/18 PRIMARY CARE PROVIDER: Dr. Jacqui Joseph. ATTENDING PHYSICIAN: Dr. Alvarez * (dictated by Ruth Stewart NP). CHIEF COMPLAINT: 1. Chest pain. 2. Shortness of breath. 3. Lightheadedness. HISTORY OF PRESENT ILLNESS: Mrs. Lieberman is a 52-year-old female with a past medical history of PVCs, obesity, anxiety, ETOH abuse, COPD, aspiration pneumonia, LA versus Takotsubo-type reaction, CAD with cardiac cath x2 (no stents, only medical management), borderline diabetes, Lyme disease, who presented to the ED today with complaints of intermittent chest "cold and tingling," shortness of breath, feeling "woozy." The patient reports these symptoms started around 8:30 this morning when she woke from a sleep, feeling out of breath, removed her BiPAP and felt as if her heart was racing. She adjusted her BiPAP and went back to sleep. Woke again at 9:15 with similar feelings, this time also feeling woozy; therefore, she took Xanax 0.5 mg which initially helped. Symptoms returned again later. The patient took nitro with no relief. The patient reports there is no aggravating or alleviating factor as these symptoms came and went on their own. The patient reports she considered calling EMS but her walkway was too snowy, therefore she drove herself to the emergency room this morning. When discussing other events leading up to her visit to the emergency room, the patient does report that over the past couple of weeks, she has noticed an increase of shortness of breath with exertion. Specifically, it takes her longer to recover from doing activity such as walking up the stairs. While in the emergency room, the patient received aspirin 325 mg and Xanax 0.5 mg once. The patient reports she has had 1 episode of chest cold and tingling, shortness of breath, woozy feeling while in the emergency room. While in the emergency room, they also obtained a chest x-ray, which was unremarkable. They also obtained troponins x2 , both of which were 0.00. Due to the patient continuing to have recurrence of symptoms while in the emergency department, we were asked to evaluate for admission. PAST MEDICAL HISTORY: 1. PVCs. 2. Obesity. 3. Anxiety. 4. ETOH history. 5. COPD. 6. Aspiration pneumonia. 7. IBS. 8. LA versus Takotsubo reaction in 2010, which led to a cardiac catheterization in 2010, which revealed moderate ostial left anterior descending with preserved LV function and no stent was placed, but instead aggressive risk modification was recommended. 9. Borderline diabetes. 10. Lyme disease. PAST SURGICAL HISTORY: 1. x2. 2. Hysterectomy. 3. Oophorectomy. 4. Cardiac cath x2 in 2010 and in 1999. HOME MEDICATIONS: 1. Albuterol inhaler 2 puffs inhalation q.6 hours p.r.n. 2. Alprazolam 0.25 to 0.5 mg p.o. t.i.d. p.r.n. up to 1 mg total daily. 3. Lexapro 20 mg p.o. q.a.m. 4. Vitamin D 1000 units p.o. q.a.m. 5. Calcium/magnesium 1 tab p.o. q.p.m. 6. Metoprolol XL Toprol 50 mg p.o. q.a.m. 7. Breo 1 inhalation q.a.m. 8. Duke 3 fatty acids 12,000 mg p.o. daily. 9. Multivitamin 1 p.o. q.a.m. 10. Vitamin B complex 1 tab p.o. q.a.m. 11. Spironolactone 25 mg p.o. q.a.m. for edema. ALLERGIES: NICKEL, SULFA. FAMILY HISTORY: The patient reports biological father at home, unknown cause. No known family history of diabetes. Maternal aunt with breast cancer. SOCIAL HISTORY: The patient is a former smoker. She quit 4 years ago and reports she smoked "forever." The patient is also a recovering alcoholic. She has been sober for 4 years. The patient denies drug use. 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 The patient is not . The patient lives alone. The patient is independent with her ADLs and walking at baseline. The patient's surrogate decision maker will be her daughter, Jovan Shipman, cell: [phone]. REVIEW OF SYSTEMS: Constitutional: No fevers. No anorexia. The patient reports intermittent feelings of lightheadedness. Cardiac: No chest pain. No edema. No palpitations. The patient reports intermittent "cold tingling" in chest. Respiratory: No cough. No hemoptysis. Intermittent shortness of breath , but not currently. GI: No vomiting, no diarrhea, no abdominal pain. Last BM on 04/25/18 and normal. : No gross hematuria. No dysuria. Neuro: No focal weakness or sensory loss. Eyes: No visual complaints. ENT: No sore throat, no nasal congestion, no ear pain. Musculoskeletal: No arthralgias or myalgias. Skin: No rashes or lesions. Psych: No psychosis. The patient reports a history of anxiety and depression. PHYSICAL EXAMINATION GENERAL: Mrs. Lieberman is a well-developed, well-nourished, obese, middle-aged female, sitting up in bed in the emergency room, in no acute distress. Appears stated age. VITAL SIGNS: BP 123/70, O2 of 96% RA, respiratory rate 17, HR 62, temp 96.9. HEENT: Eyes: Conjunctivae normal. EOMs intact. ENT: External ears and nose normal. Lips: Within normal limits. Mucous membranes moist. LYMPHATIC: No anterior or posterior cervical lymphadenopathy. No supraclavicular lymphadenopathy. RESPIRATORY: Effort: No accessory muscle use. The patient is breathing with ease. Lungs: Lung sounds are clear to auscultation. No rales, rhonchi or wheezing. CARDIAC: S1, S2 present. Rate and rhythm normal. No murmurs, rubs or gallops. Occasional PVCs noted on monitor during examination. ABDOMEN: Soft, nontender, nondistended. Bowel sounds x4. EXTREMITIES: Trace lower extremity edema. Pedal pulses positive. MUSCULOSKELETAL: No clubbing or cyanosis. No abnormalities. Full range of motion. SKIN: No rashes or abnormalities. NEURO: Moves all extremities well. No focal deficits noted. PSYCH: Alert and oriented x3. Mood is normal, affect normal. Denies SI or HI. DIAGNOSTIC STUDIES/LAB DATA: WBC 7.6, hemoglobin 13.9, hematocrit 41, platelets 203. D-dimer less than 200. Sodium 136, potassium 3.8, chloride 104 , carbon dioxide 25, BUN 20, creatinine 0.76, glucose 167, troponin 0.00, 0.00. EKG: Sinus bradycardia with a rate of 59. Nonspecific T-wave abnormalities. Chest x-ray: No active cardiopulmonary disease. ASSESSMENT AND PLAN: Mrs. Lieberman is a 52-year-old female with a past medical history of premature ventricular contractions, obesity, anxiety, ETOH abuse, chronic obstructive pulmonary disease, aspiration pneumonia, irritable bowel syndrome, myocardial infarction versus Takotsubo-type reaction, coronary artery disease, borderline diabetes, who presented to the emergency department today with complaints of chest, cold and tingling, shortness of breath, feeling woozy , who will be admitted for further workup due to previous history and comorbidities. The patient will be admitted to telemetry for: 1. Chest pain: Assessment: The patient is currently asymptomatic. She has sinus rhythm with occasional premature ventricular contractions on the monitor. Vital signs are stable. Troponins x2 are negative. Due to the patient's history of myocardial infarction versus Takotsubo-type reaction, stenosis of left anterior descending with preserved LV function, chronic obstructive pulmonary disease, borderline diabetes, obesity. She will be admitted for further workup and rule out progressing coronary artery disease. Plan: The patient will be admitted to telemetry. She will have repeat troponin at 1800. She will have CBC, BMP, CK-MB, TSH, fasting lipids, hemoglobin A1c tomorrow morning. She will also have a stress test on Saturday morning, which she will be n.p.o. for after midnight on Saturday. She will be placed on a heart healthy diet. 2. Premature ventricular contractions: Assessment: Occasional premature ventricular contractions noted on the monitor during assessment. The patient has been asymptomatic. Plan: The patient will be admitted on telemetry. I have ordered magnesium level to be drawn. 3. Obesity: Assessment: The patient's body mass index is 45. She is 136 kg. Plan: Fasting lipids and hemoglobin A1c ordered for tomorrow morning. The patient will be placed on a heart-healthy diet. The patient is to follow up with primary care regarding weight reduction, which will be reduce her risk of cardiovascular disease. 4. Anxiety: Assessment: The patient is intermittently anxious due to symptoms. Reports she has a history of anxiety, which she used to treat with alcohol, but she has been sober for 4 years. Plan: I have ordered the patient' s medications the same as home, Lexapro 20 mg p.o. q.a.m., and Xanax as needed. 5. ETOH history: Assessment: The patient has been sober for 4 years. Therefore, she does not need WA protocol. Plan: The patient will continue vitamin B supplementation. We have also ordered lipids and hemoglobin A1c for review. 6. Chronic obstructive pulmonary disease: Assessment: The patient's lung assessment within normal limits. We will continue the patient's Breo and Ventolin as needed. 7. Aspiration pneumonia: Assessment: Lung assessment within normal limits. Plan: No need to address at this time. Reports aspiration pneumonia was due to ETOH abuse. 8. Irritable bowel syndrome: Assessment: Abdomen assessment within normal limits. The patient is asymptomatic. Plan: Maalox, milk of magnesia, and Zofran ordered as needed. 9. Myocardial infarction versus Takotsubo-type reaction in 2010. Assessment: As above under chest pain diagnosis. Plan: As above under chest pain diagnosis. 10. Borderline diabetes: Assessment: The patient's blood sugar is currently 167. She has been placed on heart-healthy diet. Plan: I have ordered hemoglobin A1c to be drawn in the morning. 11. FEN: Plan: The patient will be on heart-healthy diet and n.p.o. after midnight on Saturday. 12. Code status: Full code. 13. DVT prophylaxis: Based on DVT risk assessment, the patient has a high risk. I will order heparin 5000 units subcu q.8 hours. TIME SPENT: Approximately 60 minutes were spent on this admission, greater than half of that spent with the patient and caregiver obtaining my history, performing physical exam, and reviewing my plan of care. The case has been reviewed with my attending, Dr. Alvarez, who is in agreement with the plan of care. RUTH STEWART NP ADDENDUM: The patient has been admitted due to recurrent chest "coldness." The plan is for the patient to have repeat troponin at 1830 tonight. In addition, she will have repeat labs in the morning. If the patient is asymptomatic and rules out, there is possibility that she could be discharged tomorrow with close followup with Dr. 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 This is the possibility as her POLO score is low 1 to 2. RUTH STEWART, HEALTH THERAPIST [id number]/CPS #: [id number] [id number]/CPS #: [id number] [place]
[2018-04-25] MEDS: Heparin VIAL(*) 5000 UNITS/ML VIAL (FIVE THOUSAND) SUBCUT SCH (21:27)
[2018-04-25] MEDS: CALCIUM PO SCH (22:40)
[2018-04-25] MEDS: MAGNESIUM PO SCH (22:40)
[2018-04-26] MEDS ORDERED: Calcium Carbonate CHEW TAB* 500 MG (TUMS) PO PRN (04:12)
[2018-04-26] MEDS: Heparin VIAL(*) 5000 UNITS/ML VIAL (FIVE THOUSAND) SUBCUT SCH ×3 (04:49→21:09)
[2018-04-26 05:42] LABS: ABS Basophils 0.1 10^3/ul (0-0.2); ABS Eosinophils 0.1 10^3/ul (0-0.6); ABS Lymphocytes 2.8 10^3/ul (1.0-4.8); ABS Monocytes 0.6 10^3/ul (0-0.8); ABS Neutrophils 5.9 10^3/ul (1.5-7.7); ABS Nucleated RBC 0 10^3/ul; Eosinophil % 1.4 % (0-6); Hematocrit 39 % (35-47); Hemoglobin 13.7 g/dl (12.0-16.0); Lymphocyte % 29.1 % (25-47); Mean Corpuscular HGB Conc 35 g/dl (31-36); Mean Corpuscular Hemoglobin 29 pg (27-31); Mean Corpuscular Volume 84 fL (80-97); Mean Platelet Volume 8.3 fL (7.4-10.4); Nucleated Red Blood Cells % 0; Platelet Count 201 10^3/ul (150-450); Red Blood Count 4.67 10^6/ul (4.00-5.40); Red Cell Distribution Width 15 % (10.5-15); White Blood Count 9.5 10^3/ul (3.5-10.8)
[2018-04-26 06:03] LABS: EGFR Non-African American 72.6 (>60)
[2018-04-26] MEDS: Metoprolol Succinate XL TAB* 25 MG PO SCH (08:58)
[2018-04-26] MEDS: Cholecalciferol TAB* 1000 UNITS PO SCH (08:58)
[2018-04-26] MEDS: Spironolactone TAB* 25 MG PO SCH (08:58)
[2018-04-26] MEDS: CMCS: Escitalopram (NF) 10 MG TAB PO SCH (08:58)
[2018-04-26] MEDS: Aspirin 81 mg CHEW TAB* 81 MG TAB.CHEW PO SCH (08:59)
[2018-04-26] MEDS ORDERED: Fluticasone/Vilanterol MDI(NF) 100/25 MDI INH SCH (09:00)
[2018-04-26] MEDS: Vitamin B Complex TAB PO SCH (09:02)
[2018-04-26] MEDS: Famotidine TAB* 20 MG PO SCH ×2 (11:33→19:43)
[2018-04-26] MEDS: ALPRAZolam TAB* 0.25 MG PO PRN (13:13)
[2018-04-26] MEDS ORDERED: Magnesium Sulfate 2 GM IV* 2 GM/50 ML BAG IVPB ONE (14:20)
--- NOTE | 2018-04-26 14:26 | PN ---
Subjective Date of Service: 04/26/18 Interval History: Patient is complaining of ongoing pain in her chest but of 2 different varieties. Patient complains of GERD pain which she is very familiar with which goes to the back of her throat and is associated with water brash and an acidic taste in her mouth. Patient also complains of a tingling and cold sensation in her chest which is similar to the sensation she had yesterday which at that time was associated with shortness of breath which is what prompted her to come in for evaluation at that time. Patient denies F/C, N/V, abdominal pain, dysuria , chest pain, diarrhea, dizziness, or other pain. Patient states she had mild improvement of her Reflux with Famotidine. Family History: Unchanged from Admission Social History: Unchanged from Admission Past Medical History: Unchanged from Admission Objective Active Medications: Acetaminophen (Tylenol Tab*) 650 mg PO Q4H PRN PRN Reason: FEVER/PAIN Al Hydrox/Mg Hydrox/Simethicone (Maalox Plus*) 30 ml PO Q6H PRN PRN Reason: INDIGESTION Last Admin: 04/26/18 04:25 Dose: 30 ml Albuterol (Ventolin Hfa Inhaler*) 2 puff INH Q6H PRN PRN Reason: DYSPNEA Alprazolam (Xanax Tab*) 0.25 mg PO TID PRN PRN Reason: ANXIETY Last Admin: 04/26/18 13:13 Dose: 0.25 mg Aspirin (Aspirin 81 Mg Chew Tab*) 81 mg PO DAILY [facility] Last Admin: 04/26/18 08:59 Dose: 81 mg Calcium Carbonate (Tums*) 500 mg PO Q4H PRN PRN Reason: HEARTBURN Last Admin: 04/26/18 04:25 Dose: 500 mg Cholecalciferol (Vitamin D Tab*) 1,000 units PO QAM [facility] Last Admin: 04/26/18 08:58 Dose: 1,000 units Escitalopram Oxalate (Lexapro (Nf)) 20 mg PO QAM [facility] Last Admin: 04/26/18 08:58 Dose: 20 mg Famotidine (Pepcid Tab*) 20 mg PO BID [facility] Last Admin: 04/26/18 11:33 Dose: 20 mg Fluticasone/Vilanterol (Breo Ellipta Mdi 100/25(Nf)) 1 puff INH QAM [facility] Last Admin: 04/26/18 08:01 Dose: Not Given Heparin Sodium (Porcine) (Heparin Vial(*)) 5,000 units SUBCUT Q8HR [facility] Last Admin: 04/26/18 13:13 Dose: 5,000 units Magnesium Sulfate (Magnesium Sulfate 2 Gm Iv*) 2 gm in 50 mls @ 50 mls/hr IVPB ONCE ONE Stop: 04/26/18 15:19 Magnesium Hydroxide (Milk Of Magnesia Liq*) 30 ml PO Q4H PRN PRN Reason: CONSTIPATION Metoprolol Succinate (Toprol Xl Tab*) 50 mg PO [facility] Last Admin: 04/26/18 08:58 Dose: 50 mg Non-Formulary Medication (Calcium/ Magnesium) 1 tab PO QPM [facility] Last Admin: 04/25/18 22:40 Dose: Not Given Ondansetron HCl (Zofran Inj*) 4 mg IV Q4H PRN PRN Reason: NAUSEA/VOMITING Spironolactone (Aldactone Tab*) 25 mg PO [facility] Last Admin: 04/26/18 08:58 Dose: 25 mg Vitamin B Complex/Vitamin E (B Complex-50*) 1 tab PO [facility] Last Admin: 04/26/18 09:02 Dose: 1 tab Vital Signs - 8 hr 04/26/18 04/26/18 04/26/18 07:04 08:00 13:13 Temperature 97.3 F Pulse Rate 58 Respiratory 14 20 18 Rate Blood Pressure 92/47 (mmHg) O2 Sat by Pulse 96 Oximetry Oxygen Devices in Use Now: None Appearance: Patient is a 52yo female who appears stated age and is sitting in the bed in [facility]> Eyes: No Scleral Icterus, PERRLA Ears/Nose/Mouth/Throat: NL Teeth, Lips, Gums, Clear Oropharnyx, Mucous Membranes Moist Neck: NL Appearance and Movements; NL JVP, Trachea Midline Respiratory: Symmetrical Chest Expansion and Respiratory Effort, Clear to Auscultation Cardiovascular: NL Sounds; No Murmurs; No JVD, RRR, No Edema Abdominal: NL Sounds; No Tenderness; No Distention, No Hepatosplenomegaly Lymphatic: No Cervical Adenopathy Extremities: No Edema, No Clubbing, Cyanosis Skin: No Rash or Ulcers, No Nodules or Sclerosis Neurological: Alert and Oriented x 3, NL Sensation, NL Muscle Strength and Tone , - - CN II-XII intact. Result Diagrams: 04/26/18 05:18 04/26/18 05:18 Assess/Plan/Problems-Billing Assessment: Patient is a 52yo female with a PMH for HTN, HLD, GERD, CAD, Takusubo's Cardiomyopathy, who had chest discomfort associated with shortness of breath and is currently admitted for rule out ACS with a stress test. - Patient Problems (1) Chest pain Current Visit: Yes Status: Acute Code(s): R07.9 - CHEST PAIN, UNSPECIFIED SNOMED Code(s): 76218439 Comment: - Several episodes of Chest Pain with shortness of breath and wooziness - Not similar to previous NSTEMI related to Takusubo's - Known CAD, Associated symptoms concerning for cardiac source - POLO score of 3, indicating a 13% 14 day risk of poor outcome. - Possibly GERD related. Start antacids. Poor reaction previously to PPIs - Relatively uncontrolled anxiety, continue anxiolytics as needed. (2) GERD (gastroesophageal reflux disease) Current Visit: Yes Status: Acute Code(s): K21.9 - GASTRO-ESOPHAGEAL REFLUX DISEASE WITHOUT ESOPHAGITIS SNOMED Code(s): 406436630 Comment: - Uncontrolled, history of ulcer - Start Tums, Maalox, Ranitidine - Previous poor reaction to PPI. (3) Anxiety Current Visit: No Status: Acute Code(s): F41.9 - ANXIETY DISORDER, UNSPECIFIED SNOMED Code(s): 26556979 Comment: - Continue alprazolam and escitalopram. - Relatively uncontrolled. (4) DVT prophylaxis Current Visit: No Status: Acute Code(s): QCI2843 - SNOMED Code(s): 899999197 Comment: - Heparin SQ. Status and Disposition: Inpatient for stress test on Saturday. Unacceptable risk of cardiac event if diacharged.
[2018-04-26] MEDS: CALCIUM PO SCH (16:12)
[2018-04-26] MEDS: MAGNESIUM PO SCH (16:12)
[2018-04-27] MEDS: ALPRAZolam TAB* 0.25 MG PO PRN ×2 (00:09→22:45)
[2018-04-27] MEDS: Acetaminophen TAB* 325 MG PO PRN ×2 (05:22→19:42)
[2018-04-27] MEDS: Heparin VIAL(*) 5000 UNITS/ML VIAL (FIVE THOUSAND) SUBCUT SCH ×3 (05:23→21:29)
[2018-04-27] MEDS: PTO:Fluticasone/Vilanterol MDI(NF) 200/25 MDI INH SCH (07:52)
[2018-04-27] MEDS: CMCS: Escitalopram (NF) 10 MG TAB PO SCH (09:27)
[2018-04-27] MEDS: [UNRECOGNIZED DRUG - OTHER] PO SCH ×2 (09:27→21:29)
[2018-04-27] MEDS: Metoprolol Succinate XL TAB* 25 MG PO SCH (09:27)
[2018-04-27] MEDS: Famotidine TAB* 20 MG PO SCH ×2 (09:28→21:29)
[2018-04-27] MEDS: Spironolactone TAB* 25 MG PO SCH (09:28)
[2018-04-27] MEDS: Vitamin B Complex TAB PO SCH (09:28)
[2018-04-27] MEDS: Aspirin 81 mg CHEW TAB* 81 MG TAB.CHEW PO SCH (09:28)
[2018-04-27] MEDS: Cholecalciferol TAB* 1000 UNITS PO SCH (09:28)
--- NOTE | 2018-04-27 11:34 | PN ---
Subjective Date of Service: 04/27/18 Interval History: Patient is feeling well today. No repeat CP. No other complaints except for poor sleep. Patient denies F/C, N/V abdominal pain, diarrhea, SOB, reflux, or other pain. Family History: Unchanged from Admission Social History: Unchanged from Admission Past Medical History: Unchanged from Admission Objective Active Medications: Acetaminophen (Tylenol Tab*) 650 mg PO Q4H PRN PRN Reason: FEVER/PAIN Last Admin: 04/27/18 05:22 Dose: 650 mg Al Hydrox/Mg Hydrox/Simethicone (Maalox Plus*) 30 ml PO Q6H PRN PRN Reason: INDIGESTION Last Admin: 04/26/18 04:25 Dose: 30 ml Albuterol (Ventolin Hfa Inhaler*) 2 puff INH Q6H PRN PRN Reason: DYSPNEA Alprazolam (Xanax Tab*) 0.25 mg PO TID PRN PRN Reason: ANXIETY Last Admin: 04/27/18 00:09 Dose: 0.25 mg Aspirin (Aspirin 81 Mg Chew Tab*) 81 mg PO DAILY [facility] Last Admin: 04/27/18 09:28 Dose: 81 mg Calcium Carbonate (Tums*) 500 mg PO Q4H PRN PRN Reason: HEARTBURN Last Admin: 04/26/18 04:25 Dose: 500 mg Cholecalciferol (Vitamin D Tab*) 1,000 units PO QAM [facility] Last Admin: 04/27/18 09:28 Dose: 1,000 units Escitalopram Oxalate (Lexapro (Nf)) 20 mg PO QAM [facility] Last Admin: 04/27/18 09:27 Dose: 20 mg Famotidine (Pepcid Tab*) 20 mg PO BID [facility] Last Admin: 04/27/18 09:28 Dose: 20 mg Fluticasone/Vilanterol (Breo Ellipta Mdi 200/25(Nf)) 1 puff INH QAM [facility] Last Admin: 04/27/18 07:52 Dose: 1 puff Heparin Sodium (Porcine) (Heparin Vial(*)) 5,000 units SUBCUT Q8HR [facility] Last Admin: 04/27/18 05:23 Dose: 5,000 units Magnesium Hydroxide (Milk Of Magnesia Liq*) 30 ml PO Q4H PRN PRN Reason: CONSTIPATION Metoprolol Succinate (Toprol Xl Tab*) 50 mg PO [facility] Last Admin: 04/27/18 09:27 Dose: 50 mg Non-Formulary Medication (Calcium/ Magnesium) 1 tab PO QPM [facility] Last Admin: 04/26/18 16:12 Dose: Not Given Pto:Nf (Wellness Formula Herbal Defense Complex Tablet) 1 dose PO BID [facility] Last Admin: 04/27/18 09:27 Dose: 1 dose Ondansetron HCl (Zofran Inj*) 4 mg IV Q4H PRN PRN Reason: NAUSEA/VOMITING Spironolactone (Aldactone Tab*) 25 mg PO [facility] Last Admin: 04/27/18 09:28 Dose: 25 mg Vitamin B Complex/Vitamin E (B Complex-50*) 1 tab PO [facility] Last Admin: 04/27/18 09:28 Dose: 1 tab Vital Signs - 8 hr 04/27/18 04/27/18 04/27/18 03:40 07:20 07:53 Temperature 97.9 F 98.1 F Pulse Rate 62 63 65 Respiratory 17 16 16 Rate Blood Pressure 99/49 121/65 (mmHg) O2 Sat by Pulse 94 97 96 Oximetry 04/27/18 08:00 Temperature Pulse Rate Respiratory 18 Rate Blood Pressure (mmHg) O2 Sat by Pulse Oximetry Oxygen Devices in Use Now: None Appearance: Patient is a 52yo female who appears stated age and is sitting in the bed in [facility]. Eyes: No Scleral Icterus, PERRLA Ears/Nose/Mouth/Throat: NL Teeth, Lips, Gums, Clear Oropharnyx, Mucous Membranes Moist Neck: NL Appearance and Movements; NL JVP, Trachea Midline Respiratory: Symmetrical Chest Expansion and Respiratory Effort, Clear to Auscultation Cardiovascular: NL Sounds; No Murmurs; No JVD, RRR, No Edema Abdominal: NL Sounds; No Tenderness; No Distention, No Hepatosplenomegaly Lymphatic: No Cervical Adenopathy Extremities: No Edema, No Clubbing, Cyanosis Skin: No Rash or Ulcers, No Nodules or Sclerosis Neurological: Alert and Oriented x 3, NL Sensation, NL Muscle Strength and Tone , - - CN II-XII intact. Result Diagrams: 04/26/18 05:18 04/26/18 05:18 Assess/Plan/Problems-Billing Assessment: Patient is a 52yo female with a PMH for HTN, HLD, GERD, CAD, Takusubo's Cardiomyopathy, who had chest discomfort associated with shortness of breath and is currently admitted for rule out ACS with a stress test. - Patient Problems (1) Chest pain Current Visit: Yes Status: Acute Code(s): R07.9 - CHEST PAIN, UNSPECIFIED SNOMED Code(s): 43368432 Comment: - Several episodes of Chest Pain with shortness of breath and wooziness - Not similar to previous NSTEMI related to Takusubo's - Known CAD, Associated symptoms concerning for cardiac source - POLO score of 3, indicating a 13% 14 day risk of poor outcome. - Possibly GERD related. Start antacids. Poor reaction previously to PPIs - Relatively uncontrolled anxiety, continue anxiolytics as needed. - Stress test on Saturday. (2) GERD (gastroesophageal reflux disease) Current Visit: Yes Status: Acute Code(s): K21.9 - GASTRO-ESOPHAGEAL REFLUX DISEASE WITHOUT ESOPHAGITIS SNOMED Code(s): 507850135 Comment: - Better controlled today - Start Tums, Maalox, Ranitidine - Previous poor reaction to PPI. (3) Anxiety Current Visit: No Status: Acute Code(s): F41.9 - ANXIETY DISORDER, UNSPECIFIED SNOMED Code(s): 67805412 Comment: - Continue alprazolam and escitalopram. - Better controlled today. (4) DVT prophylaxis Current Visit: No Status: Acute Code(s): [id number] - SNOMED Code(s): 600942197 Comment: - Heparin SQ. Status and Disposition: Inpatient for stress test on Saturday. Unacceptable risk of cardiac event if discharged.
[2018-04-27] MEDS: CALCIUM PO SCH (16:47)
[2018-04-27] MEDS: MAGNESIUM PO SCH (16:47)
[2018-04-28] MEDS: Heparin VIAL(*) 5000 UNITS/ML VIAL (FIVE THOUSAND) SUBCUT SCH ×3 (05:25→21:49)
[2018-04-28 06:11] LABS: EGFR Non-African American 73.7 (>60)
[2018-04-28] MEDS: PTO:Fluticasone/Vilanterol MDI(NF) 200/25 MDI INH SCH (07:48)
[2018-04-28] MEDS: Famotidine TAB* 20 MG PO SCH ×2 (10:53→21:49)
[2018-04-28] MEDS: ALPRAZolam TAB* 0.25 MG PO PRN ×2 (10:54→15:52)
[2018-04-28] MEDS ORDERED: Aminophylline IV* 25 MG/ML 10 ML VIAL ONE (11:05)
[2018-04-28] MEDS ORDERED: Regadenoson* 0.4 MG/5 ML SYRINGE ONE (11:05)
[2018-04-28] MEDS: Spironolactone TAB* 25 MG PO SCH (14:42)
[2018-04-28] MEDS: Metoprolol Succinate XL TAB* 25 MG PO SCH (14:42)
[2018-04-28] MEDS: Aspirin 81 mg CHEW TAB* 81 MG TAB.CHEW PO SCH (14:42)
[2018-04-28] MEDS: Vitamin B Complex TAB PO SCH (16:03)
[2018-04-28] MEDS: Cholecalciferol TAB* 1000 UNITS PO SCH (16:03)
[2018-04-28] MEDS: [UNRECOGNIZED DRUG - OTHER] PO SCH ×2 (16:04→21:50)
[2018-04-28] MEDS: CMCS: Escitalopram (NF) 10 MG TAB PO SCH (16:04)
--- NOTE | 2018-04-28 16:13 | PN ---
Subjective Date of Service: 04/28/18 Interval History: Patient very anxiety and upset this morning due to waiting for stress test. Stress test completed and intermediate risk. Last year had stress test was low risk. Dr Coyne called and will consult. Patient is asymptomatic. Denies cp, sob, palpitations, or n/v/d. Does report occasional acid reflux and anxiety. Family History: Unchanged from Admission Social History: Unchanged from Admission Past Medical History: Unchanged from Admission Objective Active Medications: Acetaminophen (Tylenol Tab*) 650 mg PO Q4H PRN PRN Reason: FEVER/PAIN Last Admin: 04/27/18 19:42 Dose: 650 mg Al Hydrox/Mg Hydrox/Simethicone (Maalox Plus*) 30 ml PO Q6H PRN PRN Reason: INDIGESTION Last Admin: 04/26/18 04:25 Dose: 30 ml Albuterol (Ventolin Hfa Inhaler*) 2 puff INH Q6H PRN PRN Reason: DYSPNEA Alprazolam (Xanax Tab*) 0.25 mg PO TID PRN PRN Reason: ANXIETY Last Admin: 04/28/18 15:52 Dose: 0.25 mg Aspirin (Aspirin 81 Mg Chew Tab*) 81 mg PO DAILY [facility] Last Admin: 04/28/18 14:42 Dose: 81 mg Calcium Carbonate (Tums*) 500 mg PO Q4H PRN PRN Reason: HEARTBURN Last Admin: 04/26/18 04:25 Dose: 500 mg Cholecalciferol (Vitamin D Tab*) 1,000 units PO QAM [facility] Last Admin: 04/28/18 16:03 Dose: 1,000 units Escitalopram Oxalate (Lexapro (Nf)) 20 mg PO QAM [facility] Last Admin: 04/28/18 16:04 Dose: 20 mg Famotidine (Pepcid Tab*) 20 mg PO BID [facility] Last Admin: 04/28/18 10:53 Dose: 20 mg Fluticasone/Vilanterol (Breo Ellipta Mdi 200/25(Nf)) 1 puff INH QAM [facility] Last Admin: 04/28/18 07:48 Dose: 1 puff Heparin Sodium (Porcine) (Heparin Vial(*)) 5,000 units SUBCUT Q8HR [facility] Last Admin: 04/28/18 14:46 Dose: 5,000 units Magnesium Hydroxide (Milk Of Magnesia Liq*) 30 ml PO Q4H PRN PRN Reason: CONSTIPATION Metoprolol Succinate (Toprol Xl Tab*) [facility] Admin: 04/28/18 14:42 Dose: 50 mg Non-Formulary Medication (Calcium/ Magnesium) 1 tab PO QPM [facility] Last Admin: 04/27/18 16:47 Dose: Not Given Pto:Nf (Wellness Formula Herbal Defense Complex Tablet) 1 dose PO BID [facility] Last Admin: 04/28/18 16:04 Dose: 1 dose Ondansetron HCl (Zofran Inj*) 4 mg IV Q4H PRN PRN Reason: NAUSEA/VOMITING Spironolactone (Aldactone Tab*) [facility] Last Admin: 04/28/18 14:42 Dose: 25 mg Vitamin B Complex/Vitamin E (B Complex-50*) 1 tab PO [facility] Last Admin: 04/28/18 16:03 Dose: 1 tab Vital Signs - 8 hr 04/28/18 04/28/18 04/28/18 10:54 13:05 15:24 Temperature 98.3 F Pulse Rate 79 Respiratory 20 18 18 Rate Blood Pressure 139/85 (mmHg) O2 Sat by Pulse 97 Oximetry 04/28/18 15:52 Temperature Pulse Rate Respiratory 18 Rate Blood Pressure (mmHg) O2 Sat by Pulse Oximetry Oxygen Devices in Use Now: None Appearance: NAD Eyes: No Scleral Icterus Ears/Nose/Mouth/Throat: Mucous Membranes Moist Neck: NL Appearance and Movements; NL JVP Respiratory: Symmetrical Chest Expansion and Respiratory Effort, Clear to Auscultation Cardiovascular: NL Sounds; No Murmurs; No JVD, RRR, No Edema Abdominal: NL Sounds; No Tenderness; No Distention Extremities: No Edema Skin: No Rash or Ulcers Neurological: Alert and Oriented x 3 Nutrition: Taking PO's Result Diagrams: 04/26/18 05:18 04/28/18 05:19 Additional Lab and Data: Laboratory Results - last 24 hr 04/28/18 05:19 Sodium 139 Potassium 3.9 Chloride 104 Carbon Dioxide 26 Anion Gap 9 BUN 18 Creatinine 0.81 Est GFR ( Amer) 89.2 Est GFR (Non-Af Amer) 73.7 BUN/Creatinine Ratio 22.2 H Glucose 122 H Calcium 9.5 Magnesium 1.8 L Assess/Plan/Problems-Billing Assessment: Patient is a 52yo female with a PMH for HTN, HLD, GERD, CAD, Takusubo's Cardiomyopathy, who had chest discomfort associated with shortness of breath and is currently admitted for rule out ACS with a stress test. - Patient Problems (1) Chest pain Comment: - Several episodes of Chest Pain with shortness of breath and wooziness - Not similar to previous NSTEMI related to Takusubo's - Known CAD, Associated symptoms concerning for cardiac source - POLO score of 3, indicating a 13% 14 day risk of poor outcome. - Possibly GERD related. Start antacids. Poor reaction previously to PPIs - Relatively uncontrolled anxiety, continue anxiolytics as needed. - Stress test was intermediate. Dr Coyne to consult - Patient asymptomatic (2) GERD (gastroesophageal reflux disease) Comment: - Increase in symptoms today due to NPO status. - Given PRN and symptoms resolved. - Previous poor reaction to PPI. (3) Anxiety Comment: - Continue alprazolam and escitalopram. - Situational anxiety today. (4) DVT prophylaxis Comment: - Heparin SQ. Status and Disposition: Inpatient. Intermediate risk stress test. Dr Coyne to consult Attending: Alejandro Spring
[2018-04-28] MEDS ORDERED: diPHENhydraMINE PO* 25 MG PO PRN (16:46)
[2018-04-28] MEDS ORDERED: Diazepam TAB(*) 5 MG PO PRN (16:46)
[2018-04-28] MEDS: MAGNESIUM PO SCH (17:30)
[2018-04-28] MEDS: CALCIUM PO SCH (17:30)
--- NOTE | 2018-04-28 20:04 | CONS ---
CC: Jacqui Joseph MD * CARDIOLOGY CONSULTATION NOTE: DATE OF CONSULT: 04/28/18 INDICATION FOR CONSULTATION: Chest pain, abnormal stress test. HISTORY OF PRESENT ILLNESS: The patient is a 52-year-old female with a history of hypertension, obesity, noncritical coronary artery disease on a cardiac catheterization in 2010 who is admitted to the hospital with increased shortness of breath, dyspnea, and atypical chest pain. The patient states she was at home and woke up in the middle of the night short of breath. She does use a BiPAP machine at night. She thought that the BiPAP machine had just slipped off over her face; however, she did wake up significantly short of breath. She was able to go back to bed and approximately 2 hours later she woke up with the exact same symptoms and at that time thought her BiPAP machine was on correctly. The patient finally got up around 6 o'clock in the morning. When she was getting to the living room, she started feeling a funny feeling in her chest. She sort of described it as a sprinkling feeling across her chest. She was also having some shortness of breath at that time. The patient thought it was panic disorder and took an alprazolam but 20 minutes later, she was continuing to have the same symptoms. The patient went out to move the snow off her car and was exceedingly short of breath, much more than she thought she should be. She came to the emergency room. In the emergency room, she ruled out for a myocardial infarction. She was observed over the weekend without any further episodes of symptoms. The patient underwent a chemical nuclear stress test today. Her nuclear images showed a moderate area of ischemia to her anterior wall. I did review her images personally. I also reviewed her images from 2017. At that time, she had no areas of ischemia to her anterior wall. The patient had a cardiac catheterization in 2010 when she came in with typical anginal-type symptoms. At that time, she had a 50% stenosis of her LAD. No other coronary artery disease. OUTPATIENT MEDICATIONS: 1. Metoprolol XL 50 mg a day. 2. Spironolactone 25 mg a day. 3. Calciferol 1000 units q.a.m. 4. Alprazolam as needed. 5. Albuterol inhaler. 6. Multivitamin a day. 7. Lexapro 20 mg a day. 8. [place]-3 fatty acid 1200 mg a day. ALLERGIES: NICKEL and SULFA MEDICATIONS. FAMILY HISTORY: Positive for coronary artery disease. Negative for cardiac arrhythmias. SOCIAL HISTORY: She lives alone. She does live with her cat. 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 She denies tobacco or alcohol use. She does not get any regular exercise. REVIEW OF SYSTEMS: Negative for fevers and chills. Negative for changes in bowel or bladder habits. Negative for changes of weight. PHYSICAL EXAM: Height is 5 feet 8 inches, weight is 300 pounds. Temperature 98.3, heart rate is 79, blood pressure 139/85, respiratory rate is 18, oxygen saturation 97% on room air. Sclerae anicteric. Oropharynx is pink without erythema. Carotids are 2+ without bruits. JVD is normal. Thyroid is normal. Cardiac Exam: S1, S2 without any murmurs, rubs, or gallops. Lungs: Clear to auscultation bilaterally. There is no dullness to percussion. Abdomen is obese , soft, nontender, nondistended with normoactive bowel sounds. Extremities show no edema. She has 2+ pulses throughout. The patient is awake, alert, and oriented. She moves all 4 extremities equally. LABORATORY STUDIES: CBC within normal limits. Chemistry is within normal limits. BUN 18, creatinine 0.8. Cholesterol levels: Total cholesterol 168, LDL of 83. Troponins are negative x3. IMPRESSION: This is a 52-year-old female who was admitted to the hospital with atypical chest pain. She ruled out for a myocardial infarction. Her chemical nuclear stress test shows a moderate area of ischemia to her anterior wall. Again compared to 2017, this is a new finding. The patient has a known 50% LAD stenosis from 2010. For now, my recommendation is that the patient continue on her current medications. Her blood pressure is under good control. She does not require a statin therapy at this point. The patient is on aspirin during this hospitalization. I had a long discussion with the patient regarding her findings on her exam and her symptoms. Overall, I am not overly concerned about her symptoms. She does not have any typical anginal-type symptoms. However, her moderate area of ischemia, which is clearly new from 2017 is concerning. My recommendation is that the patient undergo cardiac catheterization for definitive evaluation of her symptoms. The patient is in agreement with this. The risks and benefits were described in great detail and the patient is willing to proceed. [id number]/[facility] #: [id number] MTDD
[2018-04-28] MEDS ORDERED: NS 0.9% 1000 ML* 1,000 ML IV SCH (23:55)
[2018-04-29] MEDS: ALPRAZolam TAB* 0.25 MG PO PRN (00:08)
[2018-04-29 05:51] LABS: ABS Basophils 0.1 10^3/ul (0-0.2); ABS Eosinophils 0.1 10^3/ul (0-0.6); ABS Lymphocytes 2.3 10^3/ul (1.0-4.8); ABS Monocytes 0.6 10^3/ul (0-0.8); ABS Neutrophils 5.5 10^3/ul (1.5-7.7); ABS Nucleated RBC 0 10^3/ul; Eosinophil % 1.4 % (0-6); Hematocrit 38 % (35-47); Hemoglobin 13.4 g/dl (12.0-16.0); Mean Corpuscular HGB Conc 35 g/dl (31-36); Mean Corpuscular Hemoglobin 29 pg (27-31); Mean Corpuscular Volume 84 fL (80-97); Mean Platelet Volume 8.2 fL (7.4-10.4); Nucleated Red Blood Cells % 0.1; Platelet Count 181 10^3/ul (150-450); Red Blood Count 4.56 10^6/ul (4.00-5.40); Red Cell Distribution Width 15 % (10.5-15); White Blood Count 8.6 10^3/ul (3.5-10.8)
[2018-04-29] MEDS: Heparin VIAL(*) 5000 UNITS/ML VIAL (FIVE THOUSAND) SUBCUT SCH (05:51)
[2018-04-29] MEDS: PTO:Fluticasone/Vilanterol MDI(NF) 200/25 MDI INH SCH (07:34)
[2018-04-29] MEDS ORDERED: Heparin 2 UNITS/ML IVPREMIX* 2,000 ML IV ONE (08:03)
[2018-04-29] MEDS ORDERED: Lidocaine 1% INJ* 10 MG/ML 30 ML SDV ONE (08:03)
[2018-04-29] MEDS ORDERED: Iohexol 350 (CONTRAST) 200 ML MDV IV ONE (08:03)
[2018-04-29] MEDS ORDERED: VERAPAMIL 2.5 MG/ML 2 ML VIAL ** 5 mg/2 ml ONE (08:28)
[2018-04-29] MEDS ORDERED: nitroGLYCERIN DRIP* 25,000 MCG/250 ML BTL ONE (08:28)
[2018-04-29] MEDS ORDERED: fentaNYL* 50 MCG/ML 2 ML VIAL (100 MCG VIAL) ONE (08:28)
[2018-04-29] MEDS ORDERED: Heparin(*) 1000 UNIT/ML 10 ML VIAL CATH LAB IV ONE (08:28)
[2018-04-29] MEDS ORDERED: Midazolam* 1 MG/ML 10 ML VIAL (10 MG) ONE (08:28)
[2018-04-29] MEDS ORDERED: NS 0.9% 1000 ML* 1,000 ML IV SCH (09:30)
[2018-04-29 11:48] VITALS: BP 118/78
[2018-04-29] MEDS: Spironolactone TAB* 25 MG PO SCH (12:50)
[2018-04-29] MEDS: Metoprolol Succinate XL TAB* 25 MG PO SCH (12:50)
[2018-04-29] MEDS: Aspirin 81 mg CHEW TAB* 81 MG TAB.CHEW PO SCH (12:50)
[2018-04-29] MEDS: [UNRECOGNIZED DRUG - OTHER] PO SCH (12:51)
[2018-04-29] MEDS: Cholecalciferol TAB* 1000 UNITS PO SCH (12:51)
[2018-04-29] MEDS: Famotidine TAB* 20 MG PO SCH (12:51)
[2018-04-29] MEDS: Acetaminophen TAB* 325 MG PO PRN (12:56)
--- NOTE | 2018-04-30 08:49 | CATH ---
CARDIAC CATHETERIZATION NOTE: DATE OF PROCEDURE: 04/29/18 PROCEDURE: Cardiac catheterization including coronary angiography, left ventriculogram, left heart catheterization. INDICATION: Chest pain, abnormal stress test. The patient is a 52-year-old female with a history of hypertension, obesity, who was admitted to hospital with atypical chest pain. She had normal EKG and no troponin elevation. The patient underwent a chemical nuclear stress test, which showed a moderate area ischemia to her anterior wall. When compared to a stress test in 2017, this area of ischemia was new. The patient had a cardiac catheterization in 2010, which described a 50% stenosis of proximal LAD. Cardiac catheterization was recommended. DESCRIPTION OF PROCEDURE: The patient was brought to the cardiac catheterization lab in a fasting state. Informed consent had been obtained prior to the procedure. All labs were reviewed. The patient was placed supine on the catheterization table. The right radial area was prepped and draped in the usual fashion. 1% lidocaine was used for local anesthesia. The radial artery was entered by Seldinger technique and a guidewire was placed. Over the guidewire, a 6-Lebanese hydrophilic sheath was placed. Patient underwent coronary angiography and left ventriculogram using a 6-Lebanese TIG catheter and a 6-Lebanese pigtail catheter. At the end of the procedure, all sheaths and catheters were removed. The patient tolerated the procedure well with no complications. A total of 90 cc of Omnipaque dye was used. A total of 7.9 minute of fluoro time was used. FINDINGS: 1. Hemodynamics: Central aortic blood pressure 122/74 with a mean of 95. Left ventricular pressure 119/1 with an end-diastolic pressure of 16. 2. Left ventriculogram: Left ventricle was normal in size and systolic function. Estimated ejection fraction 65%. There were no focal wall motion abnormalities. Mitral valve and ascending aorta are normal. CORONARY ARTERIES: 1. Left main artery: The left main was normal in size that bifurcated into the LAD and circumflex. There was no evidence of stenosis. 2. Left anterior descending artery: The LAD was normal in size. It gave off 2 diagonal branches. There was no evidence of stenosis. 3. Left circumflex artery: The left circumflex artery was normal in size. It gave off 2 obtuse marginal branches. There was no evidence of stenosis. 4. Right coronary artery: The RCA was normal in size. It gave off the PDA. There was no evidence of stenosis. IMPRESSION: 1. Normal LV size and systolic function. 2. Normal coronary arteries. 3. Successful radial artery cardiac catheterization. RECOMMENDATION: The patient will continue on maximum medical therapy. [id number]/[facility] #: [id number] [facility]ITAL[facility]
--- NOTE | 2018-04-30 09:15 | DS ---
CC: Dr. Jacqui Joseph; Dr. Best * DISCHARGE SUMMARY: DATE OF ADMISSION: 04/25/18 DATE OF DISCHARGE: PRIMARY CARE PROVIDER: Dr. Jacqui Joseph. OTHER PROVIDER: Dr. Coyne. ATTENDING PHYSICIAN: Dr. Irene * (dictated by Ruth Stewart NP) PRIMARY DIAGNOSES: 1. Chest pain. 2. Anxiety. SECONDARY DIAGNOSES: 1. Premature ventricular contractions. 2. Obesity. 3. EtOH history. CONSULTATIONS WHILE IN HOSPITAL: Dr. Coyne, Cardiology. PROCEDURES WHILE IN THE HOSPITAL: 1. Stress test, which revealed intermediate risk due to positive moderate uptake defect on the stress images involving the anterior myocardium slightly extending to involve the septum. This is new since 11/16/16 nuclear stress test. 2. Cardiac catheterization, which was normal per Dr. Coyne. DISCHARGE MEDICATIONS: New Medications: No new home medications. Continued Home Medications: 1. Calcium 1000 mg p.o. b.i.d. 2. Ventolin 2 puffs inhalation q.6 hours p.r.n. 3. Xanax 0.25 mg p.o. t.i.d. p.r.n. 4. Lexapro 20 mg p.o. q.a.m. 5. Vitamin D 1000 units p.o. q.a.m. 6. Milk thistle 500 mg p.o. at bedtime. 7. Toprol-XL 50 mg p.o. q.a.m. 8. Breo Ellipta 1 inhalation q.a.m. 9. Fish oil 1200 mg p.o. daily. 10. Multivitamin 1 tab p.o. q.a.m. 11. Vitamin B complex 1 tab p.o. q.a.m. 12. Spironolactone 25 mg p.o. q.a.m. Changed Home Medications: No changed home medications. Discontinued Home Medications: No discontinued home medications. HISTORY OF PRESENT ILLNESS AND HOSPITAL COURSE: Mrs. Lieberman is a 52-year-old patient, who presented to the emergency department on 04/25/18. She has a history of PVC, obesity, anxiety, EtOH abuse, COPD, aspiration pneumonia, CT versus Takotsubo-type reaction, CAD with cardiac cath x2, but no stents, only medical management, borderline diabetes, Lyme disease, who presented to the ED with complaints of chest "cold and tingling," shortness of breath, and feeling "woozy." The patient reported that these symptoms woke her from her sleep at 8: 30 in the morning and then occurred again at 9:15 in the morning, at which time , she took Xanax, which initially helped and later took a nitro with no relief. She then drove herself to the emergency department where she was noted to have one episode of chest pain/symptoms, shortness of breath, wooziness. While in the emergency department, they also obtained a chest x-ray, which was unremarkable and they obtained 2 troponins both of which were 0.00. Due to her continuing to have symptoms and to her previous history, she was admitted to telemetry on Saturday evening for further evaluation, monitoring and stress test on Saturday morning. During the hospitalization, the patient's labs remained stable with most recent being today on 04/29/18, sodium 137, potassium 3.9, chloride 104, carbon dioxide 25, BUN 17, creatinine 0.78, glucose 125. WBC 8.6 , hemoglobin 13.4, hematocrit 38, platelets 181. During her hospital stay, she also had a D-dimer, which was less than 200, hemoglobin A1c which was 6.2 and fasting lipids, which were triglycerides of 245, cholesterol 158, LDL 83, HDL 35.7. In addition, she had a TSH, which was 2.42 and as previously mentioned troponins were all negative at 0. During this hospital stay, patient underwent nuclear medicine stress scan as mentioned above, which showed intermediate risk due to positive moderate uptake defect on the stress images involving the anterior myocardium, slightly extending to involve the septum. This was a new finding from her last stress test on 11/16/16. Due to these findings, Dr. Coyne was asked to consult. It should be mentioned that patient was asymptomatic at this time. Decision was made for patient to undergo a stress test this morning on 04/29/18. Patient underwent the cardiac catheterization this morning, which was unremarkable per Dr. Coyne and catheterization with a radial approach. It should also be noted that 40% to 50% LAD occlusion noted on cardiac catheterization in 2010 was not noted on this current cardiac catheterization. Mrs. Lieberman is stable for discharge, as she had a normal cardiac catheterization. Her vital signs are stable at 118/78, pulse 65, O2 sat 95% on room air, temperature 98.2. DISCHARGE PLAN: 1. Activity: Patient was instructed at length to keep right brace on wrist to limit bending and disruption to radial access site until tomorrow morning at 10 a.m. Patient states understanding. We also discussed at length signs/symptoms of worsening condition and when to return regarding this access site. 2. Diet: We discussed heart healthy diet and regular exercise. 3. We discussed medications as mentioned above. 4. Followup: Patient agrees to follow up with Dr. Best in the next 1 to 2 weeks. The patient also agrees to follow up with her primary care doctor, Dr. Joseph in the next 1 to 2 weeks. Patient also discussed following up with her GI, Dr. Shaffer, as she wonders if her acid reflux had something to do with this episode and I think that would be a good idea. 5. Patient was also educated on when to return to the ER or nearest hospital. For example, if she is experiencing new or worsening symptoms, shortness of breath, lightheadedness, dizziness, chest discomfort, high fevers, chills, night sweats, loss of consciousness, bleeding at the radial site, numbness and tingling in the fingers, bruising at the radial site, or any other worrisome signs or symptoms. Patient agrees to have her daughter come pick her up and drive her home. They will return to obtain her car tomorrow. This is a summarized report of a complex medical history and hospital stay. For further details, please see the entire medical record. TIME SPENT: Approximately 60 minutes were spent on this discharge, greater than half the time was spent [id number] with the patient discussing discharge plans and instructions. RUTH STEWART, EUSEBIO [id number]/[facility] #: [id number] [place]
== END 2018-04-29 15:11 | disposition home or self-care (01) | DRG 192 ==
LOC: ED 12:28 → MEDTELE 17:15
PROVIDERS: ADMIT Internal Medicine; ATTEND Hospitalist
PROC: 4A023N7 Measurement of Cardiac Sampling and Pressure, Left Heart, Percutaneous Approach (ICD-10-PCS; 2018-04-29)
PROC: B2151ZZ Fluoroscopy of Left Heart using Low Osmolar Contrast (ICD-10-PCS; 2018-04-29)
PROC: B2111ZZ Fluoroscopy of Multiple Coronary Arteries using Low Osmolar Contrast (ICD-10-PCS; principal; 2018-04-29 08:00)
DX: R07.9 Chest pain, unspecified (principal); J84.9 Interstitial pulmonary disease, unspecified; Z68.42 Body mass index [BMI] 45.0-49.9, adult; G47.30 Sleep apnea, unspecified; J30.2 Other seasonal allergic rhinitis; K58.9 Irritable bowel syndrome, unspecified; K21.9 Gastro-esophageal reflux disease without esophagitis; M46.90 Unspecified inflammatory spondylopathy, site unspecified; F41.9 Anxiety disorder, unspecified; F32.9 Major depressive disorder, single episode, unspecified; E66.9 Obesity, unspecified; J44.9 Chronic obstructive pulmonary disease, unspecified; I25.10 Atherosclerotic heart disease of native coronary artery without angina pectoris; I49.3 Ventricular premature depolarization; I10 Essential (primary) hypertension; Z82.49 Family history of ischemic heart disease and other diseases of the circulatory system; Z90.710 Acquired absence of both cervix and uterus; Z87.891 Personal history of nicotine dependence; I25.2 Old myocardial infarction; Z87.11 Personal history of peptic ulcer disease; Z88.2 Allergy status to sulfonamides; Z91.048 Other nonmedicinal substance allergy status; Z80.3 Family history of malignant neoplasm of breast; Z90.721 Acquired absence of ovaries, unilateral
CPT/HCPCS: 36415; 71045; 78452; 80048; 80053; 80061; 82553; 83036; 83605; 83735; 84443; 84484; 85025; 85379; 93005; 93017; 93458; 94640; 94660; 99156; 99157; 99284; A9270-GY; A9502; J0280; J1644; J2250; J2785; J3010; J3475

== ENCOUNTER 2019-01-22 09:53 | Day surgery (SDC) | payer BC ==
[~2019-01-22 09:53] MED LIST changes: -Buffered Lidocaine 0.9% SYRIN* 5 ML/SYR SYRINGE INTRADERM ONE; +Buffered Lidocaine 1% SYRIN* 1 ML/SYRINGE INTRADERM ONE; -Bupivacaine 0.25% SDV* 30 ML ONE; +Dexamethasone IV* 4 MG/ML 1 ML (4 MG) IV SLOW PU ONE; +Famotidine IV* 10 MG/ML 2 ML (20 mg) IV ONE; +HYDROcodone/ACETAMIN 5-325 MG* 1 TAB PO PRN; +Ketorolac INJ* 30 MG/ML 1 ML VIAL IV PRN; +Lactated Ringers 1000 ML Bag* 1,000 ML IV SCH; +Naloxone* 0.4 MG/ML 1 ML VIAL IV PRN; +PROCHLORPERAZINE INJ 5 MG/ML 2 ML VIAL IV PRN; -Sodium Citrate/Citric Acid* 15 ML UDC PO ONE; +fentaNYL* 50 MCG/ML 2 ML VIAL (100 MCG VIAL) IV PRN; +oxyCODONE/Acetamin 5/325 MG* TAB PO PRN
[2019-01-22] MEDS ORDERED: Famotidine IV* 10 MG/ML 2 ML (20 mg) ONE (10:37)
[2019-01-22] MEDS ORDERED: Dexamethasone IV* 4 MG/ML 1 ML (4 MG) ONE (10:37)
[2019-01-22] MEDS ORDERED: Bupivacaine 0.25% SDV* 30 ML ONE ×2 (11:24→12:04)
[2019-01-22] MEDS ORDERED: fentaNYL* 50 MCG/ML 2 ML VIAL (100 MCG VIAL) ONE ×2 (11:29→12:08)
[2019-01-22] MEDS ORDERED: Propofol* 10 MG/ML 20 ML BTL ONE ×2 (11:29→12:14)
[2019-01-22] MEDS ORDERED: Midazolam* 1 MG/ML 5 ML VIAL (5 MG) ONE (11:29)
[2019-01-22] MEDS ORDERED: KETAMINE HCL* 50 MG/ML 10 ML VIAL ONE (11:29)
[2019-01-22] MEDS ORDERED: Lidocaine 2% PF * 5 ML VIAL ONE (11:29)
[2019-01-22] MEDS ORDERED: ceFAZolin 2 GM in NS PREMIX(*) 2 GM/100 ML BAG IVPB ONE (11:38)
[2019-01-22] MEDS ORDERED: ceFAZolin VIAL(*) VIAL ONE (11:49)
[2019-01-22] MEDS ORDERED: Lidocaine 1% INJ* 10 MG/ML 30 ML SDV ONE (12:23)
[2019-01-22] MEDS ORDERED: Metoprolol Tartrate IV* 1 MG/ML 5 ML VIAL ONE (12:32)
--- NOTE | 2019-01-22 15:02 | OP ---
DATE OF OPERATION: 01/22/19 - [facility] DATE OF : 61 SURGEON: David Urbano MD SCIENTIFIC EDITOR: RALF Gonzalez ANESTHESIOLOGIST: Dr. Metz. ANESTHESIA: Local MAC. PRE-OP DIAGNOSES: 1. Left ulnar-sided wrist ganglion. 2. Sensory changes in the left dorsoulnar sensory nerve. 3. Tenosynovitis and probable cyst, left volar wrist. POST-OP DIAGNOSES: 1. Left ulnar wrist ganglion cyst. 2. Sensory changes in the left dorsoulnar sensory nerve. 3. Tenosynovitis about the left flexor carpi radialis tendon secondary to the patient's prior surgery. OPERATIVE PROCEDURE: 1. Excision of left ulnar wrist ganglion cyst. 2. Decompression left dorsoulnar sensory nerve at the wrist. 3. Exploration and partial tenosynovectomy, left wrist FCR tendon sheath. INDICATIONS: Jarrod has a large left ulnar-sided ganglion cyst, complained of quite a bit of sensory changes on the dorsoulnar sensory nerve. Additionally, she came in this morning to the operating room and noted a large amount of semi- lumpy tissue over the volar aspect of the left wrist near the FCR tendon in an area where we typically see a volar wrist ganglion cyst. I talked to her about her treatment options. She had wanted to proceed with surgery. She under- stands there is risk associated with surgery including the risk of radial artery injury, risk of nerve injury, and probably the biggest risk is risk of cyst recurrence. ESTIMATED BLOOD LOSS: 2 mL. COMPLICATIONS: None. FINDINGS: See above and below. DESCRIPTION OF PROCEDURE: Jarrod was seen in the preoperative holding area. The correct side, site, and procedure were identified. We came back to the operating room where the arm was prepped and draped in the usual fashion. I had injected 0.25% plain Marcaine about the operative area. A time-out was performed. The arm was exsanguinated with the Esmarch and the tourniquet was inflated to 225 mmHg. I first made a lazy-S incision over the volar wrist in the area of the FCR tendon. Dissection was carried down to the subcutaneous tissue. The radial artery was encountered and dissected free. No cyst was encountered. I came just a little bit ulnar and opened up the FCR tendon sheath. There was some tenosynovitis there that was excised. Ultimately, I do not think there was anything else to do there and so I irrigated out the wound and skin was closed with 4-0 nylon suture. I then came ulnar over the area of the cyst. I made a longitudinal incision over the cyst that was right near the midaxial line on the ulnar side of the wrist. The cyst was coming off the pisotriquetral joint and the palmar aspect of the ulnar carpal joint as was seen on MRI. Dissection was carried down. The ulnar sensory nerve was identified and decompressed and retracted out of the way. The cyst was encountered just deep to that. I went ahead and performed a marginal excision, tracked it all the way back down to the palmar aspect of the pisotriquetral joint. The cyst was amputated at the capsule and then that area was cauterized with the Bovie, taking great care not to get the cautery anywhere near the ulnar nerve. At this point, everything was looking good. I irrigated out the wound. Skin was closed with 4-0 nylon suture and the wounds were dressed with Xeroform, 4x4, sterile Webril, and then a cock-up wrist splint was applied. She was taken to the recovery room in stable condition. [id number]/[facility] #: [id number] ADELE
[2019-01-22 15:48] VITALS: BP 115/64
== END 2019-01-22 14:14 | disposition home or self-care (01) ==
LOC: OREAST 09:53
PROVIDERS: ATTEND Orthopaedic Surgery Hand Surgery
DX: M67.432 Ganglion, left wrist (principal); M65.832 Other synovitis and tenosynovitis, left forearm; R20.0 Anesthesia of skin; I10 Essential (primary) hypertension; E78.5 Hyperlipidemia, unspecified; J45.909 Unspecified asthma, uncomplicated; K21.9 Gastro-esophageal reflux disease without esophagitis; E11.9 Type 2 diabetes mellitus without complications; G47.33 Obstructive sleep apnea (adult) (pediatric); I25.10 Atherosclerotic heart disease of native coronary artery without angina pectoris; Z87.891 Personal history of nicotine dependence
CPT/HCPCS: 88304; J0690; J1100; J2250; J2704; J3010; J3490